=== PATIENT | female | born 1940 | race Caucasian/White ===

== ENCOUNTER 2020-08-09 11:03 | Outpatient (CLI) | payer MEDICARE, SELFPAY | END 2020-08-09 11:04 | disposition home or self-care (01) | LOC: ANHAUDIO 11:06 | DX: H90.3 Sensorineural hearing loss, bilateral (principal) | CPT/HCPCS: 92557; 92567 ==

== ENCOUNTER 2022-10-09 12:01 | Outpatient (CLI) | payer MEDICARE, SELFPAY ==
--- NOTE | 2022-10-09 12:18 | ECG_ITS ---
Measurements Intervals [place] Rate: 55 P: -29 [place]: 200 QRS: -21 QRSD: 86 T: 61 QT: 417 QTc: 399 Interpretive Statements SINUS BRADYCARDIA BORDERLINE LEFT AXIS DEVIATION [QRS AXIS < -20] BORDERLINE ECG NO PREVIOUS ECG AVAILABLE FOR COMPARISON Electronically Signed On 10-09-2022 17:16:44 CDT by James Salmon M.D.
[2022-10-09 12:44] LABS: Hematocrit 42.5 % (37.0-47.0); Hemoglobin 14.2 g/dL (12.0-15.0)
[2022-10-09 12:52] LABS: Albumin Level 4.6 g/dL (3.5-5.1); Estimated Glomerular Filt Rate 36
== END 2022-10-09 12:02 | disposition home or self-care (01) ==
PROVIDERS: PCP Internal Medicine; Visit Provider Orthopaedic Surgery
DX: Z01.818 Encounter for other preprocedural examination (principal); M17.11 Unilateral primary osteoarthritis, right knee; R00.1 Bradycardia, unspecified
CPT/HCPCS: 36415; 82040; 82565; 85014; 85018; 93005

== ENCOUNTER 2022-11-30 10:43 | Outpatient (CLI) | payer MEDICARE, SELFPAY ==
[2022-11-30 11:18] LABS: Hematocrit 39.4 % (37.0-47.0); Hemoglobin 13.1 g/dL (12.0-15.0); Mean Corpuscular HGB Conc 33.2 g/dl (32-36); Mean Corpuscular Hemoglobin 31.5 pg (26-34); Mean Corpuscular Volume 94.7 fl (80-100); Mean Platelet Volume 9.3 fl (7.4-10.4); Platelet Count Result 199 k/mm3 (150-375); Red Blood Count 4.16 M/mm3 (4.2-5.4); Red Cell Distribution Width 12.5 % (11.5-14.5); White Blood Count 7.3 K/mm3 (4.5-10.0)
[2022-11-30 11:26] LABS: Carbon Dioxide 29 mmol/L (22-30); Chloride 98 mmol/L (98-107); Potassium 3.6 mmol/L (3.4-5.0); Sodium 132 mmol/L (137-145)
[2022-11-30 11:27] LABS: Albumin Level 4.2 g/dL (3.5-5.1); Anion Gap 5 mmol/L (8-16); Blood Urea Nitrogen 21 mg/dL (7-17); Calcium 9.2 mg/dL (8.4-10.2); Estimated Glomerular Filt Rate 53; Glucose 106 mg/dL (65-110); Phosphorus 4.2 mg/dL (2.5-4.5)
[2022-11-30 11:49] LABS: Appearance Urine Clear (Clear); Bacteria Urine None Seen /hpf; Bilirubin Urine Negative (Negative); Blood Urine Negative (Negative); Color Urine Yellow (Yellow); Glucose Urine UA Negative (Negative); Hyaline Casts Urine Present /lpf; Ketones Urine Trace mg/dL (Negative); Leukocyte Esterase Ur 1+ LEU/UL (NEGATIVE); Nitrate Urine Negative (Negative); Protein Urine Negative (Negative); RBC Urine 0-2 /hpf (0-2); Specific Grav Ur 1.023 (1.001-1.035); Squamous Epithelial Cell Urine None seen /hpf (Few); WBC Urine 0-5 /hpf (0-3)
[2022-11-30 11:53] LABS: Add Urine Microscopic? YES
== END 2022-11-30 10:44 | disposition home or self-care (01) ==
DX: R79.89 Other specified abnormal findings of blood chemistry (principal)
CPT/HCPCS: 36415; 80069; 81001; 85027

== ENCOUNTER 2022-12-11 13:50 | Outpatient (CLI) | payer MEDICARE, SELFPAY ==
--- NOTE | ~2022-12-11 | CT_ITS ---
EXAMINATION: CT LE RT wo con DATE: 12/11/2022 14:25 INDICATION: Right knee osteoarthritis. Preop planning. TECHNIQUE: Computed tomography (CT) of the right lower limb was performed without intravenous contras t. Automated exposure control and iterative reconstruction technique were employed. The dose-length p roduct was 1750.13 mGy-cm. COMPARISON: Right knee radiographs 08/19/2022 FINDINGS: The right hip demonstrates normal bone alignment. No fracture. There is moderate right hip osteoarthritis. The right knee demonstrates severe osteoarthritis of the medial compartment and mild osteoarthritis of lateral and patellofemoral compartments. There is a small knee joint effusion. Ther e is a large Fam's cyst. IMPRESSION: 1. Severe right knee osteoarthritis. 2. Large Fam's cyst. 3. Small knee joint effusion. 4. Moderate right hip osteoarthritis. Reviewed, dictated and finalized at location E.
== END 2022-12-11 13:51 | disposition home or self-care (01) ==
LOC: ANHIMG 13:54
PROVIDERS: Visit Provider Orthopaedic Surgery
DX: Z01.818 Encounter for other preprocedural examination (principal); M17.11 Unilateral primary osteoarthritis, right knee; M71.21 Synovial cyst of popliteal space [Baker], right knee; M25.461 Effusion, right knee; M16.11 Unilateral primary osteoarthritis, right hip
CPT/HCPCS: 73700

== ENCOUNTER 2022-12-30 07:54 | Outpatient (CLI) | payer MEDICARE, SELFPAY ==
[2022-12-30 10:51] LABS: Urine Cotinine NEGATIVE
[2022-12-30 21:30] LABS: Hemoglobin A1C 5.2 % (<5.7)
== END 2022-12-30 07:55 | disposition home or self-care (01) ==
PROVIDERS: Visit Provider Orthopaedic Surgery
DX: Z01.818 Encounter for other preprocedural examination (principal); M17.11 Unilateral primary osteoarthritis, right knee
CPT/HCPCS: 80307; 83036; 87081

== ENCOUNTER 2023-01-28 01:26 | Day surgery (SDC) | payer MEDICARE, SELFPAY ==
[2022-12-30 08:23] VITALS: BMI 20.3
--- NOTE | 2022-12-30 08:36 | PC.NURSE ---
Report to the Outpatient Waiting Room, entrance under the green pavilion located off [facility], at time _0630 on date __01/28/23 . Planned Procedure Time: _829 . Time changes happen often and if your time is changed the preop area will call you the afternoon before. - You and your visitor will be asked to self-screen and do not enter if you have any COVID symptoms. - A mask is optional within the hospital at this time. Patients may have clear liquids (water, carbonated beverages, clear teas, apple juice) until 3 hours prior to surgery with a maximum of 20 ounces. - No food from midnight until time of surgery - Infants may have breast milk until 4 hours before surgery, formula 6 hours prior to surgery. - Children will be allowed to drink immediately following surgery. If applicable, please bring a bottle or sippy cup to assist with drinking. Juice, water, soda, and popsicles are readily available. For infants on formula, please bring formula the day of surgery. Pacifiers are allowed. Take the following medications with a SIP of water the morning of surgery: ____NONE DO NOT STOP ANY OF YOUR OTHER PRESCRIPTION MEDICATIONS PRIOR TO SURGERY ?EXCEPT THE FOLLOWING Medications to discontinue per physician NONE Date to take last dose TOTAL JOINT CLASS 12/30/22 AT 10 AM Please no make-up, nail hebrew, hairspray, perfume, deodorant, or body powder the day of surgery. No jewelry (including any body piercings) or valuables the day of surgery, leave them at home. Please take a shower or bath the night before, or the morning of, surgery with an antibacterial soap. Wear comfortable, loose fitting clothing. Children are encouraged to wear pajamas. - Jewelry must be removed prior to entering the operating room. Rings and piercings that are not removed may be cut off. - The hospital will not accept responsibility for valuables. - Please leave all valuables, including medications, at home the day of surgery. If you are going home after surgery, a licensed distribution driver must drive you home. - NO public transportation without another adult if you receive anesthesia. - We recommend that an adult stay with you for 24 hours following discharge. - We also recommend that you do not drive, make important decision, drink alcoholic beverages, or take any drugs that were not prescribed by your health care provider for at least 24 hours after your discharge time. For Pediatric surgeries, we recommend two adults accompany the child home. Follow any additional instructions given to you from your surgeon. If you or anyone in your household have experienced Covid symptoms in the past week, please notify your surgeon or the nurse liaison at the phone number below for possible testing. VERBAL AND WRITTEN instructions given to _PATIENT and asked if any additional questions and then verbalized understanding. Patient advised to call surgeon office or pre surgery nurse liaison [phone] if any additional questions.
[2022-12-30 08:51] VITALS: BP 144/77; PULSE 64; RESP 18; TEMP 36.8; O2SAT 100
[2023-01-28] VITALS (12 sets, daily range): BP systolic 123–155; BP diastolic 73–86; PULSE 61–89; RESP 10–20; TEMP 36.4–36.9; O2SAT 96–100
--- NOTE | ~2023-01-28 | XR_ITS ---
Right Knee Technique: Portable AP and crosstable lateral views Clinical History: Status post TKR Findings: Patient is status post total knee replacement. Orthopedic hardware alignment appears anatom ic. No hardware complication is evident. Subcutaneous emphysema and swelling is likely postoperative in nature. No acute osseous fracture is seen. Impression: Status post total knee replacement, without evidence of hardware complication. Reviewed, dictated and finalized at location . Impression: Status post total knee replacement, without evidence of hardware complication.
[2023-01-28] MEDS: ACETAMINOPHEN 500 MG TABLET 1000 MG PO ×2 (07:14→13:41)
[2023-01-28] MEDS: LACTATED RINGERS 1,000 ML 30 ML IV CONT ×2 (07:20→10:53)
[2023-01-28] MEDS: TRANEXAMIC ACID 1,000MG/ISO100 1,000 MG/100 ML BAG 200 MG IVPB (07:36)
--- NOTE | 2023-01-28 07:42 | WPDANESEPPF ---
Anes - Initial Pre Proc Eval Procedure: Operation Date: 01/28/23 08:30 Proposed Procedures p Right Custom Total Knee Arthroplasty - Tyrell Alvarez MD Date/Time: 01/28/23 07:42 Surgeon: Tyrell Alvarez MD Pre Op Diagnosis: primary oa right knee Patient Data Age: 82 Gender: F Height: 1.55 m Weight: 47.7 kg Last Vital Signs Temp 36.7 C 01/28/23 07:32 Pulse 65 01/28/23 07:32 Resp 16 01/28/23 07:32 BP 133/81 01/28/23 07:32 Pulse Ox 100 01/28/23 07:32 O2 Del Method Room Air 01/28/23 07:32 Allergies Allergy/AdvReac Type Severity Reaction Status Date / Time No Known Allergies Allergy Verified 01/28/23 07:31 Home Medications Medication Instructions Recorded Confirmed Type acetaminophen 500 mg tablet 1,000 mg PO Q6H PRN Pain 11/08/19 01/28/23 History (Tylenol Extra Strength) amlodipine 10 mg tablet 10 mg PO HS 12/30/22 01/28/23 History tramadol 50 mg tablet 50 mg PO PRN PRN Pain 12/30/22 01/28/23 History Patient hx anesthesia problems: none Family hx anesthesia problems: none Results Review: All pre-operative results and documents have been reviewed as part of the pre-operative evaluation. 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, left Family History Family History Other Family history of arthritis Social History Social History Smoking status: Never smoker Additional smoking assessment comments: DENIES ANY FORM OF TOBACCO USE Alcohol intake: current Lack of Transportation: No Lack of Food: Never True Current Housing: I Have Housing Concerned About Future Housing: No Difficulty Paying Gas/Electric Bills: No Difficulty Paying for Meds: No Currently Unemployed: No Education: High School Diploma/GED Difficulty w/ Childcare or Family Care: No Living arrangements: alone Spiritual care concerns: No Anes - Eval Final PreProcedure Day of Procedure 01/28/23 07:42 Patient weight: thin Heart: regular rate and rhythm Lungs: clear to auscultation Airway: Mallampati scale class II Neurological: alert and oriented Last oral intake: >/= 8 hours ASA classification: II Emergent: no Anesthetic plan: proceed Anesthesia type and monitoring: general LMA and standard monitoring Results Review: All pre-operative results and documents have been reviewed as part of the pre-operative evaluation. Informed Consent: The patient's anesthetic plan and its attendant risks and benefits were discussed with the patient/family/POA. Questions were solicited and answers provided to the satisfaction of the patient/family/POA.
--- NOTE | 2023-01-28 08:26 | WPDHPUPDATE1 ---
History and Physical Update Update Date/Time: 01/28/23 08:26 History and Physical has been reviewed, including an updated exam of the patient. There are NO changes in the patient's condition. Risks, benefits, and alternatives have been discussed and questions answered. Patient agrees to proceed with procedure.
--- NOTE | 2023-01-28 08:42 | WPDANESPNB ---
Anes - Peripheral Nerve Block Date/Time: 01/28/23 08:42 I have discussed with the patient/family/POA the placement of a peripheral nerve block for post-operative pain management, including associated risks, benefits, complications, and side effects. Alternative methods of post-operative analgesia were detailed. Questions were solicited and answers provided to the satisfaction of the patient/family/POA. Time-Out: A pre-procedural Time-Out was completed immediately before starting the procedure and confirmed: Patient Identification, Site, Procedure, Patient Position and the Availability of Requisite Equipment. Clinical Indications: Acute post-operative pain management requested by the operative surgeon. Nerve Block Insertion Note Anes-nerve block: adductor canal right Patient position: supine Skin prep: chlorhexidine Needle: 22 gauge, stimulating, insulated echogenic needle. Needle length: 50 mm Technique: ultrasound Injectate: bupivacaine 0.5% with epi 5 mcg/ml (30cc no epi) and dexamethasone (mg) (8) Observations: tolerated well Complications: none Procedure start time:: 734 Procedure end time:: 739
[2023-01-28] MEDS: ceFAZolin 2 GM/D5W 50 ML 2 GM/50 ML BAG IVPB ×2 (08:44→16:28)
[2023-01-28] MEDS: GENTAMICIN BONE CEMENT REFOBACIN 1 EACH TOPICAL (09:22)
--- NOTE | 2023-01-28 11:44 | PC.NURSE ---
To room 327 per stretcher from OR.
--- NOTE | 2023-01-28 12:41 | W.PM.PROC2 ---
Procedure Note - Detailed Date of Procedure 01/28/23 Pre-op Diagnosis primary oa right knee Post-op Diagnosis Same Procedure Performed Total knee arthroplasty, right. Surgeon Tyrell Alvarez MD High Pressure Cleaner Louann Saba PA-C Anesthesia General and Regional (Subsartorial block.) Findings Satisfactory bone quality. Semi custom implant with excellent fit and balance. Description of Procedure Preoperative antibiotics were given. The limb was prepped and draped in the usual sterile fashion with a well-padded tourniquet high on the thigh. The limb was exsanguinated and the tourniquet inflated to 300 mmHg. A longitudinal incision was created just medial to the patella. A trivector approach to the knee was performed. Arthrotomy was taken down through the joint capsule. No significant releases were initially taken. The femur was exposed and the F1 jig was applied. The coring tool was used to remove the cartilage for the F2 jig to sit flush with the bone. The jig was pinned and the distal cut carefully taken. Caliper measurements confirmed appropriate bony resections according to the preoperative templated plan. The F4 cutting jig for the femur was applied, at the standard rotation. The AP and anterior chamfer cuts were taken. The F5 jig was applied and the posterior chamfer cuts were taken. The tibia was prepared using the T1 jig, after removing cartilage for the jig contact points. Proper alignment was checked with the alignment irineo. The tibia was cut using the T1u guide. Gap balancing was performed. Gap measurements were taken and the knee was trialed. Excellent alignment and soft tissue balancing was confirmed. The posterior cruciate ligament was recessed along the proximal tibia. The patella was cut for resurfacing. Three lug holes were drilled. Meniscal remnants were removed. The trial components were assembled. Excellent range of motion and proper soft tissue balancing were confirmed throughout the full range of motion. Patellar tracking was excellent. The knee was copiously irrigated periodically throughout the procedure. The real implants were cemented into position. Excess cement was carefully removed. The wound was closed in layers with interrupted #1 Vicryl suture, #2 strata fix suture, 2-0 strata fix suture, 3-0 strata fix suture. Steri-Strips placed on the skin with the knee flexed. Sterile bulky dressing applied. The patient was brought to the recovery room in stable condition. There were no complications. [Physician geological survey field assistant, Louann Saba PA-C, required for surgery; including patient positioning, draping, tissue retraction, maintaining instrument position, cement removal, wound closure, and dressing placement.] Implants Conformis Imprint total knee arthroplasty. Cemented. Cruciate retaining. 7 mm insert. 32 mm round patella. Estimated Blood Loss 50 Tourniquet Time 65 Drains No Complications No immediate complications Condition Stable Disposition PACU [facility] Billing Surgery - Charge Forward: Surgery Billing
[2023-01-28] MEDS: SENNA/DOCUSATE SODIUM TABLET 2 TAB PO (16:28)
[2023-01-28] MEDS: ASPIRIN 81 MG ENTERIC TABLET PO (16:29)
[2023-01-28] MEDS: traMADol HCL (*CRX) 50 MG TABLET PO (16:29)
[2023-01-28] MEDS: FAMOTIDINE 20 MG TABLET PO (20:33)
[2023-01-28] MEDS: amLODIPine BESYLATE 5 MG TABLET 10 MG PO (20:33)
[2023-01-29] VITALS: BP 143/76; PULSE 87; RESP 14; TEMP 36.6; O2SAT 96
[2023-01-29] MEDS: ACETAMINOPHEN 500 MG TABLET 1000 MG PO ×3 (00:17→11:34)
[2023-01-29] MEDS: ceFAZolin 2 GM/D5W 50 ML 2 GM/50 ML BAG IVPB (00:18)
[2023-01-29 04:00] VITALS: BP 120/71; PULSE 71; RESP 12; TEMP 36.2; O2SAT 97
[2023-01-29 06:36] LABS: Basophils Percent Auto 0.2 % (0.2-1.2); Eosinophils Percent Auto 0.4 % (0-4.4); Hematocrit 32.9 % (37.0-47.0); Hemoglobin 10.8 g/dL (12.0-15.0); Immature Granulocyte Absolute 0.06 K/mm3 (0.00-0.031); Immature Granulocyte Percent A 0.6 % (0-0.5); Lymphocytes Absolute Auto 0.86 K/mm3 (0.9-3.2); Lymphocytes Percent Auto 8.2 % (18.3-44.2); Mean Corpuscular HGB Conc 32.8 g/dl (32-36); Mean Corpuscular Hemoglobin 30.8 pg (26-34); Mean Corpuscular Volume 93.7 fl (80-100); Mean Platelet Volume 9.3 fl (7.4-10.4); Monocytes Absolute Auto 1.1 K/mm3 (0.1-0.6); Monocytes Percent Auto 10.3 % (2.6-8.5); Neutrophils Absolute Auto 8.5 K/mm3 (1.3-6.7); Neutrophils Percent Auto 80.3 % (45.5-73.1); Platelet Count Result 185 k/mm3 (150-375); Red Blood Count 3.51 M/mm3 (4.2-5.4); Red Cell Distribution Width 13.2 % (11.5-14.5); White Blood Count 10.5 K/mm3 (4.5-10.0)
[2023-01-29 07:06] LABS: Anion Gap 6 mmol/L (8-16); Blood Urea Nitrogen 21 mg/dL (7-17); Calcium 8.4 mg/dL (8.4-10.2); Carbon Dioxide 27 mmol/L (22-30); Chloride 101 mmol/L (98-107); Estimated CRCL calculation 33 ml/min; Estimated Glomerular Filt Rate 60; Glucose 97 mg/dL (65-110); Potassium 3.4 mmol/L (3.4-5.0); Sodium 134 mmol/L (137-145)
--- NOTE | 2023-01-29 08:13 | PM.DS ---
DS: Admitting Diagnosis Discharge Date 01/29/23 Admitting Diagnosis OA knee Right DS: Discharge Diagnosis Discharge Diagnosis (1) Status post total right knee replacement: Code(s): Z96.651 - Presence of right artificial knee joint Status: Acute Assessment and Plan: Postop day 1: Right total knee arthroplasty. Patient tolerated procedure well. No complications. Pain manageable with pain medication. No numbness or tingling. We had a lengthy discussion regarding postoperative wound care, limitations, expectations, and exercises. Patient shows good understanding. She has had initial physical therapy and is tolerating it well. DVT prophylaxis: 81 mg baby aspirin b.i.d. for 14 days. Pain medication: Percocet. Meloxicam. Prednisone. Patient has followup appointment with Dr. Alvarez in 3 weeks. DS: Summary Hospital Course Reason for hospitalization: Total knee arthroplasty Hospital Course: Patient tolerated procedure well. Has had initial PT/OT. Status at Discharge Functional status at discharge: uses cane/walker Overall status at discharge: patient is progressing back to baseline Time Spent with Patient Time attestation: Total time spent providing and/or coordinating discharge services: Exam Narrative: Thin 82-year-old female. Resting comfortably in chair. Alert and oriented x3. No acute distress. Wearing compression socks bilaterally. Dressing dry and intact without drainage. Moderate swelling. No ecchymosis. No erythema. No hematoma. Range of motion limited due to pain. Calf nontender. Neurologic status intact. No varicosities. Distal pulses palpable. DS: Data Data Completed and Pending Labs on day of discharge: Labs from last 24 hours 01/29/23 01/28/23 06:16 07:12 WBC 10.5 H RBC 3.51 L Hgb 10.8 L Hct 32.9 L MCV 93.7 MCH 30.8 MCHC 32.8 RDW 13.2 Plt Count 185 MPV 9.3 Immature Gran % (Auto) 0.6 H Neut % (Auto) 80.3 H Lymph % (Auto) 8.2 L [place] % (Auto) 10.3 H Eos % (Auto) 0.4 Baso % (Auto) 0.2 Lymph # (Auto) 0.86 L [place] # (Auto) 1.1 H Eos # (Auto) 0.0 Baso # (Auto) 0.0 Abs Immat Gran (auto) 0.06 H Absolute Neuts (auto) 8.5 H Absolute Nucleated RBC 0.0 Nucleated RBC % 0.0 Sodium 134 L Potassium 3.4 Chloride 101 Carbon Dioxide 27 Anion Gap 6 L BUN 21 H Creatinine 0.90 Estim Creat Clear Calc 33 Estimated GFR 60 Glucose 97 Calcium 8.4 Antibody Screen Negative Discharge Plan Discharge Patient Disposition: Home, Self-Care Discharge Instructions: See green instruction sheets Stand Alone Forms: General Discharge Instructions Follow-up/Referrals: Louann Saba PA [Physician Sales Route Driver Helper] - Discharge Medications: New aspirin 81 mg tablet,delayed release (DR/EC) 81 mg PO BID 14 Days Qty: 28 0RF prednisone 5 mg tablet 5 mg PO DAILY 21 Days Qty: 21 0RF oxycodone-acetaminophen 5-325 mg tablet 1 - 2 tablet PO Q4-6H MDD 6 PRN (Reason: pain) Qty: 30 0RF Continued acetaminophen [Tylenol Extra Strength] 500 mg tablet 1,000 mg PO Q6H PRN (Reason: Pain) amlodipine 10 mg tablet 10 mg PO QPM tramadol 50 mg tablet 50 mg PO PRN PRN (Reason: Pain)
[2023-01-29] MEDS: FAMOTIDINE 20 MG TABLET PO (08:44)
[2023-01-29] MEDS: polyethylene glycoL 3350 17 GM POWD.PACK PO (08:44)
[2023-01-29] MEDS: SENNA/DOCUSATE SODIUM TABLET 2 TAB PO (08:44)
[2023-01-29] MEDS: predniSONE 5 MG TABLET PO (08:45)
[2023-01-29] MEDS: oxyCODONE HCL (*CRX) 5 MG TAB IR PO (08:45)
[2023-01-29] MEDS: ASPIRIN 81 MG ENTERIC TABLET PO (08:45)
[2023-01-29 09:28] VITALS: BP 107/65; PULSE 70; RESP 16; TEMP 36.6; O2SAT 98
[2023-01-29] MEDS: CEPHALEXIN 500 MG CAPSULE PO (11:34)
== END 2023-01-29 12:30 | disposition home or self-care (01) ==
LOC: ANHSURGERY 08:25 → ANH3MEDSUR 11:45
PROVIDERS: Physician Assistant Surgical; Visit Provider Orthopaedic Surgery
PROC: (CPT 27447; principal; 2023-01-28 08:30)
DX: M17.11 Unilateral primary osteoarthritis, right knee (principal); G89.18 Other acute postprocedural pain; I10 Essential (primary) hypertension
CPT/HCPCS: 27447; 64447; 36415; 73560; 80048; 85025; 86850; 86900; 86901; 97110; 97116; 97161; 97165; 97530; 97535; A9270; C1713; C1776; J0171; J0690; J1100; J1170; J1885; J2250; J2270; J2405; J2704; J2795; J3010; J7120; J7512

== ENCOUNTER 2023-03-15 10:15 | Outpatient (CLI) | payer MEDICARE, SELFPAY ==
[2023-03-15 11:13] LABS: Hematocrit 37.5 % (37.0-47.0); Hemoglobin 12.1 g/dL (12.0-15.0); Mean Corpuscular HGB Conc 32.3 g/dl (32-36); Mean Corpuscular Hemoglobin 30.6 pg (26-34); Mean Corpuscular Volume 94.7 fl (80-100); Mean Platelet Volume 9.2 fl (7.4-10.4); Platelet Count Result 230 k/mm3 (150-375); Red Blood Count 3.96 M/mm3 (4.2-5.4); Red Cell Distribution Width 12.7 % (11.5-14.5); White Blood Count 6.2 K/mm3 (4.5-10.0)
[2023-03-15 11:29] LABS: Albumin Level 4.1 g/dL (3.5-5.1); Anion Gap 8 mmol/L (8-16); Blood Urea Nitrogen 15 mg/dL (7-17); Calcium 9.3 mg/dL (8.4-10.2); Carbon Dioxide 30 mmol/L (22-30); Chloride 96 mmol/L (98-107); Estimated Glomerular Filt Rate 53; Glucose 94 mg/dL (65-110); Phosphorus 3.5 mg/dL (2.5-4.5); Potassium 3.3 mmol/L (3.4-5.0); Sodium 134 mmol/L (137-145)
[2023-03-15 15:17] LABS: Appearance Urine Cloudy (Clear); Bacteria Urine None Seen /hpf; Bilirubin Urine Negative (Negative); Blood Urine Negative (Negative); Color Urine Dark Yellow (Yellow); Glucose Urine UA Negative (Negative); Hyaline Casts Urine Present /lpf; Ketones Urine Negative (Negative); Leukocyte Esterase Ur Trace LEU/UL (Negative); Nitrate Urine Negative (Negative); Protein Urine 1+ mg/dL (Negative); RBC Urine 0-2 /hpf (0-2); Specific Grav Ur 1.017 (1.001-1.035); Squamous Epithelial Cell Urine Occasional /hpf (Few); pH Urine 6.5 (5.0-9.0)
[2023-03-15 15:18] LABS: Add Urine Microscopic? YES
== END 2023-03-15 10:16 | disposition home or self-care (01) ==
DX: I12.9 Hypertensive chronic kidney disease with stage 1 through stage 4 chronic kidney disease, or unspecified chronic kidney disease (principal); N18.31 Chronic kidney disease, stage 3a; M19.90 Unspecified osteoarthritis, unspecified site
CPT/HCPCS: 36415; 80069; 81001; 85027; 87086

== ENCOUNTER 2023-04-10 09:31 | Outpatient (CLI) | payer MEDICARE, SELFPAY ==
--- NOTE | 2023-04-10 | ECHO_ITS ---
Patient Info Name: Jia Sequeira Age: 83 years : 1940 Gender: Female Ht: 61 in Wt: 105 lbs BSA: 1.43 m2 HR: 75 bpm BP: 172 / 102 mmHg Heart Rhythm: Sinus Rhythm Technical Quality: Good Exam Date: 04/10/2023 9:45 AM Exam Location: Echo Lab Patient Status: Outpatient Admit Date: 04/10/2023 Staff Ordering Physician: KYLE, Saw Setter: Zen Regalado RDCS Attending Provider: ChristianoFaye Exam Type: CA echo doppler color flow Study Info Indications - MURMUR Complete two-dimensional, color flow and Doppler transthoracic echocardiogram is performed. Summary 1. Complete two-dimensional, color flow and Doppler transthoracic echocardiogram is performed. 2. Left ventricular chamber dimension is normal. 3. Left ventricular systolic function is normal, estimated at 60-65%. 4. There is mildly increased left ventricular wall thickness. 5. The left ventricular diastolic function is grade I diastolic dysfunction. 6. Right ventricular systolic function is normal. 7. There is trace aortic valve regurgitation. 8. There is trace mitral valve regurgitation. 9. There is mild to moderate tricuspid valve regurgitation. 10. There is trace pulmonic regurgitation. Left Ventricle Left ventricular chamber dimension is normal. Left ventricular systolic function is normal, estimated at 60-65%. There is mildly increased left ventricular wall thickness. The left ventricular diastolic function is grade I diastolic dysfunction. Right Ventricle Right ventricular chamber dimension is normal. Right ventricular systolic function is normal. Left Atria Left atrial chamber dimension is normal. Right Atria Right atrial chamber dimension is normal. Atrial Septum Intact interatrial septum visualized by color flow imaging. Aortic Valve The aortic valve is trileaflet. There is no aortic valve stenosis. There is trace aortic valve regurgitation. There is mild aortic valve calcification. Pulmonic Valve The pulmonic valve is not well visualized. There is trace pulmonic regurgitation. Mitral Valve There is trace mitral valve regurgitation. Tricuspid Valve There is mild to moderate tricuspid valve regurgitation. Pericardium/Pleural There is no pericardial effusion. Inferior Vena Cava Normal inferior vena cava with >50% collapse upon inspiration consistent with normal right atrial pressure, 3 mmHg. Aorta The aortic root size at the sinus of Valsalva is normal. Left Ventricular Outflow Tract Name Value Normal LVOT 2D LVOT Diameter 2.0 cm LVOT Doppler LVOT Peak Gradient 4 mmHg LVOT Mean Gradient 2 mmHg LVOT VTI 23 cm LVOT VTI/AV VTI Ratio 0.9 LVOT Stroke Volume 71 ml LVOT CO 4.3 l/min LVOT CI 3.0 l/min/m2 Pulmonic Valve Name Value Normal RVOT Doppler
== END 2023-04-10 09:32 | disposition home or self-care (01) ==
LOC: ANHCARD 09:34
DX: R01.1 Cardiac murmur, unspecified (principal); R06.02 Shortness of breath; I36.1 Nonrheumatic tricuspid (valve) insufficiency
CPT/HCPCS: 93306

== ENCOUNTER 2023-04-19 17:43 | Inpatient (IN) | payer MEDICARE, SELFPAY ==
--- NOTE | ~2023-04-19 | XR_ITS ---
EXAMINATION: [id number] DATE: 04/19/2023 18:39 INDICATION: Right knee injury post fall TECHNIQUE: AP and crosstable lateral views of the right knee were obtained. COMPARISON: 01/28/2023 FINDINGS: Right total knee arthroplasty with patellar resurfacing which remains in near-anatomic alignment. No fracture. No periprosthetic lucency to suggest loosening or infection. Soft tissues are unremarkable with no knee joint effusion. IMPRESSION: 1. Right total knee arthroplasty with no acute osseous abnormality. Reviewed, dictated and finalized at location A. GRAPHIC ANALYST
--- NOTE | ~2023-04-19 | XR_ITS ---
EXAMINATION: XR thoracic spine 2V DATE: 04/25/2023 12:11 INDICATION: Thoracic back pain TECHNIQUE: AP, lateral and lateral swimmer's views of the thoracic spine were obtained. COMPARISON: None. FINDINGS: Bone alignment is normal. There is no fracture. There is severe loss of intervertebral disc space height throughout the thoracic spine. The vertebral body heights are maintained. IMPRESSION: 1. Severe thoracic spondylosis without acute findings. Reviewed, dictated and finalized at location F. AL LABORATORY HELPER
--- NOTE | ~2023-04-19 | XR_ITS ---
EXAMINATION: XR hip RT 2V w AP pelvis DATE: 04/19/2023 18:38 INDICATION: Right hip fracture TECHNIQUE: Anteroposterior view of the pelvis and anteroposterior and cross-table lateral views of th e right hip were obtained. COMPARISON: 12/04/2015 FINDINGS: Transcervical fracture of the proximal right femur with 1.5 cm proximal migration and varus angulatio n. The right femoral head remains normally centered in the right acetabulum but is rotated as with ab duction. No other fractures identified. Left total hip arthroplasty. L3-S1 instrumented posterior spi nal fusion with bilateral vertical irineo and pedicle screw fixation. There is also a bone graft cage fo r L5-S1 anterior spinal fusion. IMPRESSION: 1. Displaced transcervical fracture of the proximal right femur. Reviewed, dictated and finalized at location A. T DESK SPECIALIST
--- NOTE | ~2023-04-19 | XR_ITS ---
EXAMINATION: XR chest 1V DATE: 04/19/2023 18:39 INDICATION: Hip fracture post fall TECHNIQUE: frontal view of the chest was obtained. COMPARISON: None FINDINGS: The lungs are clear with no focal airspace opacities, pulmonary edema, pleural effusion or pneumothor ax. The cardiomediastinal silhouette is within normal limits for AP technique. Severe lower thoracic and upper lumbar spondylosis. Partially visualized vertical irineo and pedicle screw fixation for an lum bar posterior spinal fusion. IMPRESSION: 1. No acute cardiopulmonary disease. Reviewed, dictated and finalized at location A. IAL PROCEDURES TECH
--- NOTE | ~2023-04-19 | XR_ITS ---
EXAMINATION: XR hip RT min 2V DATE: 04/22/2023 15:35 INDICATION: Right total hip arthroplasty TECHNIQUE: Anteroposterior and cross-table lateral views of the right hip were obtained. COMPARISON: 04/19/2023 FINDINGS: Interval resection of the fractured right femoral head neck and placement of a noncemented right tota l hip arthroplasty which is in near-anatomic alignment. No new fractures identified. Expected small a mount of soft tissue gas at the operative bed. Contralateral left total hip arthroplasty. Again seen are changes of L4 and L5 laminectomies and partially visualized instrumented anterior and posterior l umbar spinal fusion. IMPRESSION: 1. Right total hip arthroplasty in near-anatomic alignment, negative for postoperative purposes. Reviewed, dictated and finalized at location A. ER IMPRESSION: 1. Right total hip arthroplasty in near-anatomic alignment, negative for postop erative purposes.
--- NOTE | 2023-04-19 17:44 | ECG_ITS ---
Measurements Intervals [place] Rate: 60 P: 67 [place]: 187 QRS: -11 QRSD: 78 T: 59 QT: 432 QTc: 432 Interpretive Statements SINUS RHYTHM POSSIBLE LEFT ATRIAL ENLARGEMENT RSR' IN V1 OR V2, PROBABLY NORMAL VARIANT BASELINE ARTIFACT- I, II, AVR, AVL, AVF, V1-V2 BORDERLINE ECG COMPARED TO ECG 10/09/2022 12:21:35 SINUS RHYTHM NOW PRESENT Electronically Signed On 04-19-2023 19:21:34 HOLLOW HANDLE KNIFE ASSEMBLER by Emmanuel Baptiste D.O.
[2023-04-19 17:50] VITALS: BP 165/74; PULSE 62; RESP 16; TEMP 36.7; O2SAT 100
--- NOTE | 2023-04-19 18:00 | ED.GENADULT ---
HPI - General Adult General Chief complaint: Fall <Riaz Leiva PA-C - Last Filed: 04/20/23 01:38> Stated complaint: fall/ hip <Riaz Leiva PA-C - Last Filed: 04/20/23 01:38> Time Seen by Provider: 04/19/23 17:52 <Riaz Leiva PA-C - Last Filed: 04/20/23 01:38> Source: patient <ANDI Olson Last Filed: 04/20/23 01:38> Mode of arrival: EMS <ANDI Olson Last Filed: 04/20/23 01:38> Limitations: no limitations <Riaz Leiva PA-C - Last Filed: 04/20/23 01:38> History of Present Illness HPI narrative: This is an 83 year old female who presents to the ED via EMS with chief complaint of a fall and right hip injury just prior to arrival. Patient reports she was on the step stool and accidentally fell backwards from a 2 ft height. She reports falling onto her right side and he feeling a pop in the right hip. Denies head injury or LOC. Denies blood thinners. She had a right knee replacement in January of 2023 but denies any knee pain now. Denies any numbness to the distal extremity. Denies any further sites of pain or injury. Per nursing, she received 50 mcg fentanyl EN route with EMS <Riaz Leiva PA-C - Last Filed: 04/20/23 01:38> Related Data Home medications: Home Medications Medication Instructions Recorded Confirmed acetaminophen 500 mg tablet 1,000 mg PO Q6H PRN Pain 11/08/19 04/19/23 (Tylenol Extra Strength) celecoxib 200 mg capsule 200 mg PO QTUTHSU 04/19/23 04/19/23 losartan 50 mg tablet 50 mg PO DAILY 04/19/23 04/19/23 tramadol 50 mg tablet 50 mg PO Q12H PRN Pain 04/19/23 04/19/23 zoledronic acid 5 mg/100 mL in 5 mg IV ONCE 04/19/23 04/19/23 mannitol 5 %-water intravenous piggybck (Reclast) oxycodone-acetaminophen 5 mg-325 1 - 2 tablet PO Q4H 04/20/23 04/20/23 mg tablet <Riaz Leiva PA-C - Last Filed: 04/20/23 01:38> Allergies/adverse reactions: Allergies Allergy/AdvReac Type Severity Reaction Status Date / Time No Known Allergies Allergy Verified 03/18/23 13:44 <Riaz Leiva PA-C - Last Filed: 04/20/23 01:38> Review of Systems Review of Systems: All systems as dictated in HPI <Riaz Leiva PA-C - Last Filed: 04/20/23 01:38> [facility] Past Medical History Medical History: Medical History Cervical radiculopathy at C6 HTN (hypertension) <Riaz Leiva PA-C - Last Filed: 04/20/23 01:38> Surgical History Surgical History: Surgical History History of total right knee replacement (~01/28/23) Presence of left artificial knee joint (04/21/18) Status post total hip replacement, left <Riaz Leiva PA-C - Last Filed: 04/20/23 01:38> Family History Family History: Family History Other Family history of arthritis <Riaz Leiva PA-C - Last Filed: 04/20/23 01:38> Social History Social History: Social History Smoking status: Never smoker Additional smoking assessment comments: DENIES ANY FORM OF TOBACCO USE Alcohol intake: current Substance use: never Do You Feel Safe in your Home?: Yes Lack of Transportation: No Lack of Food: Never True Current Housing: I Have Housing Concerned About Future Housing: No Difficulty Paying Gas/Electric Bills: No Difficulty Paying for Meds: No Currently Unemployed: No Education: Don't Know Difficulty w/ Childcare or Family Care: No Living arrangements: alone Spiritual care concerns: No <ANDI Olson Last Filed: 04/20/23 01:38> Exam Narrative: GENERAL: Well-appearing, well-nourished, and in no acute distress. HEAD: Normocephalic, atraumatic. EYES: PERRLA and EOMI. ENT: Nares clear, no rhinorrhea or epistaxis. Mucous membranes moist. Oropharynx without tonsillar
[2023-04-19 18:15] LABS: Basophils Absolute Auto 0.1 K/mm3 (0.0-0.1); Basophils Percent Auto 0.7 % (0.2-1.2); Eosinophils Absolute Auto 0.1 K/mm3 (0-0.3); Eosinophils Percent Auto 1.5 % (0-4.4); Hematocrit 41.1 % (37.0-47.0); Hemoglobin 12.8 g/dL (12.0-15.0); Immature Granulocyte Absolute 0.09 K/mm3 (0.00-0.031); Immature Granulocyte Percent A 1.3 % (0-0.5); Lymphocytes Percent Auto 7.4 % (18.3-44.2); Mean Corpuscular HGB Conc 31.1 g/dl (32-36); Mean Corpuscular Hemoglobin 30.2 pg (26-34); Mean Corpuscular Volume 96.9 fl (80-100); Mean Platelet Volume 9.4 fl (7.4-10.4); Monocytes Absolute Auto 0.4 K/mm3 (0.1-0.6); Monocytes Percent Auto 6.1 % (2.6-8.5); Neutrophils Absolute Auto 5.6 K/mm3 (1.3-6.7); Platelet Count Result 207 k/mm3 (150-375); Red Blood Count 4.24 M/mm3 (4.2-5.4); Red Cell Distribution Width 12.9 % (11.5-14.5); White Blood Count 6.7 K/mm3 (4.5-10.0)
[2023-04-19 18:26] LABS: Alanine Aminotransferase 20 U/L (6-35); Alkaline Phosphatase 73 U/L (38-126); Anion Gap 8 mmol/L (8-16); Aspartate Amino Transferase 32 U/L (14-36); Bilirubin,Total 0.5 mg/dL (0.2-1.3); Blood Urea Nitrogen 25 mg/dL (7-17); Carbon Dioxide 27 mmol/L (22-30); Chloride 101 mmol/L (98-107); Estimated CRCL calculation 38 ml/min; Estimated Glomerular Filt Rate > 60; Glucose 99 mg/dL (65-110); Potassium 3.8 mmol/L (3.4-5.0); Sodium 136 mmol/L (137-145)
[2023-04-19 18:29] LABS: Prothrombin Time 13.9 Seconds (11.1-14.7)
[2023-04-19 18:30] LABS: Partial Thromboplastin Time 24.6 SECONDS (22.3-36.8)
[2023-04-19] MEDS: HYDROmorphone HCL INJ (*CRX) 1 MG/ML SYR 0.5 MG IV PUSH ×2 (18:59→19:52)
[2023-04-19 19:36] VITALS: PULSE 68; RESP 20; O2SAT 100
[2023-04-19 19:51] VITALS: BP 169/94; PULSE 77; RESP 16; O2SAT 97
[2023-04-19] MEDS: SODIUM CHLORIDE 0.9% IV 1,000 ML 999 ML IV CONT (20:14)
[2023-04-19] MEDS: HYDROmorphone HCL INJ (*CRX) 1 MG/ML SYR IV PUSH ×2 (20:45→23:19)
--- NOTE | 2023-04-19 20:48 | PC.NURSE ---
Pt called out requesting pain meds. stating severe pain.
[2023-04-19 20:49] VITALS: BP 160/94; PULSE 86; RESP 16; O2SAT 98
[2023-04-19 22:39] VITALS: BMI 19.9
--- NOTE | 2023-04-19 22:51 | ADMGEN ---
This patient, Jia Sequeira, was admitted to [facility] S[facility] Room 324-01. Patient/family oriented to hospital policies and general routines including ID bracelet, bed and alarms, visiting hours, pain management, procedures, bathroom and other care routines, personal items, smoking policy, room service/diet, and visiting hours. Information on how to activate the Rapid Response Team has been discussed. Patient/Family are encouraged to report perceived risks to care and to ask questions if they do not understand what they are told or what they should do.
[2023-04-19 23:00] VITALS: BP 164/84; PULSE 77; RESP 16; TEMP 36.8; O2SAT 95
[2023-04-20] MEDS: ACETAMINOPHEN 325 MG TABLET 650 MG PO (02:48)
[2023-04-20] MEDS: HYDROmorphone HCL INJ (*CRX) 1 MG/ML SYR IV PUSH ×2 (02:53→07:01)
--- NOTE | 2023-04-20 04:26 | PM.IMHP ---
H&P: HPI History of Present Illness Date/Time: 04/20/23 04:26 Chief Complaint: Right hip pain after falling Narrative: 83-year-old loquacious female past medical history osteoporosis, essential hypertension and multiple joint replacements who presented to the ER after having fallen off of bench Palmer trying to hang a sheet over her window. She reported that immediately when she fell she knew that she broke her hip. She was unable to stand up and pulled herself across the floor by her finger tips to reach the phone. She was able to call 1 of her granddaughters for assistance and then was brought in by EMS. Patient reports the pain was 10/10 in severity with any movement or position changes. She has intact sensation of her lower extremities besides her chronic peripheral neuropathy from prior spine surgery. She has bruises noted to her elbows but denies any significant pain there. She called her granddaughter when she woke up a couple hours after admission when she developed chest discomfort. The patient thinks that the chest pain is due to her pulling herself across the floor when she fell. She had recent echocardiogram 04/10/2023 that was performed due to murmur echocardiogram demonstrated normal EF and grade 1 diastolic dysfunction trace aortic valve regurgitation and mitral valve regurgitation as well as [id number] tricuspid regurgitation was also noted. She denies having any dyspnea on exertion, cough, congestion or orthopnea. She denies any lower extremity swelling. She otherwise feels well. Patient's case was discussed with the patient's granddaughter, Daksha (ER nurse at our facility), with the patient's permission. They were updated as to the plan of care. Review of Systems Review of Systems: 12 systems were reviewed with pertinent positives and negatives per HPI. Except as documented in the HPI, all other systems were reviewed and are negative. She reports that she does have intermittent bladder leakage due to her age. She denies any dysuria or hematuria PMF Past Medical History Medical History (Updated 04/20/23 @ 04:55 by Tatiana Caballero DO) Cervical radiculopathy at C6 Eczema Essential hypertension Peripheral neuropathy Due to lumbar spine surgery Surgical History Surgical History (Updated 04/20/23 @ 04:49 by Tatiana Caballero DO) History of lumbar surgery History of total right knee replacement (~01/28/23) Presence of left artificial knee joint (04/21/18) Status post cataract extraction of both eyes with insertion of intraocular lens Status post total hip replacement, left Family History Family History Other Family history of arthritis Social History Social History (Updated 04/20/23 @ 04:47 by Tatiana Caballero DO) Social History: The patient is and lives in her own home. She is independent activities of daily living. She drinks alcohol on occasion but only in moderation. Code status: DNR/DNI (per patient request) Smoking status: Never smoker Additional smoking assessment comments: DENIES ANY FORM OF TOBACCO USE Alcohol intake: current Substance use: never Do You Feel Safe in your Home?: Yes Lack of Transportation: No Lack of Food: Never True Current Housing: I Have Housing Concerned About Future Housing: No Difficulty Paying Gas/Electric Bills: No Difficulty Paying for Meds: No Currently Unemployed: No Education: Don't Know Difficulty w/ Childcare or Family Care: No Living arrangements: alone Spiritual care concerns: No Meds Home Medications and Allergies Home Medications Medication Instructions Recorded Confirmed Type acetaminophen 500 mg tablet 1,000 mg PO Q6H PRN Pain 11/08/19 04/19/23 History (Tylenol Extra Strength) celecoxib 200 mg capsule 200 mg PO QTUTHSU 04/19/23 04/19/23 History losartan 50 mg tablet 50 mg PO DAILY 04/19/23 04/19/23 History tramadol 50 mg
[2023-04-20 06:00] VITALS: BP 166/88; PULSE 72; RESP 16; TEMP 36.3; O2SAT 95
[2023-04-20] MEDS: ACETAMINOPHEN 500 MG TABLET 1000 MG PO (07:00)
[2023-04-20 07:24] LABS: Troponin I < 0.012 ng/mL (0.000-0.034)
[2023-04-20] MEDS: EUCERIN CREAM 120 GM JAR 1 APPLIC TOPICAL (09:32)
[2023-04-20] MEDS: LOSARTAN POTASSIUM 50 MG TABLET PO (09:39)
[2023-04-20 09:49] LABS: Troponin I < 0.012 ng/mL (0.000-0.034)
[2023-04-20] MEDS: oxyCODONE/ACETAMINOPHEN (*CRX) 5-325 MG TABLET 1 TABLET PO ×4 (11:02→22:19)
[2023-04-20 14:00] VITALS: BP 182/88; PULSE 68; RESP 18; TEMP 35.8; O2SAT 96
--- NOTE | 2023-04-20 14:18 | PM.IMPN ---
Progress Note: A&P Assessment and Plan (1) Closed fracture of right hip: Qualifiers: Encounter type: initial encounter Qualified Code(s): S72.001A - Fracture of unspecified part of neck of right femur, initial encounter for closed fracture Code(s): S72.001A - Fracture of unspecified part of neck of right femur, initial encounter for closed fracture Status: Acute (2) Essential hypertension: Code(s): I10 - Essential (primary) hypertension Status: Acute (3) Musculoskeletal chest pain: Code(s): R07.89 - Other chest pain Status: Acute (4) Fall from bench: Code(s): W08.XXXA - Fall from other furniture, initial encounter Status: Acute (5) Eczema: Qualifiers: Eczema type: unspecified Qualified Code(s): L30.9 - Dermatitis, unspecified Code(s): L30.9 - Dermatitis, unspecified Status: Acute Plan Patient has a right displaced fracture of the proximal transcervical femur. Orthopedic surgery has been consulted. The patient is pain is managed with Dilaudid. However patient would prefer to transition to oral opiate therapy for better duration of affect. But given that the patient is NPO for anticipated surgical procedure will continue Dilaudid for now. Pt had some mention of chest pain on admission likely anxiety or musculoskeletal chest pain trop is nl in hospital Subjective Date/time seen: 04/20/23 14:18 Interval history: 3-year-old loquacious female past medical history osteoporosis, essential hypertension and multiple joint replacements who presented to the ER after having fallen off of bench [place] trying to hang a sheet over her window.? She reported that immediately when she fell she knew that she broke her hip.? She was unable to stand up and pulled herself across the floor by her finger tips to reach the phone.? She was able to call 1 of her granddaughters for assistance and then was brought in by EMS.? Patient reports the pain was 10/10 in severity with any movement or position changes.? She has intact sensation of her lower extremities besides her chronic peripheral neuropathy from prior spine surgery.? pt sustained a closed fracture of right hip awaiting to see orthopedics continue bedrest and pain control hopeful surgery soon Review of Systems Review of Systems: Headaches, some hip pain and high blood pressures today Exam Const: Other: Appears younger than stated age, thin body habitus, no acute distress HENMT: Other: Mucous membranes are tacky, no oral pharyngeal erythema, good dentition, head is normocephalic atraumatic Eyes: Other: Pupils are equal and reactive, no scleral icterus, no conjunctival pallor Neck: Other: No JVD, supple Chest: Other: No reproducible tenderness to palpation however patient does receive pain medication, no crepitus Resp: Other: Clear to auscultation bilaterally, no increased work of breathing Cardio: Other: Regular rate, regular rhythm, 2+ bilateral radial and pedal pulses, no JVD, faint heart murmur left axilla GI: Other: Soft, nontender, nondistended, positive bowel : Other: [place] catheter in place with almost 1 L urine output urine is pale yellow and clear Skin: Other: Patient has dried skin across her abdomen with white flaking Neuro: Other: Alert orient x4, speech is clear, no facial asymmetry, no localizing neurologic deficits noted during the course of conversation Extrem: Other: No clubbing, cyanosis or edema, old scars from prior bilateral knee replacements, prior left hip replacement, right lower extremity demonstrates no obvious bruising shortening or rotation, distal right lower extremity is neurovascularly intact Psych: Other: Loquacious, vivacious, pleasant and cooperative, judgment and insight intact Objective Data Vital Signs Vital Signs: Vital Signs - 24 hr 04/19/23 17:50
--- NOTE | 2023-04-20 16:23 | PM.CNOR ---
Assessment and Plan Assessment and plan (1) Closed fracture of right hip: Qualifiers: Encounter type: initial encounter Qualified Code(s): S72.001A - Fracture of unspecified part of neck of right femur, initial encounter for closed fracture Code(s): S72.001A - Fracture of unspecified part of neck of right femur, initial encounter for closed fracture Status: Acute Plan Displaced femoral neck fracture. Patient is well known to me, with recent total knee arthroplasty. She fell attempting to climb a ladder. She is very active to a fault. We discussed the proposed procedure. Risks, benefits, and alternatives discussed. Active community ambulator with a history of contralateral total hip and knee joints, is a very good candidate for total joint arthroplasty to treat the fracture. Proceed with right total hip arthroplasty. History of Present Illness HPI Consult date: 04/20/23 Chief complaint: R Hip Fracture Narrative: Patient complains of acute hip pain. Fell from standing height. Admitted through the emergency room for definitive management. No previous hip pain. Comfortable at rest. No numbness, tingling, or other associated symptoms. Review of Systems Review of Systems: Denies loss of consciousness. All systems reviewed & are unremarkable except as noted in HPI and below PMFSH Past Medical History Medical History (Updated 04/20/23 @ 04:55 by Tatiana Caballero DO) Cervical radiculopathy at C6 Eczema Essential hypertension Peripheral neuropathy Due to lumbar spine surgery Surgical History Surgical History (Updated 04/20/23 @ 04:49 by Tatiana Caballero DO) History of lumbar surgery History of total right knee replacement (~01/28/23) Presence of left artificial knee joint (04/21/18) Status post cataract extraction of both eyes with insertion of intraocular lens Status post total hip replacement, left Family History Family History Other Family history of arthritis Social History Social History (Updated 04/20/23 @ 04:47 by Tatiana Caballero DO) Social History: The patient is and lives in her own home. She is independent activities of daily living. She drinks alcohol on occasion but only in moderation. Code status: DNR/DNI (per patient request) Smoking status: Never smoker Additional smoking assessment comments: DENIES ANY FORM OF TOBACCO USE Alcohol intake: current Substance use: never Do You Feel Safe in your Home?: Yes Lack of Transportation: No Lack of Food: Never True Current Housing: I Have Housing Concerned About Future Housing: No Difficulty Paying Gas/Electric Bills: No Difficulty Paying for Meds: No Currently Unemployed: No Education: Don't Know Difficulty w/ Childcare or Family Care: No Living arrangements: alone Spiritual care concerns: No Meds Home Medications and Allergies Home Medications Medication Instructions Recorded Confirmed Type acetaminophen 500 mg tablet 1,000 mg PO Q6H PRN Pain 11/08/19 04/19/23 History (Tylenol Extra Strength) celecoxib 200 mg capsule 200 mg PO QTUTHSU 04/19/23 04/19/23 History losartan 50 mg tablet 50 mg PO DAILY 04/19/23 04/19/23 History tramadol 50 mg tablet 50 mg PO Q12H PRN Pain 04/19/23 04/19/23 History zoledronic acid 5 mg/100 mL in 5 mg IV ONCE 04/19/23 04/19/23 History mannitol 5 %-water intravenous piggybck (Reclast) oxycodone-acetaminophen 5 mg-325 1 - 2 tablet PO Q4H 04/20/23 04/20/23 History mg tablet Allergies Allergy/AdvReac Type Severity Reaction Status Date / Time No Known Allergies Allergy Verified 03/18/23 13:44 Vital Signs Vital Signs - 24 hr 04/19/23 17:50 04/19/23 19:36 04/19/23 19:51 Temperature 36.7 C Pulse Rate 62 68 77 Respiratory Rate 16 20 16 Blood Pressure 165/74 H 169/94 H Pulse Oximetry 100 100 97 Oxygen Delivery 04/19/23 20:49 04/19/23 23:
[2023-04-20 21:21] VITALS: BP 128/71; PULSE 66; RESP 18; TEMP 35.9; O2SAT 96
[2023-04-21 04:45] VITALS: BP 185/105; PULSE 71; RESP 16; TEMP 35.8; O2SAT 97
[2023-04-21] MEDS: oxyCODONE/ACETAMINOPHEN (*CRX) 5-325 MG TABLET 1 TABLET PO ×2 (05:05→08:47)
[2023-04-21 06:07] VITALS: BP 153/94; PULSE 82; O2SAT 97
[2023-04-21] MEDS: LOSARTAN POTASSIUM 50 MG TABLET PO (08:38)
[2023-04-21] MEDS: EUCERIN CREAM 120 GM JAR 1 APPLIC TOPICAL (08:39)
[2023-04-21] MEDS: HYDROmorphone HCL INJ (*CRX) 1 MG/ML SYR IV PUSH (12:09)
[2023-04-21] MEDS: oxyCODONE/ACETAMINOPHEN (*CRX) 10-325 MG TABLET 1 TAB PO ×2 (12:59→17:01)
--- NOTE | 2023-04-21 12:59 | PM.IMPN ---
Progress Note: A&P Assessment and Plan (1) Closed fracture of right hip: Qualifiers: Encounter type: initial encounter Qualified Code(s): S72.001A - Fracture of unspecified part of neck of right femur, initial encounter for closed fracture Code(s): S72.001A - Fracture of unspecified part of neck of right femur, initial encounter for closed fracture Status: Acute (2) Essential hypertension: Code(s): I10 - Essential (primary) hypertension Status: Acute (3) Musculoskeletal chest pain: Code(s): R07.89 - Other chest pain Status: Acute (4) Fall from bench: Code(s): W08.XXXA - Fall from other furniture, initial encounter Status: Acute (5) Eczema: Qualifiers: Eczema type: unspecified Qualified Code(s): L30.9 - Dermatitis, unspecified Code(s): L30.9 - Dermatitis, unspecified Status: Acute Plan Patient has a right displaced fracture of the proximal transcervical femur. Orthopedic surgery has been consulted. Continue pain control. Pt is due to have surgery tomorrow. keep npo from [place] roberto Pt had some mention of chest pain on admission likely anxiety or musculoskeletal chest pain trop is nl in hospital Subjective Date/time seen: 04/21/23 12:59 Interval history: 3-year-old loquacious female past medical history osteoporosis, essential hypertension and multiple joint replacements who presented to the ER after having fallen off of bench [place] trying to hang a sheet over her window.? She reported that immediately when she fell she knew that she broke her hip.? She was unable to stand up and pulled herself across the floor by her finger tips to reach the phone.? She was able to call 1 of her granddaughters for assistance and then was brought in by EMS.? Patient reports the pain was 10/10 in severity with any movement or position changes.? She has intact sensation of her lower extremities besides her chronic peripheral neuropathy from prior spine surgery.? pt sustained a closed fracture of right hip awaiting to see orthopedics continue bedrest and pain control hopeful surgery soon Surgery planned tomorrow- Review of Systems Review of Systems: Mild hip pains Exam Const: Other: Appears younger than stated age, thin body habitus, no acute distress HENMT: Other: Mucous membranes are tacky, no oral pharyngeal erythema, good dentition, head is normocephalic atraumatic Eyes: Other: Pupils are equal and reactive, no scleral icterus, no conjunctival pallor Neck: Other: No JVD, supple Chest: Other: No reproducible tenderness to palpation however patient does receive pain medication, no crepitus Resp: Other: Clear to auscultation bilaterally, no increased work of breathing Cardio: Other: Regular rate, regular rhythm, 2+ bilateral radial and pedal pulses, no JVD, faint heart murmur left axilla GI: Other: Soft, nontender, nondistended, positive bowel : Other: [place] catheter in place with almost 1 L urine output urine is pale yellow and clear Skin: Other: Patient has dried skin across her abdomen with white flaking Neuro: Other: Alert orient x4, speech is clear, no facial asymmetry, no localizing neurologic deficits noted during the course of conversation Extrem: Other: No clubbing, cyanosis or edema, old scars from prior bilateral knee replacements, prior left hip replacement, right lower extremity demonstrates no obvious bruising shortening or rotation, distal right lower extremity is neurovascularly intact Psych: Other: Loquacious, vivacious, pleasant and cooperative, judgment and insight intact Objective Data Vital Signs Vital Signs: Vital Signs - 24 hr 04/20/23 14:00 04/20/23 21:21 04/21/23 04:45 Temperature 35.8 C L 35.9 C L 35.8 C L Pulse Rate 68 66 71 Respiratory Rate 18 18 16 Blood Pressure 182/88 H 128/71 185/105 H Pul
[2023-04-21 14:00] VITALS: BP 140/84; PULSE 81; RESP 18; TEMP 36.3; O2SAT 96
--- NOTE | 2023-04-21 14:57 | PM.IMPN ---
Subjective Date/time seen: 04/21/23 14:57 Objective Data Vital Signs Vital Signs: Vital Signs - 24 hr 04/20/23 21:21 04/21/23 04:45 04/21/23 06:07 Temperature 35.9 C L 35.8 C L Pulse Rate 66 71 82 Respiratory Rate 18 16 Blood Pressure 128/71 185/105 H 153/94 H Pulse Oximetry 96 97 97 Oxygen Delivery 04/21/23 08:40 04/21/23 14:00 Temperature 36.3 C L Pulse Rate 81 Respiratory Rate 18 Blood Pressure 140/84 Pulse Oximetry 96 Oxygen Delivery Room Air Intake/Output Intake/Output: Intake & Output 04/18/23 04/19/23 04/20/23 04/21/23 23:59 23:59 23:59 23:59 Intake Total 1000 240 700 Output Total 1750 500 Balance 1000 -1510 200 Meds/Results Medications: Active Medications Generic Name Dose Route Start Last Admin Trade Name Freq PRN Reason Stop Dose Admin Acetaminophen 1,000 mg 04/20/23 04:24 04/20/23 07:00 Acetaminophen 500 Mg Tablet PO 1,000 mg Q6H PRN Administration Pain1-3 or fever Sodium Chloride 37.7 ml/ 0 ml 04/22/23 06:00 Morphine Sulfate 2 mg/ INFILTRATE 04/22/23 06:01 Ropivacaine 200 mg/ Ketorolac ONCE ONE Tromethamine 15 mg/ Epinephrine HCl 0.3 mg Hydralazine HCl 10 mg 04/20/23 04:22 Hydralazine Hcl 20 Mg/Ml Vial IV PUSH Q4H PRN SBP greater than 160 Hydromorphone HCl 1 mg 04/19/23 20:31 04/21/23 12:09 Hydromorphone Hcl Inj (*Crx) 1 Mg/Ml Syr IV PUSH 1 mg Q3H PRN Administration Pain Rated 7-10 Losartan Potassium 50 mg 04/22/23 18:00 Losartan Potassium 50 Mg Tablet PO QPM ANGELO Multi-Ingred Cream/Lotion/Oil/Oint 1 applic 04/20/23 09:00 04/21/23 08:39 Eucerin Cream 120 Gm Jar TOPICAL 1 applic DAILY ANGELO Administration Ondansetron HCl 4 mg 04/19/23 20:36 Ondansetron Inj 4 Mg/2 Ml Vial IV PUSH Q4H PRN Nausea Oxycodone/Acetaminophen 1 tablet 04/20/23 04:24 04/21/23 08:47 Oxycodone/Acetaminophen (*Crx) 5-325 Mg Tablet PO 1 tablet Q4H PRN Administration Pain 4-6 Oxycodone/Acetaminophen 1 tab 04/21/23 12:32 04/21/23 12:59 Oxycodone/Acetaminophen (*Crx) 10-325 Mg Tablet PO 1 tab Q4H PRN Administration Pain Rated 7-10 Radiology Results: ITS Impressions Chest X-Ray 04/19/23 18:44 IMPRESSION: 1. No acute cardiopulmonary disease. Hip/Pelvis X-Ray 04/19/23 18:45 IMPRESSION: 1. Displaced transcervical fracture of the proximal right femur. Knee X-Ray 04/19/23 18:50 IMPRESSION: 1. Right total knee arthroplasty with no acute osseous abnormality.
[2023-04-21] MEDS: diphenhydrAMINE HCl CAP 25 MG CAPSULE PO (16:54)
[2023-04-21 22:05] VITALS: BP 162/92; PULSE 81; RESP 18; TEMP 37; O2SAT 95
[2023-04-22] VITALS (12 sets, daily range): BP systolic 131–173; BP diastolic 69–85; PULSE 76–87; RESP 14–20; TEMP 36.6–37.3; O2SAT 93–100
[2023-04-22] MEDS: oxyCODONE/ACETAMINOPHEN (*CRX) 10-325 MG TABLET 1 TAB PO ×2 (01:11→05:20)
[2023-04-22] MEDS: diphenhydrAMINE HCl CAP 25 MG CAPSULE PO ×3 (03:24→17:32)
[2023-04-22] MEDS: HYDROmorphone HCL INJ (*CRX) 1 MG/ML SYR IV PUSH ×2 (04:38→10:17)
--- NOTE | 2023-04-22 07:20 | WPDHPUPDATE1 ---
History and Physical Update Update Date/Time: 04/22/23 07:20 History and Physical has been reviewed, including an updated exam of the patient. There are NO changes in the patient's condition. Risks, benefits, and alternatives have been discussed and questions answered. Patient agrees to proceed with procedure.
[2023-04-22] MEDS: EUCERIN CREAM 120 GM JAR 1 APPLIC TOPICAL (09:11)
--- NOTE | 2023-04-22 12:25 | PM.IMPN ---
Progress Note: A&P Assessment and Plan (1) Closed fracture of right hip: Qualifiers: Encounter type: initial encounter Qualified Code(s): S72.001A - Fracture of unspecified part of neck of right femur, initial encounter for closed fracture Code(s): S72.001A - Fracture of unspecified part of neck of right femur, initial encounter for closed fracture Status: Acute Assessment and Plan: Patient has a right displaced fracture of the proximal transcervical femur. Orthopedic surgery has been consulted. Continue pain control. Pt is due to have surgery today at 2 pm Pt had some mention of chest pain on admission likely anxiety or musculoskeletal chest pain trop is nl in hospital, no further chest pain noted since admission (2) Essential hypertension: Code(s): I10 - Essential (primary) hypertension Status: Acute (3) Musculoskeletal chest pain: Code(s): R07.89 - Other chest pain Status: Acute (4) Fall from bench: Code(s): W08.XXXA - Fall from other furniture, initial encounter Status: Acute (5) Eczema: Qualifiers: Eczema type: unspecified Qualified Code(s): L30.9 - Dermatitis, unspecified Code(s): L30.9 - Dermatitis, unspecified Status: Acute Plan Subjective Date/time seen: 04/22/23 12:25 Interval history: 83-year-old female past medical history osteoporosis, essential hypertension and multiple joint replacements who presented to the ER after having fallen off of bench [place] trying to hang a sheet over her window.? She reported that immediately when she fell she knew that she broke her hip.? She was unable to stand up and pulled herself across the floor by her finger tips to reach the phone.? She was able to call 1 of her granddaughters for assistance and then was brought in by EMS.? Patient reports the pain was 10/10 in severity with any movement or position changes.? She has intact sensation of her lower extremities besides her chronic peripheral neuropathy from prior spine surgery.? pt sustained a closed fracture of right hip awaiting to see orthopedics continue bedrest and pain control hopeful surgery soon Surgery planned tomorrow- at [address] Alvarez Pt seen and examined stable or surgery Review of Systems Review of Systems: Mild hip pains Exam Const: Other: Appears younger than stated age, thin body habitus, no acute distress HENMT: Other: Mucous membranes are tacky, no oral pharyngeal erythema, good dentition, head is normocephalic atraumatic Eyes: Other: Pupils are equal and reactive, no scleral icterus, no conjunctival pallor Neck: Other: No JVD, supple Chest: Other: No reproducible tenderness to palpation however patient does receive pain medication, no crepitus Resp: Other: Clear to auscultation bilaterally, no increased work of breathing Cardio: Other: Regular rate, regular rhythm, 2+ bilateral radial and pedal pulses, no JVD, faint heart murmur left axilla GI: Other: Soft, nontender, nondistended, positive bowel : Other: [place] catheter in place with almost 1 L urine output urine is pale yellow and clear Neuro: Other: Alert orient x4, speech is clear, no facial asymmetry, no localizing neurologic deficits noted during the course of conversation Extrem: Other: No clubbing, cyanosis or edema, old scars from prior bilateral knee replacements, prior left hip replacement, right lower extremity demonstrates no obvious bruising shortening or rotation, distal right lower extremity is neurovascularly intact Psych: Other: Loquacious, vivacious, pleasant and cooperative, judgment and insight intact Objective Data Vital Signs Vital Signs: Vital Signs - 24 hr 04/21/23 14:00 04/21/23 22:05 04/22/23 05:15 Temperature 36.3 C L 37.0 C 37.1 C Pulse Rate 81 81 76 Respiratory Rate 18 18 20 Blood Pressure 140
--- NOTE | 2023-04-22 12:50 | PC.NURSE ---
To OR via bed.
[2023-04-22] MEDS: KETOROLAC 15 MG/ML VIAL (*BKC) IV PUSH (13:20)
[2023-04-22] MEDS: TRANEXAMIC ACID 1,000MG/ISO100 1,000 MG/100 ML BAG 200 MG IVPB (13:20)
[2023-04-22] MEDS: ceFAZolin 2 GM/D5W 50 ML 2 GM/50 ML BAG IVPB (13:36)
--- NOTE | 2023-04-22 13:39 | WPDANESEPPF ---
Anes - Initial Pre Proc Eval Procedure: Operation Date: 04/22/23 14:00 Proposed Procedures p Right Total Hip Arthroplasty(Right) - Tyrell Alvarez MD Date/Time: 04/22/23 13:39 Surgeon: Tatiana Caballero DO Pre Op Diagnosis: R Hip Fracture Patient Data Age: 83 Gender: F Height: 1.57 m Weight: 50.9 kg Last Vital Signs Temp 37.1 C 04/22/23 13:11 Pulse 82 04/22/23 13:11 Resp 16 04/22/23 13:11 BP 169/83 H 04/22/23 13:11 Pulse Ox 100 04/22/23 13:11 O2 Del Method Room Air 04/22/23 13:11 Allergies Allergy/AdvReac Type Severity Reaction Status Date / Time No Known Allergies Allergy Verified 03/18/23 13:44 Home Medications Medication Instructions Recorded Confirmed Type acetaminophen 500 mg tablet 1,000 mg PO Q6H PRN Pain 11/08/19 04/19/23 History (Tylenol Extra Strength) celecoxib 200 mg capsule 200 mg PO QTUTHSU 04/19/23 04/19/23 History losartan 50 mg tablet 50 mg PO DAILY 04/19/23 04/19/23 History tramadol 50 mg tablet 50 mg PO Q12H PRN Pain 04/19/23 04/19/23 History zoledronic acid 5 mg/100 mL in 5 mg IV ONCE 04/19/23 04/19/23 History mannitol 5 %-water intravenous piggybck (Reclast) oxycodone-acetaminophen 5 mg-325 1 - 2 tablet PO Q4H 04/20/23 04/20/23 History mg tablet Patient hx anesthesia problems: none Family hx anesthesia problems: none Results Review: All pre-operative results and documents have been reviewed as part of the pre-operative evaluation. [facility] Past Medical History Medical History Cervical radiculopathy at C6 Eczema Essential hypertension Peripheral neuropathy Due to lumbar spine surgery Surgical History Surgical History History of lumbar surgery History of total right knee replacement (~01/28/23) Presence of left artificial knee joint (04/21/18) Status post cataract extraction of both eyes with insertion of intraocular lens Status post total hip replacement, left Family History Family History Other Family history of arthritis Social History Social History Social History: The patient is and lives in her own home. She is independent activities of daily living. She drinks alcohol on occasion but only in moderation. Code status: DNR/DNI (per patient request) Smoking status: Never smoker Additional smoking assessment comments: DENIES ANY FORM OF TOBACCO USE Alcohol intake: current Substance use: never Do You Feel Safe in your Home?: Yes Lack of Transportation: No Lack of Food: Never True Current Housing: I Have Housing Concerned About Future Housing: No Difficulty Paying Gas/Electric Bills: No Difficulty Paying for Meds: No Currently Unemployed: No Education: Don't Know Difficulty w/ Childcare or Family Care: No Living arrangements: alone Spiritual care concerns: No Anes - Eval Final PreProcedure Day of Procedure 04/22/23 13:39 Patient weight: normal Heart: regular rate and rhythm Lungs: clear to auscultation Airway: Mallampati scale class II Neurological: alert and oriented Last oral intake: >/= 8 hours ASA classification: III Emergent: no Anesthetic plan: proceed Anesthesia type and monitoring: general ETT and standard monitoring Results Review: All pre-operative results and documents have been reviewed as part of the pre-operative evaluation. DNR status discussed in depth with pt and daughter. Pt adamantly refuses heroic measures to resuscitate her in the event she shall need. No central line, no reintubation, no cpr. She desires anesthetic procedures to provide a safe anesthetic for the surgery but does not want resuscitation if course goes poorly post op. I will discuss with Dr. Alvarez. Informed Consent: The patient's anesthetic
[2023-04-22] MEDS: LACTATED RINGERS 1,000 ML 30 ML IV CONT ×2 (15:20)
--- NOTE | 2023-04-22 15:28 | W.PM.PROC2 ---
Procedure Note - Detailed Date of Procedure 04/22/23 Pre-op Diagnosis Right Hip displaced femoral neck fracture Post-op Diagnosis Same Procedure Performed Right Total Hip Arthroplasty Surgeon Tyrell Alvarez MD Clinical Data Analyst Louann Saba PA-C Anesthesia General Description of Procedure The patient was given preoperative antibiotics. A general anesthetic was administered. The patient was carefully placed in the lateral decubitus position on the PEG board. The shoulders and hips were carefully positioned for component and leg length positioning reference. The hip was prepped and draped in the usual sterile fashion. A longitudinal incision was created over the posterior aspect of the greater trochanter. Careful dissection was brought down through the deep fascia with electrocautery. A minimally invasive optimized posterior approach to the hip was performed. The short external rotators and capsule were taken down in an L-shaped capsulotomy. The tissue was tagged for later repair using number 2 high strength suture. The femoral neck was measured and taken in situ. The femoral head was removed. The acetabulum was carefully exposed. The inferior capsule was released. The labrum was resected. The acetabulum was sequentially reamed to the intended cup size. The cup was impacted into position with excellent press-fit. Typical anatomic landmarks, including the bony contact points as well as the inferior transverse acetabular ligament were used to confirm cup positioning with preoperative templating. Attention was turned to the femur, which was carefully exposed. The hip was reamed and then broached sequentially. Excellent press-fit was obtained with the broach. The hip was trialed. Measurements were utilized, including the lesser trochanter as well as the center of the femoral head and the tip of the trochanter, and excellent assessment of the offset and leg lengths were confirmed. The real component was impacted into position. Trialing confirmed appropriate leg length and offset with soft tissue balancing as well apparent feel of the leg, both at the knee and the heel. Soft tissues were assessed using the the iliotibial band. Reduction of the posterior capsule and external rotators were also used as a secondary assessment. The hip was copiously irrigated with pulsatile lavage antibiotic solution periodically throughout the procedure. The real components were then assembled and reduced. The hip was stable throughout typical maneuvers, including extension, external rotation to 70 degrees, the position of sleep as well as flexion to 90 degrees with internal rotation past 45 degrees. The shake test confirmed stability without impingement. Osteophytes were removed as necessary. The short external rotators and capsule were repaired back to the posterior trochanter through drill holes. The deep fascia was repaired with running number 2 Quill suture, followed by 0 Stratafix suture and 2-0 Stratafix suture in the dermis. Steri-Strips were placed on the skin, followed by a sterile silver occlusive dressing. There were no complications. Meticulous hemostasis was maintained with the AquaMantys device. The patient was brought to the recovery room in stable condition. There were no complications. Implants The Accolade II hip stem, 132 degree size 5 , was utilized with excellent press-fit. The 48 mm Trident II acetabular component was impacted with excellent press-fit stability. The -2.5, 36 mm Biolox ceramic femoral head was utilized. Estimated Blood Loss 200 Drains No Packing No Pathology None sent Complications No immediate complications Condition Stable Disposition PACU [facility] Billing Surgery - Charge Forward: Surgery Billing
--- NOTE | 2023-04-22 16:40 | PC.NURSE ---
Back from OR via bed.
[2023-04-22 16:59] LABS: Hematocrit 38.1 % (37.0-47.0); Hemoglobin 12.4 g/dL (12.0-15.0)
[2023-04-22] MEDS: SENNA/DOCUSATE SODIUM TABLET 2 TAB PO (17:30)
[2023-04-22] MEDS: ASPIRIN 81 MG ENTERIC TABLET PO (17:30)
[2023-04-22] MEDS: SODIUM CHLORIDE 0.9% IV 1,000 ML 125 ML IV CONT (17:32)
[2023-04-22] MEDS: ceFAZolin 1 GM/NS 50 ML 1 GM/50 ML BAG IVPB (21:20)
[2023-04-22] MEDS: LOSARTAN POTASSIUM 50 MG TABLET PO (21:20)
[2023-04-23] VITALS (8 sets, daily range): BP systolic 98–180; BP diastolic 72–95; PULSE 73–109; RESP 16–20; TEMP 36.1–37.8; O2SAT 94–100
[2023-04-23] MEDS: oxyCODONE HCL (*CRX) 5 MG TAB IR 10 MG PO ×2 (01:31→08:37)
[2023-04-23] MEDS: hydrALAZINE HCL 20 MG/ML VIAL 10 MG IV PUSH (04:39)
[2023-04-23] MEDS: SODIUM CHLORIDE 0.9% IV 1,000 ML 125 ML IV CONT (05:24)
[2023-04-23] MEDS: ceFAZolin 1 GM/NS 50 ML 1 GM/50 ML BAG IVPB ×2 (05:25→13:44)
[2023-04-23 06:05] LABS: Basophils Percent Auto 0.2 % (0.2-1.2); Eosinophils Percent Auto 0.3 % (0-4.4); Hematocrit 34.6 % (37.0-47.0); Hemoglobin 11.3 g/dL (12.0-15.0); Immature Granulocyte Absolute 0.04 K/mm3 (0.00-0.031); Immature Granulocyte Percent A 0.4 % (0-0.5); Lymphocytes Absolute Auto 0.24 K/mm3 (0.9-3.2); Lymphocytes Percent Auto 2.4 % (18.3-44.2); Mean Corpuscular HGB Conc 32.7 g/dl (32-36); Mean Corpuscular Hemoglobin 30.7 pg (26-34); Mean Platelet Volume 9.4 fl (7.4-10.4); Monocytes Absolute Auto 0.8 K/mm3 (0.1-0.6); Monocytes Percent Auto 8.1 % (2.6-8.5); Neutrophils Absolute Auto 8.8 K/mm3 (1.3-6.7); Neutrophils Percent Auto 88.6 % (45.5-73.1); Platelet Count Result 164 k/mm3 (150-375); Red Blood Count 3.68 M/mm3 (4.2-5.4); Red Cell Distribution Width 12.7 % (11.5-14.5)
[2023-04-23 06:16] LABS: Anion Gap 6 mmol/L (8-16); Blood Urea Nitrogen 16 mg/dL (7-17); Carbon Dioxide 24 mmol/L (22-30); Chloride 100 mmol/L (98-107); Estimated CRCL calculation 34 ml/min; Estimated Glomerular Filt Rate 60; Glucose 116 mg/dL (65-110); Potassium 3.8 mmol/L (3.4-5.0); Sodium 130 mmol/L (137-145)
--- NOTE | 2023-04-23 08:31 | PCPTNOTE ---
Attempted PT eval this morning, pt is covering her face and reports she is in too much pain to move, I informed pt I will be back after she gets her next dose of pain medication, will continue to attempt
[2023-04-23] MEDS: ACETAMINOPHEN 325 MG TABLET 650 MG PO ×2 (08:38→17:09)
[2023-04-23] MEDS: polyethylene glycoL 3350 17 GM POWD.PACK PO (08:39)
[2023-04-23] MEDS: SENNA/DOCUSATE SODIUM TABLET 2 TAB PO ×2 (08:40→17:09)
[2023-04-23] MEDS: ASPIRIN 81 MG ENTERIC TABLET PO ×2 (08:40→17:09)
[2023-04-23] MEDS: EUCERIN CREAM 120 GM JAR 1 APPLIC TOPICAL (08:40)
--- NOTE | 2023-04-23 08:58 | PM.IMPN ---
Progress Note: A&P Assessment and Plan (1) Closed fracture of right hip: Qualifiers: Encounter type: initial encounter Qualified Code(s): S72.001A - Fracture of unspecified part of neck of right femur, initial encounter for closed fracture Code(s): S72.001A - Fracture of unspecified part of neck of right femur, initial encounter for closed fracture Status: Acute (2) Essential hypertension: Code(s): I10 - Essential (primary) hypertension Status: Acute (3) Musculoskeletal chest pain: Code(s): R07.89 - Other chest pain Status: Acute (4) Fall from bench: Code(s): W08.XXXA - Fall from other furniture, initial encounter Status: Acute (5) Eczema: Qualifiers: Eczema type: unspecified Qualified Code(s): L30.9 - Dermatitis, unspecified Code(s): L30.9 - Dermatitis, unspecified Status: Acute Plan The patient is an 83-year-old female with a past medical history significant for hypertension, eczema, peripheral neuropathy, cervical radiculopathy at C6, and prior lumbar spine surgery. She presents following a fall from a two-foot height onto her right side, resulting in a displaced transcervical right hip fracture. She reports feeling a popping sensation in her right hip during the fall but denies any head injury or loss of consciousness. She has a history of a knee replacement in January 2023. The emergency department evaluation confirmed the hip fracture, and orthopedics was consulted. The patient underwent a right hip total arthroplasty on April 22, 2023. She is on aspirin 81 mg twice daily for deep vein thrombosis prophylaxis, as recommended by orthopedics. Currently, she is postoperative day 1, with stable vitals and a mild fever in the morning. Labs indicate mild hyponatremia. The patient is scheduled for postoperative physical therapy and rehabilitation. DC to rehabilitation when accepted care coordination on board Subjective Date/time seen: 04/23/23 08:58 Interval history: Feels well work with therapy no chest pain or shortness of breath pain controlled Review of Systems Review of Systems: All systems reviewed & are unremarkable except as noted in HPI and below Exam Narrative: GENERAL: The patient is well developed, not in acute distress HEENT: Nonicteric sclerae, PERRLA, EOMI. Oropharynx clear. Moist mucous membranes. Conjunctivae appear well perfused. CHEST: Chest wall is nontender. HEART: Regular rate and rhythm without murmur, rubs, or gallops LUNGS: Clear to auscultation bilaterally. no respiratory distress ABDOMEN: Soft, positive bowel sounds, non-tender, no organomegaly. SKIN: No rash, no excessive bruising, petechiae, or purpura. NEUROLOGIC: Cranial nerves II-XII intact, alert and oriented x 3, no gross motor deficits EXTREMITIES: no edema, cyanosis or clubbing Objective Data Vital Signs Vital Signs: Vital Signs - 24 hr 04/22/23 09:10 04/22/23 13:11 04/22/23 15:20 Temperature 98.7 F 98.6 F Pulse Rate 82 79 Respiratory Rate 16 14 Blood Pressure 169/83 H 173/70 H Pulse Oximetry 100 100 Oxygen Delivery Room Air Room Air Simple Face Mask Oxygen Flow Rate 6 04/22/23 15:35 04/22/23 15:45 04/22/23 15:50 Temperature Pulse Rate 87 83 Respiratory Rate 18 16 Blood Pressure 153/76 H 160/74 H Pulse Oximetry 100 93 Oxygen Delivery Simple Face Mask Room Air Room Air Oxygen Flow Rate 6 04/22/23 16:05 04/22/23 16:20 04/22/23 16:40 Temperature 98.4 F Pulse Rate 77 85 81 Respiratory Rate 18 18 16 Blood Pressure 138/80 135/69 134/71 Pulse Oximetry 96 95 93 Oxygen Delivery Nasal Cannula Nasal Cannula Oxygen Flow Rate 2 2 04/22/23 16:55 04/22/23 17:25 04/22/23 18:14 Temperature 99.2 F 98.4 F 97.9 F Pulse Rate 77 76 79 Respiratory Rate 16 16 18 Blood Pressure 145/70 H 138/76 131/80 Pulse Oximetry 98 100 94 Oxygen Delivery Oxygen Flow Rate 04/22/23 20:15 04/23/23 02:19 04/23/23 0
--- NOTE | 2023-04-23 16:30 | PM.PNORT ---
Progress Note: A&P Assessment and Plan (1) Orthopedic aftercare for joint replacement: Code(s): Z47.1 - Aftercare following joint replacement surgery Status: Acute (2) Status post total hip replacement, right: Code(s): Z96.641 - Presence of right artificial hip joint Status: Acute Plan Pain well controlled. Mobilizing well. Afebrile. dressing intact. Moderate swelling. Neurovascular status intact. No distal edema. Radiographs show satisfactory right total hip arthroplasty. Postoperative day 1 status post right total hip arthroplasty for fracture. Doing well. Appropriate progress. Appropriate discharge to rehab. Approximately 1 - 2 weeks anticipated. Good rehab potential. Ok to discharge tomorrow. Subjective Subjective Date/Time Seen: 04/23/23 16:30 Objective Data Vital Signs Vital Signs: Vital Signs - 24 hr 04/22/23 16:40 04/22/23 16:55 04/22/23 17:25 Temperature 36.9 C 37.3 C 36.9 C Pulse Rate 81 77 76 Respiratory Rate 16 16 16 Blood Pressure 134/71 145/70 H 138/76 Pulse Oximetry 93 98 100 Oxygen Delivery 04/22/23 18:14 04/22/23 20:15 04/23/23 02:19 Temperature 36.6 C 37.3 C Pulse Rate 79 78 Respiratory Rate 18 18 Blood Pressure 131/80 154/85 H 158/82 H Pulse Oximetry 94 96 Oxygen Delivery 04/23/23 00:55 04/23/23 04:20 04/23/23 05:33 Temperature 36.6 C 36.1 C L Pulse Rate 86 109 H Respiratory Rate 20 16 Blood Pressure 180/80 H 170/95 H 150/78 H Pulse Oximetry 95 95 Oxygen Delivery 04/23/23 08:00 04/23/23 09:39 04/23/23 08:40 Temperature 37.8 C H Pulse Rate 107 H Respiratory Rate 18 Blood Pressure 147/77 H Pulse Oximetry 94 Oxygen Delivery Room Air Room Air 04/23/23 12:00 04/23/23 16:00 Temperature 36.8 C 36.2 C L Pulse Rate 73 83 Respiratory Rate 18 18 Blood Pressure 98/80 L 134/72 Pulse Oximetry 98 100 Oxygen Delivery Intake/Output Intake/Output: Intake & Output 04/20/23 04/21/23 04/22/23 04/23/23 23:59 23:59 23:59 23:59 Intake Total 240 3567 022 1224 Output Total 1750 1400 350 825 [facility]370 [phone] Meds/Results Medications: Active Medications Generic Name Dose Route Start Last Admin Trade Name Freq PRN Reason Stop Dose Admin Acetaminophen 650 mg 04/22/23 16:29 04/23/23 08:38 Acetaminophen 325 Mg Tablet PO 650 mg Q6H PRN Administration Mild Pain (1-3) or Fever Aspirin 81 mg 04/22/23 17:00 04/23/23 08:40 Aspirin 81 Mg Enteric Tablet PO 81 mg BID ANGELO Administration Diphenhydramine HCl 25 mg 04/21/23 16:35 04/22/23 17:32 Diphenhydramine Hcl Cap 25 Mg Capsule PO 25 mg TID PRN Administration Itching Hydralazine HCl 10 mg 04/20/23 04:22 04/23/23 04:39 Hydralazine Hcl 20 Mg/Ml Vial IV PUSH 10 mg Q4H PRN Administration SBP greater than 160 Hydromorphone HCl 1 mg 04/19/23 20:31 04/22/23 10:17 Hydromorphone Hcl Inj (*Crx) 1 Mg/Ml Syr IV PUSH 1 mg Q3H PRN Administration Pain Rated 7-10 Losartan Potassium 50 mg 04/22/23 18:00 04/22/23 21:20 Losartan Potassium 50 Mg Tablet PO 50 mg QPM ANGELO Administration Multi-Ingred Cream/Lotion/Oil/Oint 1 applic 04/20/23 09:00 04/23/23 08:40 Eucerin Cream 120 Gm Jar TOPICAL 1 applic DAILY ANGELO Administration Naloxone HCl 0.1 mg 04/22/23 16:29 Naloxone Hcl 0.4 Mg/Ml Vial IV PUSH Q2M PRN Opiate Reversal Ondansetron HCl 4 mg 04/19/23 20:36 Ondansetron Inj 4 Mg/2 Ml Vial IV PUSH Q4H PRN Nausea Oxycodone HCl 10 mg 04/22/23 16:29 04/23/23 08:37 Oxycodone Hcl (*Crx) 5 Mg Tab Ir PO 10 mg Q4H PRN Administration Pain Rated 7-10 Oxycodone HCl 5 mg 04/22/23 16:29 Oxycodone Hcl (*Crx) 5 Mg Tab Ir PO Q4H PRN Pain Rated 4-6 Polyethylene Glycol 17 gm 04/23/23 09:00 04/23/23 08:39 Polyethylene Glycol 3350 17 Gm Powd.Pack PO 17 gm QAM ANGELO Administration Senna/Docusate Sodium 2 tab 04/22/23 1
[2023-04-23] MEDS: LOSARTAN POTASSIUM 50 MG TABLET PO (20:53)
[2023-04-24 06:00] VITALS: BP 182/85; PULSE 89; RESP 14; TEMP 36.6; O2SAT 99
[2023-04-24] MEDS: hydrALAZINE HCL 20 MG/ML VIAL 10 MG IV PUSH (06:03)
[2023-04-24 06:15] LABS: Basophils Percent Auto 0.3 % (0.2-1.2); Eosinophils Absolute Auto 0.1 K/mm3 (0-0.3); Eosinophils Percent Auto 1.4 % (0-4.4); Hematocrit 37.2 % (37.0-47.0); Hemoglobin 11.9 g/dL (12.0-15.0); Immature Granulocyte Absolute 0.05 K/mm3 (0.00-0.031); Immature Granulocyte Percent A 0.6 % (0-0.5); Lymphocytes Absolute Auto 0.31 K/mm3 (0.9-3.2); Lymphocytes Percent Auto 3.5 % (18.3-44.2); Mean Corpuscular Hemoglobin 30.4 pg (26-34); Mean Corpuscular Volume 95.1 fl (80-100); Mean Platelet Volume 9.5 fl (7.4-10.4); Monocytes Absolute Auto 0.6 K/mm3 (0.1-0.6); Monocytes Percent Auto 7.2 % (2.6-8.5); Neutrophils Absolute Auto 7.7 K/mm3 (1.3-6.7); Platelet Count Result 208 k/mm3 (150-375); Red Blood Count 3.91 M/mm3 (4.2-5.4); Red Cell Distribution Width 12.7 % (11.5-14.5); White Blood Count 8.8 K/mm3 (4.5-10.0)
[2023-04-24 06:32] LABS: Alanine Aminotransferase 18 U/L (6-35); Albumin Level 3.5 g/dL (3.5-5.1); Alkaline Phosphatase 101 U/L (38-126); Anion Gap 9 mmol/L (8-16); Aspartate Amino Transferase 40 U/L (14-36); Bilirubin,Total 0.9 mg/dL (0.2-1.3); Blood Urea Nitrogen 15 mg/dL (7-17); Calcium 8.5 mg/dL (8.4-10.2); Carbon Dioxide 25 mmol/L (22-30); Chloride 99 mmol/L (98-107); Estimated CRCL calculation 43 ml/min; Estimated Glomerular Filt Rate > 60; Glucose 114 mg/dL (65-110); Potassium 3.4 mmol/L (3.4-5.0); Sodium 133 mmol/L (137-145)
[2023-04-24 06:42] VITALS: BP 144/71
[2023-04-24] MEDS: ACETAMINOPHEN 325 MG TABLET 650 MG PO ×2 (06:45→23:14)
[2023-04-24] MEDS: SENNA/DOCUSATE SODIUM TABLET 2 TAB PO ×2 (08:54→16:53)
[2023-04-24] MEDS: polyethylene glycoL 3350 17 GM POWD.PACK PO (08:54)
[2023-04-24] MEDS: ASPIRIN 81 MG ENTERIC TABLET PO ×2 (08:54→16:53)
[2023-04-24] MEDS: EUCERIN CREAM 120 GM JAR 1 APPLIC TOPICAL (08:55)
[2023-04-24] MEDS: oxyCODONE HCL (*CRX) 5 MG TAB IR PO ×2 (09:03→16:54)
--- NOTE | 2023-04-24 11:58 | PM.IMPN ---
Progress Note: A&P Assessment and Plan (1) Closed fracture of right hip: Qualifiers: Encounter type: initial encounter Qualified Code(s): S72.001A - Fracture of unspecified part of neck of right femur, initial encounter for closed fracture Code(s): S72.001A - Fracture of unspecified part of neck of right femur, initial encounter for closed fracture Status: Acute (2) Essential hypertension: Code(s): I10 - Essential (primary) hypertension Status: Acute (3) Musculoskeletal chest pain: Code(s): R07.89 - Other chest pain Status: Acute (4) Fall from bench: Code(s): W08.XXXA - Fall from other furniture, initial encounter Status: Acute (5) Eczema: Qualifiers: Eczema type: unspecified Qualified Code(s): L30.9 - Dermatitis, unspecified Code(s): L30.9 - Dermatitis, unspecified Status: Acute Plan The patient is an 83-year-old female with a past medical history significant for hypertension, eczema, peripheral neuropathy, cervical radiculopathy at C6, and prior lumbar spine surgery. She presents following a fall from a two-foot height onto her right side, resulting in a displaced transcervical right hip fracture. She reports feeling a popping sensation in her right hip during the fall but denies any head injury or loss of consciousness. She has a history of a knee replacement in January 2023. The emergency department evaluation confirmed the hip fracture, and orthopedics was consulted. The patient underwent a right hip total arthroplasty on April 22, 2023. She is on aspirin 81 mg twice daily for deep vein thrombosis prophylaxis, as recommended by orthopedics. Currently, she is postoperative, with stable vitals and a mild fever postoperative due to has resolved. Labs indicate mild hyponatremia. The patient is scheduled for postoperative physical therapy and rehabilitation. DC to rehabilitation when accepted care coordination on board Hypertension back on losartan IV hydralazine p.r.n. intermittent hypertension could be related to pain and distress. Will continue to monitor. IV hydralazine p.r.n.. Subjective Date/time seen: 04/24/23 11:58 Interval history: Overnight she had increased pain reports being constipated. Blood pressure was elevated earlier and received IV hydralazine. Plan to go [facility] when off IV meds for at least 24 hours Review of Systems Review of Systems: All systems reviewed & are unremarkable except as noted in HPI and below Exam Narrative: GENERAL: The patient is well developed, not in acute distress HEENT: Nonicteric sclerae, PERRLA, EOMI. Oropharynx clear. Moist mucous membranes. Conjunctivae appear well perfused. CHEST: Chest wall is nontender. HEART: Regular rate and rhythm without murmur, rubs, or gallops LUNGS: Clear to auscultation bilaterally. no respiratory distress ABDOMEN: Soft, positive bowel sounds, non-tender, no organomegaly. SKIN: No rash, no excessive bruising, petechiae, or purpura. NEUROLOGIC: Cranial nerves II-XII intact, alert and oriented x 3, no gross motor deficits EXTREMITIES: no edema, cyanosis or clubbing Objective Data Vital Signs Vital Signs: Vital Signs - 24 hr 04/23/23 12:00 04/23/23 16:00 04/23/23 22:00 Temperature 98.3 F 97.2 F L 97.9 F Pulse Rate 73 83 82 Respiratory Rate 18 18 16 Blood Pressure 98/80 L 134/72 166/88 H Pulse Oximetry 98 100 99 Oxygen Delivery 04/24/23 06:00 04/24/23 06:42 04/24/23 08:00 Temperature 97.9 F Pulse Rate 89 Respiratory Rate 14 Blood Pressure 182/85 H 144/71 H Pulse Oximetry 99 Oxygen Delivery Room Air Intake/Output Intake/Output: Intake & Output 04/21/23 04/22/23 04/23/23 04/24/23 23:59 23:59 23:59 23:59 Intake Total 2175 760 0597 270 Output Total 1400 350 825 Balance -284 559 8961 270 Meds/Results Medications: Active Medications Generic Name Dose Route Start Last Admin Trade Name Freq PRN Reason Stop Dose Adm
[2023-04-24 14:00] VITALS: BP 144/88; PULSE 96; RESP 18; TEMP 36.3; O2SAT 100
[2023-04-24] MEDS: LOSARTAN POTASSIUM 50 MG TABLET PO (16:54)
[2023-04-24 20:00] VITALS: PULSE 90; RESP 16; O2SAT 100
[2023-04-24 22:00] VITALS: BP 125/52; PULSE 91; RESP 16; TEMP 36.8; O2SAT 100
[2023-04-25] MEDS: ACETAMINOPHEN 325 MG TABLET 650 MG PO (05:15)
[2023-04-25 05:20] VITALS: BP 129/87; PULSE 70; RESP 16; TEMP 36.4; O2SAT 98
[2023-04-25 06:22] LABS: Basophils Percent Auto 0.5 % (0.2-1.2); Eosinophils Absolute Auto 0.3 K/mm3 (0-0.3); Eosinophils Percent Auto 5.4 % (0-4.4); Hematocrit 29.8 % (37.0-47.0); Hemoglobin 9.5 g/dL (12.0-15.0); Immature Granulocyte Absolute 0.02 K/mm3 (0.00-0.031); Immature Granulocyte Percent A 0.4 % (0-0.5); Lymphocytes Absolute Auto 0.37 K/mm3 (0.9-3.2); Lymphocytes Percent Auto 6.7 % (18.3-44.2); Mean Corpuscular HGB Conc 31.9 g/dl (32-36); Mean Corpuscular Hemoglobin 30.6 pg (26-34); Mean Corpuscular Volume 96.1 fl (80-100); Mean Platelet Volume 9.8 fl (7.4-10.4); Monocytes Absolute Auto 0.6 K/mm3 (0.1-0.6); Monocytes Percent Auto 11.2 % (2.6-8.5); Neutrophils Absolute Auto 4.2 K/mm3 (1.3-6.7); Neutrophils Percent Auto 75.8 % (45.5-73.1); Platelet Count Result 177 k/mm3 (150-375); Red Cell Distribution Width 12.6 % (11.5-14.5); White Blood Count 5.5 K/mm3 (4.5-10.0)
[2023-04-25 06:43] LABS: Alanine Aminotransferase 15 U/L (6-35); Albumin Level 2.6 g/dL (3.5-5.1); Alkaline Phosphatase 94 U/L (38-126); Anion Gap 5 mmol/L (8-16); Aspartate Amino Transferase 33 U/L (14-36); Bilirubin,Total 0.7 mg/dL (0.2-1.3); Blood Urea Nitrogen 16 mg/dL (7-17); Calcium 8.1 mg/dL (8.4-10.2); Carbon Dioxide 26 mmol/L (22-30); Chloride 102 mmol/L (98-107); Estimated CRCL calculation 43 ml/min; Estimated Glomerular Filt Rate > 60; Glucose 99 mg/dL (65-110); Magnesium 1.9 mg/dL (1.6-2.3); Potassium 3.4 mmol/L (3.4-5.0); Sodium 133 mmol/L (137-145)
[2023-04-25] MEDS: polyethylene glycoL 3350 17 GM POWD.PACK PO (08:02)
[2023-04-25] MEDS: ASPIRIN 81 MG ENTERIC TABLET PO (08:03)
[2023-04-25] MEDS: diphenhydrAMINE HCl CAP 25 MG CAPSULE PO (08:03)
[2023-04-25] MEDS: SENNA/DOCUSATE SODIUM TABLET 2 TAB PO (08:03)
[2023-04-25] MEDS: EUCERIN CREAM 120 GM JAR 1 APPLIC TOPICAL (08:03)
[2023-04-25] MEDS: oxyCODONE HCL (*CRX) 5 MG TAB IR PO (10:29)
[2023-04-25] MEDS: LIDOCAINE 5% PATCH 1 PATCH TRANSDERM (12:22)
--- NOTE | 2023-04-25 12:42 | PM.DS ---
DS: Admitting Diagnosis Discharge Date 04/25/2023 Admitting Diagnosis Fall DS: Discharge Diagnosis Discharge Diagnosis (1) Closed fracture of right hip: Qualifiers: Encounter type: initial encounter Qualified Code(s): S72.001A - Fracture of unspecified part of neck of right femur, initial encounter for closed fracture Code(s): S72.001A - Fracture of unspecified part of neck of right femur, initial encounter for closed fracture Status: Acute (2) Essential hypertension: Code(s): I10 - Essential (primary) hypertension Status: Acute (3) Musculoskeletal chest pain: Code(s): R07.89 - Other chest pain Status: Acute (4) Fall from bench: Code(s): W08.XXXA - Fall from other furniture, initial encounter Status: Acute (5) Eczema: Qualifiers: Eczema type: unspecified Qualified Code(s): L30.9 - Dermatitis, unspecified Code(s): L30.9 - Dermatitis, unspecified Status: Acute DS: Summary Hospital Course Hospital Course: The patient is an 83-year-old female with a past medical history significant for hypertension, eczema, peripheral neuropathy, cervical radiculopathy at C6, and prior lumbar spine surgery. She presents following a fall from a two-foot height onto her right side, resulting in a displaced transcervical right hip fracture. She reports feeling a popping sensation in her right hip during the fall but denies any head injury or loss of consciousness. She has a history of a knee replacement in January 2023. The emergency department evaluation confirmed the hip fracture, and orthopedics was consulted. The patient underwent a right hip total arthroplasty on April 22, 2023. She is on aspirin 81 mg twice daily for deep vein thrombosis prophylaxis, as recommended by orthopedics. Currently, she is postoperative, with stable vitals and a mild fever postoperative due to has resolved. Labs indicate mild hyponatremia. The patient is scheduled for postoperative physical therapy and rehabilitation.? DC to rehabilitation when accepted care coordination on board. For her hypertension she is back on losartan IV hydralazine p.r.n. intermittent hypertension could be related to pain and distress.? Will continue to monitor.? IV hydralazine p.r.n.. Back pain musculoskeletal suspected x-ray thoracic spine negative lidocaine patch. Continue PT OT Time Spent with Patient Time attestation: Total time spent providing and/or coordinating discharge services: 35 minutes Exam Narrative: GENERAL: The patient is well developed, not in acute distress HEENT: Nonicteric sclerae, PERRLA, EOMI. Oropharynx clear. Moist mucous membranes. Conjunctivae appear well perfused. CHEST: Chest wall is nontender. HEART: Regular rate and rhythm without murmur, rubs, or gallops LUNGS: Clear to auscultation bilaterally. no respiratory distress ABDOMEN: Soft, positive bowel sounds, non-tender, no organomegaly. SKIN: No rash, no excessive bruising, petechiae, or purpura. NEUROLOGIC: Cranial nerves II-XII intact, alert and oriented x 3, no gross motor deficits EXTREMITIES: no edema, cyanosis or clubbing DS: Data Data Completed and Pending Labs on day of discharge: Labs from last 24 hours 04/25/23 05:54 WBC 5.5 RBC 3.10 L Hgb 9.5 L Hct 29.8 L MCV 96.1 MCH 30.6 MCHC 31.9 L RDW 12.6 Plt Count 177 MPV 9.8 Immature Gran % (Auto) 0.4 Neut % (Auto) 75.8 H Lymph % (Auto) 6.7 L Ware % (Auto) 11.2 H Eos % (Auto) 5.4 H Baso % (Auto) 0.5 Lymph # (Auto) 0.37 L Ware # (Auto) 0.6 Eos # (Auto) 0.3 Baso # (Auto) 0.0 Abs Immat Gran (auto) 0.02 Absolute Neuts (auto) 4.2 Absolute Nucleated RBC 0.0 Nucleated RBC % 0.0 Sodium 133 L Potassium 3.4 Chloride 102 Carbon Dioxide 26 Anion Gap 5 L BUN 16 Creatinine 0.70 Estim Creat Clear Calc 43 Estimated GFR > 60 Glucose 99 Calcium 8.1 L Magnesium 1.9 Total Bilirubin 0.7 AST 33 ALT 15 Alkaline Phosphatase 9
== END 2023-04-25 15:04 | DRG 522 ==
LOC: ANHED 18:45 → ANH3MEDSUR 21:02
PROVIDERS: Emergency Medicine; Orthopaedic Surgery; Admitting Provider Internal Medicine; Emergency Provider Physician Assistant; Visit Provider Internal Medicine
PROC: 0SR904A Replacement of Right Hip Joint with Ceramic on Polyethylene Synthetic Substitute, Uncemented, Open Approach (ICD-10-PCS; CPT 27130; principal; 2023-04-22 14:00)
DX: S72.031A Displaced midcervical fracture of right femur, initial encounter for closed fracture (principal); E87.1 Hypo-osmolality and hyponatremia; I10 Essential (primary) hypertension; R07.89 Other chest pain; W08.XXXA Fall from other furniture, initial encounter; L30.9 Dermatitis, unspecified; G62.9 Polyneuropathy, unspecified; M54.12 Radiculopathy, cervical region; Z66 Do not resuscitate; Z96.653 Presence of artificial knee joint, bilateral; Z96.642 Presence of left artificial hip joint; Z96.1 Presence of intraocular lens; Z98.42 Cataract extraction status, left eye; Z98.41 Cataract extraction status, right eye
CPT/HCPCS: 36415; 71045; 72070; 73502; 73560; 80048; 80053; 83735; 84484; 85014; 85018; 85025; 85610; 85730; 86850; 86900; 86901; 93005; 96374; 96376; 97110; 97116; 97161; 97165; 97530; 97535; 99285; A9270; C1776; J0171; J0360; J0690; J1170; J1885; J2270; J2371; J2405; J2704; J2795; J3010; J7030; J7120

== ENCOUNTER 2023-05-13 12:22 | Outpatient (CLI) | payer MEDICARE, SELFPAY ==
[2023-05-13 13:16] LABS: Hematocrit 33.8 % (37.0-47.0); Hemoglobin 10.5 g/dL (12.0-15.0); Mean Corpuscular HGB Conc 31.1 g/dl (32-36); Mean Corpuscular Hemoglobin 29.4 pg (26-34); Mean Corpuscular Volume 94.7 fl (80-100); Mean Platelet Volume 9.2 fl (7.4-10.4); Platelet Count Result 294 k/mm3 (150-375); Red Blood Count 3.57 M/mm3 (4.2-5.4); Red Cell Distribution Width 13.2 % (11.5-14.5); White Blood Count 6.8 K/mm3 (4.5-10.0)
[2023-05-13 13:29] LABS: Albumin Level 3.6 g/dL (3.5-5.1); Anion Gap 6 mmol/L (8-16); Blood Urea Nitrogen 28 mg/dL (7-17); Carbon Dioxide 26 mmol/L (22-30); Chloride 101 mmol/L (98-107); Estimated Glomerular Filt Rate > 60; Glucose 93 mg/dL (65-110); Phosphorus 3.8 mg/dL (2.5-4.5); Sodium 133 mmol/L (137-145)
[2023-05-13 13:47] LABS: Appearance Urine Clear (Clear); Bacteria Urine None Seen /hpf; Bilirubin Urine Negative (Negative); Blood Urine Negative (Negative); Color Urine Yellow (Yellow); Glucose Urine UA Negative (Negative); Ketones Urine Negative (Negative); Leukocyte Esterase Ur 1+ LEU/UL (NEGATIVE); Need Manual Microscopic Reviewed; Nitrate Urine Negative (Negative); Protein Urine Trace mg/dL (Negative); RBC Urine 0-2 /hpf (0-2); Specific Grav Ur 1.024 (1.001-1.035); Squamous Epithelial Cell Urine None seen /hpf (Few); Urobilinogen Urine 0.2 mg/dL (<2.0); WBC Urine 0-5 /hpf (0-3); pH Urine 5.5 (5.0-9.0)
[2023-05-13 13:49] LABS: Add Urine Microscopic? YES
== END 2023-05-13 12:23 | disposition home or self-care (01) ==
LOC: ANHLAB 12:29
PROVIDERS: PCP Orthopaedic Surgery
DX: R60.9 Edema, unspecified (principal); E55.9 Vitamin D deficiency, unspecified; I12.9 Hypertensive chronic kidney disease with stage 1 through stage 4 chronic kidney disease, or unspecified chronic kidney disease; N18.30 Chronic kidney disease, stage 3 unspecified
CPT/HCPCS: 36415; 80069; 81001; 82306; 83970; 85027

== ENCOUNTER 2023-06-26 11:00 | Emergency (ER) | payer MEDICARE, SELFPAY ==
[2023-06-26 11:05] VITALS: BP 126/78; PULSE 69; RESP 16; TEMP 36.6; O2SAT 100
--- NOTE | 2023-06-26 11:47 | ED.NAVMDI ---
HPI - Nausea/Vomiting/Diarrhea General Chief complaint: Nausea/Vomiting/Diarrhea Stated complaint: Diarrhea Time Seen by Provider: 06/26/23 11:35 History of Present Illness HPI Narrative: 83-year-old female presents to emergency department for diarrhea x4 days. Patient states she has approximately 2 episodes of watery diarrhea every night since the onset of symptoms. No diarrhea during the day. She denies abdominal pain, nausea vomiting, fever, dysuria or hematuria, prior abdominal surgeries, melena or hematochezia. States she was recently in contact with her grandson who had a diarrheal illness and is concerned she contracted it. Denies recent antibiotic use or travel. Of note, patient was hospitalized on 04/19/23 to 05/01/2023 for a hip fracture. Related Data Home Medications Medication Instructions Recorded Confirmed acetaminophen 500 mg tablet 1,000 mg PO Q6H PRN Pain 11/08/19 06/09/23 (Tylenol Extra Strength) losartan 50 mg tablet 50 mg PO DAILY 04/19/23 06/09/23 zoledronic acid 5 mg/100 mL in 5 mg IV ONCE 04/19/23 06/09/23 mannitol 5 %-water intravenous piggybck (Reclast) tramadol 50 mg tablet 50 mg PO Q6H PRN 05/12/23 06/09/23 hydralazine 10 mg tablet 10 mg PO BID 06/09/23 06/09/23 Allergies Allergy/AdvReac Type Severity Reaction Status Date / Time No Known Allergies Allergy Verified 06/09/23 09:35 Review of Systems Review of Systems: CONSTITUTIONAL: Denies fever, chills, or sweats. EYES: Denies visual changes, redness, or discharge. ENT: Denies rhinorrhea, congestion, sore throat, or otalgia. CARDIOVASCULAR: Denies chest pain, palpitations, or edema. RESPIRATORY: Denies cough or dyspnea. GASTROINTESTINAL: See HPI GENITOURINARY: Denies dysuria or hematuria. SKIN: Denies rash or itching. MUSCULOSKELETAL: Denies back pain, joint pain, or myalgia. NEUROLOGIC: Denies headache, numbness, or weakness. PSYCHIATRIC: Denies anxiety or depression. [facility], [facility] Past Medical History Medical History Cervical radiculopathy at C6 Eczema Essential hypertension Peripheral neuropathy Due to lumbar spine surgery Surgical History Surgical History History of lumbar surgery History of total right knee replacement (~01/28/23) Presence of left artificial knee joint (04/21/18) Status post cataract extraction of both eyes with insertion of intraocular lens Status post total hip replacement, left Status post total hip replacement, right Family History Family History Other Family history of arthritis Social History Social History Social History: The patient is and lives in her own home. She is independent activities of daily living. She drinks alcohol on occasion but only in moderation. Code status: DNR/DNI (per patient request) Smoking status: Never smoker Second hand tobacco smoke exposure: Yes (not recently) Additional smoking assessment comments: DENIES ANY FORM OF TOBACCO USE Alcohol intake: current Drinks per week: 1 Substance use: never Substance use type: prescription drug Other substance usage details: using Oxycodone po prn post op, takes Tramadol daily for arthritic pain Do You Feel Safe in your Home?: Yes Lack of Transportation: No Lack of Food: Never True Current Housing: I Have Housing Concerned About Future Housing: No Difficulty Paying Gas/Electric Bills: No Difficulty Paying for Meds: No Currently Unemployed: No Education: High School Diploma/GED Difficulty w/ Childcare or Family Care: No Living arrangements: alone Spiritual care concerns: Yes (requests residential housekeeper be able to visit) Exam Narrative: GENERAL: Well-appearing, well-nourished, and in no acute distress. Nontoxic appearing. Pleasant and conversational
[2023-06-26] MEDS: SODIUM CHLORIDE 0.9% IV 1,000 ML 999 ML IV CONT (12:07)
[2023-06-26 12:12] LABS: Basophils Percent Auto 0.6 % (0.2-1.2); Eosinophils Absolute Auto 0.2 K/mm3 (0-0.3); Eosinophils Percent Auto 5.4 % (0-4.4); Hematocrit 39.1 % (37.0-47.0); Hemoglobin 12.8 g/dL (12.0-15.0); Immature Granulocyte Absolute 0.02 K/mm3 (0.00-0.031); Immature Granulocyte Percent A 0.6 % (0-0.5); Lymphocytes Absolute Auto 0.47 K/mm3 (0.9-3.2); Lymphocytes Percent Auto 13.4 % (18.3-44.2); Mean Corpuscular HGB Conc 32.7 g/dl (32-36); Mean Corpuscular Hemoglobin 29.6 pg (26-34); Mean Corpuscular Volume 90.3 fl (80-100); Mean Platelet Volume 9.4 fl (7.4-10.4); Monocytes Absolute Auto 0.4 K/mm3 (0.1-0.6); Monocytes Percent Auto 12.5 % (2.6-8.5); Neutrophils Absolute Auto 2.4 K/mm3 (1.3-6.7); Neutrophils Percent Auto 67.5 % (45.5-73.1); Platelet Count Result 191 k/mm3 (150-375); Red Blood Count 4.33 M/mm3 (4.2-5.4); White Blood Count 3.5 K/mm3 (4.5-10.0)
[2023-06-26 12:13] LABS: Appearance Urine Clear (Clear); Bilirubin Urine Negative (Negative); Blood Urine Negative (Negative); Color Urine Yellow (Yellow); Glucose Urine UA Negative (Negative); Ketones Urine Negative (Negative); Leukocyte Esterase Ur Negative LEU/UL (Negative); Nitrate Urine Negative (Negative); Protein Urine Negative (Negative); Specific Grav Ur 1.014 (1.001-1.035); Urobilinogen Urine 0.2 mg/dL (<2.0); pH Urine 5.5 (5.0-9.0)
[2023-06-26 12:29] LABS: Lactic Acid Reflex 0.7 mmol/L (0.7-2.0)
[2023-06-26 12:31] LABS: Add Urine Microscopic? NO
[2023-06-26 13:38] LABS: Alanine Aminotransferase 16 U/L (6-35); Albumin Level 3.3 g/dL (3.5-5.1); Alkaline Phosphatase 60 U/L (38-126); Anion Gap 5 mmol/L (8-16); Aspartate Amino Transferase 30 U/L (14-36); Bilirubin,Total 0.4 mg/dL (0.2-1.3); Blood Urea Nitrogen 21 mg/dL (7-17); Calcium 8.2 mg/dL (8.4-10.2); Carbon Dioxide 21 mmol/L (22-30); Chloride 110 mmol/L (98-107); Estimated CRCL calculation 39 ml/min; Estimated Glomerular Filt Rate > 60; Glucose 86 mg/dL (65-110); Lipase 122 U/L (23-300); Potassium 4.1 mmol/L (3.4-5.0); Sodium 136 mmol/L (137-145)
[2023-06-26 14:08] VITALS: BP 148/91; PULSE 63; RESP 17; O2SAT 98
[2023-06-26 15:18] LABS: Magnesium 1.5 mg/dL (1.6-2.3)
[2023-06-26] MEDS: MAGNESIUM SULF 1 GM/D5W 100 ML 1 GM/100 ML BAG IVPB (15:35)
[2023-06-26 15:44] VITALS: BP 165/71; PULSE 69; RESP 16; O2SAT 100
[2023-06-26 16:00] LABS: Toxigenic C. Diff NEGATIVE (NEGATIVE)
[2023-06-26 16:51] VITALS: BP 148/81; PULSE 68; RESP 16; O2SAT 96
== END 2023-06-26 16:51 | disposition home or self-care (01) ==
PROVIDERS: Emergency Provider Physician Assistant
DX: R19.7 Diarrhea, unspecified (principal); I10 Essential (primary) hypertension; G62.9 Polyneuropathy, unspecified; Z66 Do not resuscitate; Z96.653 Presence of artificial knee joint, bilateral; Z96.643 Presence of artificial hip joint, bilateral; Z96.1 Presence of intraocular lens; Z98.42 Cataract extraction status, left eye; Z98.41 Cataract extraction status, right eye
CPT/HCPCS: 36415; 80053; 83605; 83690; 83735; 85025; 87493; 96361; 96365; 99284; J3475; J7030

== ENCOUNTER 2023-08-09 09:09 | Outpatient (CLI) | payer MEDICARE, SELFPAY ==
[2023-08-09 09:46] LABS: Appearance Urine Clear (Clear); Bilirubin Urine Negative (Negative); Blood Urine Negative (Negative); Color Urine Yellow (Yellow); Glucose Urine UA Negative (Negative); Ketones Urine Negative (Negative); Leukocyte Esterase Ur Negative LEU/UL (Negative); Nitrate Urine Negative (Negative); Protein Urine Negative (Negative); Specific Grav Ur 1.015 (1.001-1.035); Urobilinogen Urine 0.2 mg/dL (<2.0)
[2023-08-09 09:52] LABS: Add Urine Microscopic? NO
[2023-08-09 09:52] LABS: Hematocrit 38.9 % (37.0-47.0); Hemoglobin 12.7 g/dL (12.0-15.0); Mean Corpuscular HGB Conc 32.6 g/dl (32-36); Mean Corpuscular Hemoglobin 30.4 pg (26-34); Mean Corpuscular Volume 93.1 fl (80-100); Mean Platelet Volume 9.2 fl (7.4-10.4); Platelet Count Result 177 k/mm3 (150-375); Red Blood Count 4.18 M/mm3 (4.2-5.4); Red Cell Distribution Width 13.6 % (11.5-14.5)
[2023-08-09 09:55] LABS: Total Protein Urine Random 10 mg/dL; Ur Ttl Prot Creatinine Ratio 0.13 mg/mg (0-0.20)
[2023-08-09 10:10] LABS: Albumin Level 4.2 g/dL (3.5-5.1); Anion Gap 3 mmol/L (4-12); Blood Urea Nitrogen 22 mg/dL (7-17); Calcium 9.2 mg/dL (8.4-10.2); Carbon Dioxide 28 mmol/L (22-30); Chloride 101 mmol/L (98-107); Estimated Glomerular Filt Rate 60; Glucose 97 mg/dL (65-110); Phosphorus 4.1 mg/dL (2.5-4.5); Potassium 4.5 mmol/L (3.4-5.0); Sodium 132 mmol/L (137-145)
== END 2023-08-09 09:10 | disposition home or self-care (01) ==
DX: I12.9 Hypertensive chronic kidney disease with stage 1 through stage 4 chronic kidney disease, or unspecified chronic kidney disease (principal); N18.31 Chronic kidney disease, stage 3a
CPT/HCPCS: 36415; 80069; 81003; 82570; 84156; 85027

== ENCOUNTER 2023-09-04 07:44 | Outpatient (CLI) | payer MEDICARE, SELFPAY ==
--- NOTE | ~2023-09-04 | XR_ITS ---
EXAMINATION: XR hip LT min 2V DATE: 09/04/2023 08:08 INDICATION: Presence of left artificial hip joint. TECHNIQUE: 2 views of left hip were obtained. COMPARISON: Left hip radiograph 11/08/2019 FINDINGS: There is a total left hip arthroplasty in near-anatomic alignment. No periprosthetic lucenc y to suggest loosening or infection. No fracture. There are changes of anterior and posterior fusion procedures in lumbar spine. Osteitis pubis is noted. IMPRESSION: 1. Total left hip arthroplasty in near-anatomic alignment. Reviewed, dictated and finalized at location A.
--- NOTE | ~2023-09-04 | XR_ITS ---
EXAMINATION: XR knee RT 3V DATE: 09/04/2023 08:09 INDICATION: Presence of right artificial knee joint. TECHNIQUE: 3 views of right knee were obtained. COMPARISON: Right knee radiographs 03/18/2023 FINDINGS: There is a total right knee arthroplasty with patellar resurfacing in near-anatomic alignme nt. No fracture. No periprosthetic lucency to suggest loosening or infection. There is a small knee j oint effusion. IMPRESSION: 1. Total right knee arthroplasty in near-anatomic alignment. 2. Small right knee joint effusion. Reviewed, dictated and finalized at location A.
--- NOTE | ~2023-09-04 | XR_ITS ---
EXAMINATION: XR hip RT min 2V DATE: 09/04/2023 08:09 INDICATION: Presence of right artificial hip joint. TECHNIQUE: 2 views of right hip were obtained. COMPARISON: Right hip radiographs 06/09/2023 FINDINGS: There is a total right hip arthroplasty in near-anatomic alignment. No fracture. No peripro sthetic lucency to suggest loosening or infection. There are changes of anterior and posterior fusion procedures in lumbar spine. Osteitis pubis is noted. IMPRESSION: 1. Total right hip arthroplasty in near-anatomic alignment. Reviewed, dictated and finalized at location A.
== END 2023-09-04 07:45 | disposition home or self-care (01) ==
PROVIDERS: Visit Provider Orthopaedic Surgery
DX: Z96.641 Presence of right artificial hip joint (principal); Z96.651 Presence of right artificial knee joint; Z96.642 Presence of left artificial hip joint; M25.461 Effusion, right knee
CPT/HCPCS: 73502; 73562

== ENCOUNTER 2024-01-10 13:12 | Outpatient (CLI) | payer MEDICARE, SELFPAY ==
[2024-01-10 13:55] LABS: Hematocrit 38.1 % (37.0-47.0); Hemoglobin 12.6 g/dL (12.0-15.0); Mean Corpuscular HGB Conc 33.1 g/dl (32-36); Mean Corpuscular Hemoglobin 31.2 pg (26-34); Mean Corpuscular Volume 94.3 fl (80-100); Mean Platelet Volume 9.6 fl (7.4-10.4); Platelet Count Result 194 k/mm3 (150-375); Red Blood Count 4.04 M/mm3 (4.2-5.4); Red Cell Distribution Width 12.9 % (11.5-14.5); White Blood Count 6.3 K/mm3 (4.5-10.0)
[2024-01-10 14:09] LABS: Albumin Level 4.1 g/dL (3.5-5.1); Anion Gap 6 mmol/L (4-12); Blood Urea Nitrogen 26 mg/dL (7-17); Calcium 8.9 mg/dL (8.4-10.2); Carbon Dioxide 26 mmol/L (22-30); Chloride 99 mmol/L (98-107); Estimated Glomerular Filt Rate 53; Glucose 87 mg/dL (65-110); Phosphorus 4.5 mg/dL (2.5-4.5); Potassium 4.3 mmol/L (3.4-5.0); Sodium 131 mmol/L (137-145)
[2024-01-10 14:10] LABS: Add Urine Microscopic? YES; Appearance Urine Cloudy (Clear); Bacteria Urine None Seen /hpf; Bilirubin Urine Negative (Negative); Blood Urine Negative (Negative); Color Urine Yellow (Yellow); Glucose Urine UA Negative (Negative); Ketones Urine Trace mg/dL (Negative); Leukocyte Esterase Ur 1+ LEU/UL (Negative); Nitrate Urine Negative (Negative); Protein Urine Trace mg/dL (Negative); RBC Urine 0-2 /hpf (0-2); Specific Grav Ur 1.018 (1.001-1.035); Squamous Epithelial Cell Urine None Seen /hpf (Few); pH Urine 5.5 (5.0-9.0)
== END 2024-01-10 13:13 | disposition home or self-care (01) ==
DX: I12.9 Hypertensive chronic kidney disease with stage 1 through stage 4 chronic kidney disease, or unspecified chronic kidney disease (principal); N18.2 Chronic kidney disease, stage 2 (mild); R60.9 Edema, unspecified
CPT/HCPCS: 36415; 80069; 81001; 85027; 87086; 87088

== ENCOUNTER 2024-01-24 07:27 | Outpatient (CLI) | payer MEDICARE, SELFPAY | END 2024-01-24 07:28 | disposition home or self-care (01) | LOC: ANHAUDIO 07:29 | PROVIDERS: PCP Otolaryngology; Visit Provider Otolaryngology | DX: H90.3 Sensorineural hearing loss, bilateral (principal); H69.90 Unspecified Eustachian tube disorder, unspecified ear | CPT/HCPCS: 92557; 92567 ==

== ENCOUNTER 2024-03-22 14:08 | Outpatient (CLI) | payer MEDICARE, SELFPAY ==
[2024-03-22 14:52] LABS: Basophils Absolute Auto 0.1 K/mm3 (0.0-0.1); Basophils Percent Auto 0.7 % (0.2-1.2); Eosinophils Absolute Auto 0.2 K/mm3 (0-0.3); Eosinophils Percent Auto 2.1 % (0-4.4); Hematocrit 40.9 % (37.0-47.0); Hemoglobin 13.5 g/dL (12.0-15.0); Immature Granulocyte Absolute 0.03 K/mm3 (0.00-0.031); Immature Granulocyte Percent A 0.4 % (0-0.5); Lymphocytes Absolute Auto 0.44 K/mm3 (0.9-3.2); Lymphocytes Percent Auto 6.3 % (18.3-44.2); Mean Platelet Volume 9.3 fl (7.4-10.4); Monocytes Absolute Auto 0.6 K/mm3 (0.1-0.6); Neutrophils Absolute Auto 5.8 K/mm3 (1.3-6.7); Neutrophils Percent Auto 82.5 % (45.5-73.1); Platelet Count Result 243 k/mm3 (150-375); Red Blood Count 4.35 M/mm3 (4.2-5.4); Red Cell Distribution Width 13.5 % (11.5-14.5)
[2024-03-22 16:23] LABS: Alanine Aminotransferase 21 U/L (6-35); Albumin Level 4.2 g/dL (3.5-5.1); Alkaline Phosphatase 65 U/L (38-126); Anion Gap 3 mmol/L (4-12); Aspartate Amino Transferase 31 U/L (14-36); Bilirubin,Total 0.5 mg/dL (0.2-1.3); Blood Urea Nitrogen 29 mg/dL (7-17); Calcium 9.1 mg/dL (8.4-10.2); Carbon Dioxide 26 mmol/L (22-30); Chloride 105 mmol/L (98-107); Cholesterol 224 mg/dL (0-200); Estimated Glomerular Filt Rate 53; Glucose 141 mg/dL (65-110); HDL Direct 97 mg/dL; Sodium 134 mmol/L (137-145); Triglycerides 152 mg/dL (<150)
[2024-03-22 16:35] LABS: LDL Cholesterol Direct 87 mg/dL
[2024-03-24 01:31] LABS: TSH QUEST 1.61 mIU/L (0.40-4.50)
== END 2024-03-22 14:09 | disposition home or self-care (01) ==
PROVIDERS: PCP Otolaryngology
DX: E78.2 Mixed hyperlipidemia (principal)
CPT/HCPCS: 36415; 80053; 80061; 84443; 85025

== ENCOUNTER 2024-07-24 11:54 | Outpatient (CLI) | payer MEDICARE, SELFPAY ==
[2024-07-24 12:49] LABS: Basophils Absolute Auto 0.1 K/mm3 (0.0-0.1); Basophils Percent Auto 0.8 % (0.2-1.2); Eosinophils Absolute Auto 0.1 K/mm3 (0-0.3); Hematocrit 40.8 % (37.0-47.0); Hemoglobin 13.3 g/dL (12.0-15.0); Immature Granulocyte Absolute 0.04 K/mm3 (0.00-0.031); Immature Granulocyte Percent A 0.5 % (0-0.5); Lymphocytes Absolute Auto 0.56 K/mm3 (0.9-3.2); Lymphocytes Percent Auto 7.3 % (18.3-44.2); Mean Corpuscular HGB Conc 32.6 g/dl (32-36); Mean Corpuscular Hemoglobin 30.4 pg (26-34); Mean Corpuscular Volume 93.4 fl (80-100); Mean Platelet Volume 9.4 fl (7.4-10.4); Monocytes Absolute Auto 0.7 K/mm3 (0.1-0.6); Monocytes Percent Auto 8.9 % (2.6-8.5); Neutrophils Absolute Auto 6.2 K/mm3 (1.3-6.7); Neutrophils Percent Auto 81.5 % (45.5-73.1); Platelet Count Result 224 k/mm3 (150-375); Red Blood Count 4.37 M/mm3 (4.2-5.4); Red Cell Distribution Width 13.2 % (11.5-14.5); White Blood Count 7.7 K/mm3 (4.5-10.0)
[2024-07-24 13:15] LABS: Albumin Level 4.2 g/dL (3.5-5.1); Anion Gap 7 mmol/L (4-12); Blood Urea Nitrogen 22 mg/dL (7-17); Calcium 8.9 mg/dL (8.4-10.2); Carbon Dioxide 26 mmol/L (22-30); Chloride 102 mmol/L (98-107); Estimated Glomerular Filt Rate 45; Glucose 98 mg/dL (65-110); Potassium 4.2 mmol/L (3.4-5.0); Sodium 135 mmol/L (137-145)
--- OUTSIDE RECORDS SUMMARY | 2024-07-24 13:22 | XMS_ITS | Clinical Summary ---
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 Phone Faye Alvarado MD Primary Care Pro vider Beckie Ansari MD Unavailable [phone] Tyrell Alvarez MD Unavailable [phone] Estella Robles MD Unavailable Colby Townsend DPM Unavailable [phone] Allergies No known active allergies Medications acetaminophen (TYLENOL) 500 mg tablet Take 1 tablet (500 mg total) by mouth every 6 (six) hours as needed for pain Active hydrALAZINE (APRESOLINE) 25 mg tablet Take 0.5 tablets (12.5 mg total) by mouth 3 (three) times a day 45 tablet 11 05/05/2023 Active celecoxib (CeleBREX) 200 mg capsuleIndicati ons:Osteoarthri tis Take 1 capsule (200 mg total) by mouth daily 90 capsule 3 04/21/2024 Active traMADoL (ULTRAM) 50 mg tablet Take 1 tablet (50 mg total) by mouth every 12 (twelve) hours as needed for pain for pain 60 tablet 5 06/06/2024 Active losartan (COZAAR) 100 mg tablet Take 1 tablet by mouth once daily 90 tablet 3 06/06/2024 Active Active Problems Problem Noted Date Diagnosed Date Arthralgia 03/22/2024 Assessment & Plan (03/22/2024 11:28 AM NURSE DISCHARGE): Bilateral hip, hand, wrist, knee pain and lower back pain- refer to rheumatology to evaluate for inflammatory arthritis. Age-related osteoporosis wit hout current pathological fracture 12/03/2023 Assessment & Plan (03/22/2024 11:26 AM NURSE DISCHARGE): Check vitamin D. Patient will get labs and then start iv reclast per bone [employer] NP CKD (chronic kidney disease) stage 3, GFR 30-59 ml/min 05/05/2023 Assessment & Plan (05/05/2023 2:56 PM NURSE DISCHARGE): Chronic, follows with nephrology. Follow up as scheduled. Hospital discharge follow-up 05/05/2023 Assessment & Plan (05/05/2023 2:56 PM NURSE DISCHARGE): I, Comfort Kincaid NP have personally reviewed pertinent inpatient and/or ED records, including discharge medications and [employer] if applicable. This patient's discharge medication list has been reviewed and reconciled with her outpatient medication list and has also been reviewed with patient and/or caregiver. I have noted any changes. S/P right hip fracture 05/05/2023 Closed fracture of right hip 05/05/2023 Assessment & Plan (05/05/2023 2:57 PM NURSE DISCHARGE): New problem, s/p total hip replacement. Home health ordered. Lives alone, needs help with transportation, ACO referral placed. Acute midline thoracic back pain 05/05/2023 Assessment & Plan (05/05/2023 2:58 PM NURSE DISCHARGE): New problem since falling. X-rays were done at outside hospital but I have no records from the hospitalization. Pain is ongoing, requiring tramadol. Updated x-ray of thoracic and lumbar ordered to r/o compression fracture. Heart murmur 03/17/2023 Assessment & Plan (03/22/2024 11:54 AM NURSE DISCHARGE): Had echocardiogram in March last year and no significant valvular heart disease and LV function was normal. Assessment & Plan (03/17/2023 8:28 PM NURSE DISCHARGE): Schedule echocardiogram Weight loss 10/16/2022 Assessment & Plan (10/18/2022 9:19 PM CDT): New problem. Check CBC, TSH, CMP Fatigue 10/16/2022 Assessment & Plan (10/18/2022 9:20 PM CDT): New problem. Check CBC, TSH, CMP Dyspnea on exertion 10/16/2022 Assessment & Plan (03/22/2024 11:55 AM NURSE DISCHARGE): If symptoms worsen then consider referral to Pulmonary Medicine Assessment & Plan (10/18/2022 9:40 PM CDT): New problem. Check echo to rule out LV dysfunction and valvular heart disease Precordial pain 10/16/2022 Assessment & Plan (10/18/2022 9:39 PM CDT): Plan as above. EKG shows normal sinus rhythm with nonspecific stt changes. Check echocardiogram. Consider cardiac stress test Elevated serum creatinine 10/16/2022 Assessment & Plan (10/18/2022 9:23 PM CDT): Check BMP. Push fluids, avoid nephrotoxins, avoid NSAIDs. Check renal function and if worsening- consider referral to nephrology. Stop celebrex and decrease triamterene/hctz to 1/2 tablet per day Numbness and tingling 08/17/2022 Assessment & Plan (08/17/2022 9:10 PM CDT): Worsening problem. Refer to neurology. Patient will need EMG/NCT Cerebral aneurysm 08/17/2022 Assessment & Plan (10/18/2022 9:19 PM CDT): Schedule MRI with MRA of brain Assessment & Plan (08/17/2022 9:09 PM CDT): New problem. Had recent outside MRI brain with incidental finding of cerebral aneurysm. Refer to neurosurgery Unsteady gait 02/13/2022 Assessment & Plan (02/13/2022 5:37 PM CDT): Worsening problem. Likely due to either cervical spinal stenosis or lumbar spinal stenosis. Refer to physical therapy. Refer back to neuro surgery Poor balance 02/13/2022 Assessment & Plan (02/13/2022 5:37 PM CDT): Worsening problem. Refer to physical therapy. Plan as above Personal history of fall 02/13/2022 Assessment & Plan (06/08/2023 3:01 PM NURSE DISCHARGE): Reviewed fall risk and fall assessment. Reviewed need for assist device and physical therapy. Reviewed fall precautions. Patient has had either 1 fall with injury or 2 or more falls. See Rooming Tab under Fall Risk in Epic Chart for full documentation. Assessment & Plan (02/13/2022 5:27 PM CDT): Reviewed fall risk and fall assessment. Reviewed need for assist device and physical therapy. Reviewed fall precautions The patient had 1 fall with injury or 2 or more falls. See Rooming Tab under Fall Risk for full documentation. 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 Refer to Dermatology Dr. Du Assessment & Plan (02/11/2021 11:13 AM CDT): Refer to Dermatology Osteoarthritis of both hands 02/11/2021 Assessment & Plan (02/11/2021 11:13 AM CDT): Consider referral to Hand therapy Dry eye syndrome of both eyes 06/04/2020 Assessment & Plan (06/06/2021 11:17 AM NURSE DISCHARGE): Continue retaine prn Posterior vitreous detachment of both eyes 06/04 Assessment & Plan (06/29/2024 1:39 PM CDT): Stable. Observe. The signs and symptoms of retinal detachment were reviewed. Advised urgent evaluation with any onset. Pseudophakia, both eyes 06/04/2020 Assessment & Plan (06/29/2024 1:39 PM CDT): Clear. Otc readers prn. Assessment & Plan (06/06/2021 11:16 AM NURSE DISCHARGE): Lenses centered and stable, monitor Ptosis of left eyelid 06/04/2020 Assessment & Plan (06/29/2024 1:39 PM CDT): Offered surgical consult but pt elects observation Assessment & Plan (06/06/2021 12:30 PM NURSE DISCHARGE): Stable, monitor Paresthesia 10/10/2019 Assessment & Plan (10/10/2019 12:42 PM CDT): Worsening problem. Refer to Neurology Body mass index (BMI) 19.9 or less, adult 2018 Assessment & Plan (06/08/2023 2:59 PM NURSE DISCHARGE): Patient is thin, but healthy Assessment & Plan (10/18/2022 9:16 PM CDT): Patient is thin, but healthy Assessment & Plan (02/01/2020 3:09 PM CDT): BMI Follow-up includes: nutrition counseling, exercise counseling and education provided. Assessment & Plan (10/10/2019 9:56 AM CDT): Patient slightly underweight. Encouraged regular meals. Continue healthy diet- fruits, vegetables, lean meat, fish, and regular exercise. Assessment & Plan (04/27/2019 11:33 AM NURSE DISCHARGE): Weight is stable and unchanged for patient. Assessment & Plan (02/01/2019 5:14 PM CDT): Patient is thin, but is healthy Grief 02/01/2019 Assessment & Plan (02/01/2019 5:16 PM CDT): This is related to her who has in November 2018. We discussed local measures to treat grief and bereavement. Advised to enlist help of family, friends and judaism. There are no signs or symptoms of major depression BMI 20.0-20.9, adult 10/27/2017 Assessment & Plan (03/17/2023 8:27 PM NURSE DISCHARGE): Patient at healthy weight. Continue healthy diet- fruits, vegetables, lean meat, fish, and regular exercise. Assessment & Plan (08/17/2022 9:09 PM CDT): Patient at healthy weight. Continue healthy diet- fruits, vegetables, lean meat, fish, and regular exercise. Assessment & Plan (02/13/2022 11:45 AM CDT): BMI Follow-up includes: nutrition counseling, exercise counseling and education provided. Assessment & Plan (02/11/2021 10:15 AM CDT): BMI Follow-up includes: nutrition counseling, exercise counseling and education provided. Assessment & Plan (10/27/2017 9:20 AM CDT): The patient is at a healthy weight. Continue healthy diet including fruits, vegetables, fish, and lean meats. Continue regular exercise. Generalized osteoarthritis 10/27/2017 Assessment & Plan (06/08/2023 3:00 PM NURSE DISCHARGE): Continue current medications and call if problems or side effects. Assessment & Plan (11/05/2022 10:42 AM CDT): Chronic patient is currently off her Celebrex with significant pain. Her PCP is sent tramadol to the pharmacy she notes that it helps with mild relief of pain worried about taking too much medication we discussed acceptable to take every 12 hours as needed for pain-stay in contact with her PCP until she seen by Nephrology regarding her pain Assessment & Plan (10/27/2017 10:39 AM CDT): Continue current medications as directed. Call if problems with medications. Patient to undergo a left knee replacement in April 2018. Follow-up with Orthopedics Neck pain 10/27/2017 Assessment & Plan (10/27/2017 10:38 AM CDT): This is a new problem. Is worsening. It is been going on for 1 month after doing yard work and also because the patient sits and spends time sewing clothes. Pain radiates to the upper right shoulder. Will start Neurontin 100 mg 3 times a day, check x- ray of cervical spine, refer to physical therapy. Neck nodule 10/27/2017 Assessment & Plan (10/27/2017 10:57 AM CDT): This is a mobile nodule in the right posterior neck. This may be related to muscle spasm versus lymph node. Patient will undergo physical therapy and will call me in 2 months if the nodule persist and will then order a CT of the neck with IV contrast for further evaluation Age-related osteoporosis wit h current pathological fracture with routine healing 07/21/2017 Assessment & Plan (06/08/2023 2:59 PM NURSE DISCHARGE): Continue current medications and call if problems or side effects. Follow up with bone health Assessment & Plan (05/05/2023 2:56 PM NURSE DISCHARGE): Chronic, on reclast. Continue to follow up with bone health Assessment & Plan (03/17/2023 8:27 PM NURSE DISCHARGE): Check vitamin D level Assessment & Plan (10/18/2022 9:17 PM CDT): Continue current medications and call if problems or side effects. Check vitamin D level. Assessment & Plan (02/11/2021 11:14 AM CDT): Continue regular exercise and check vitamin-D level Assessment & Plan (02/01/2019 5:15 PM CDT): Continue current medications as directed. Call if problems with medications. Follow up with bone metabolism, Dr. Joselyn Ansari Unspecified chronic otitis externa, bilateral Sensorineural hearing loss, bilateral 04/27/2017 Herpes zoster with complication 12/02/2016 Assessment & Plan (12/02/2016 6:15 PM CDT): Completed course of Valtrex. Patient will not benefit from a 2nd course of Valtrex. The rash does not appear infected. 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 She has post herpetic neuralgia and neuropathy. Will prescribe Lidoderm patch 5% on 12 hours off 12 hours and will prescribe gabapentin 100 mg p.o. t.i.d. and will adjust dose upward for pain relief. The patient will call in 1 week with an update on her symptoms and will increase the dose of gabapentin at that time. I discussed the risk and benefits of using these medications and counseled patient for more than 50% of the time. I Answered all her questions Encounter for screening 10/21/2016 Assessment & Plan (03/17/2023 8:28 PM NURSE DISCHARGE): Reviewed fall risk and fall assessment. Patient is NOT a scotty. Patient has had no falls. See Rooming Tab under Fall Risk in Epic Chart for full documentation. Assessment & Plan (02/11/2021 11:14 AM CDT): Reviewed fall assessment and reviewed fall risk. PATIENT IS NOT A SCOTTY. The patient has not fallen this year. See Rooming Tab under Fall Risk in the Epic Chart for full documentation. Assessment & Plan (02/01/2020 4:18 PM CDT): Reviewed fall assessment and reviewed fall risk. PATIENT IS NOT A SCOTTY. The patient has not fallen this year. See Rooming Tab under Fall Risk in the Epic Chart for full documentation. Assessment & Plan (02/01/2019 5:15 PM CDT): Reviewed fall assessment and reviewed fall risk. PATIENT IS NOT A SCOTTY. The patient has not fallen this year. See Rooming Tab under Fall Risk in the Epic Chart for full documentation. Assessment & Plan (10/27/2017 9:20 AM CDT): Reviewed fall assessment and reviewed fall risk. PATIENT IS NOT A SCOTTY. The patient has not fallen this year. See Rooming Tab under Fall Risk in the Epic Chart for full documentation. Assessment & Plan (12/02/2016 6:20 PM CDT): Reviewed fall assessment and reviewed fall risk. PATIENT IS NOT A SCOTTY. The patient has not fallen this year. See Rooming Tab under Fall Risk in the Epic Chart for full documentation. Assessment & Plan (10/21/2016 5:34 PM CDT): Reviewed fall assessment and reviewed fall risk. PATIENT IS NOT A SCOTTY. The patient has not fallen this year. See Rooming Tab under Fall Risk in the Epic Chart for full documentation. Body mass index (BMI) 21.0-21.9, adult 7 Assessment & Plan (12/02/2016 6:19 PM CDT): The patient is at a healthy weight. Continue healthy diet including fruits, vegetables, fish, and lean meats. Continue regular exercise. Assessment & Plan (10/21/2016 5:34 PM CDT): The patient is at a healthy weight. Continue healthy diet including fruits, vegetables, fish, and lean meats. Continue regular exercise. Cough 10/21/2016 Assessment & Plan (10/21/2016 5:36 PM CDT): Cough is likely due to non allergic rhinitis. Advised the patient to use [id number] antihistamine or [id number] nasal spray Medicare annual wellness visit, subsequent 10/20 Assessment & Plan (03/22/2024 11:26 AM NURSE DISCHARGE): Plan as below Assessment & Plan (03/17/2023 8:29 PM NURSE DISCHARGE): Patient here for annual Medicare wellness visit and for review of complete medical problem list. All the elements of this exam was completed as outlined by CMS. A copy of the prevention plan was given to the patient. I reviewed Medicare wellness questionnaire which includes other physicians involved in care, depression screen, advanced directives, cognitive/memory, and functional assessment. I reviewed and updated the complete problem list, medication list, family history, and immunization records. I provided counseling early detection interventions to the patient through health maintenance update and summary of today's visit. Assessment & Plan (02/13/2022 5:26 PM CDT): Patient here for annual Medicare wellness visit and for review of complete medical problem list. All the elements of the plan were completed as outlined by CMS. A copy of the prevention plan was given to the patient. I reviewed Medicare wellness questionnaire (other physicians involved in care, depression screen, advance directives), cognitive/memory, and functional assessment. And in I[facility] progress notes. Reviewed and updated the complete problem list, medication list, family history, and immunization records with the patient. I provided preventive counseling and early detection interventions to the patient through health maintenance update and summary of today's visit. Assessment & Plan (02/11/2021 11:14 AM CDT): Patient here for annual Medicare wellness visit and for review of complete medical problem list. All the elements of the plan were completed as outlined by CMS. A copy of the prevention plan was given to the patient. I reviewed Medicare wellness questionnaire (other physicians involved in care, depression screen, advance directives), cognitive/memory, and functional assessment. And in ICS progress notes. Reviewed and updated the complete problem list, medication list, family history, and immunization records with the patient. I provided preventive counseling and early detection interventions to the patient through health maintenance update and summary of today's visit. Assessment & Plan (02/01/2020 4:18 PM CDT): Patient here for annual Medicare wellness visit and for review of complete medical problem list. The patient has no cognitive or memory impairment. All the elements of the plan were completed as outlined by CMS. A copy of the prevention plan was given to the patient. I reviewed Medicare wellness questionnaire (other physicians involved in care, depression screen, advance directives), cognitive/memory, and functional assessment. And in ICS progress notes. Reviewed and updated the complete problem list, medication list, family history, and immunization records with the patient. I provided preventive counseling and early detection interventions to the patient through health maintenance update and summary of today's visit. Assessment & Plan (02/01/2019 5:16 PM CDT): Patient here for annual Medicare wellness visit and for review of complete medical problem list. The patient has no cognitive or memory impairment. All the elements of the plan were completed as outlined by CMS. A copy of the prevention plan was given to the patient. I reviewed Medicare wellness questionnaire (other physicians involved in care, depression screen, advance directives), cognitive/memory, and functional assessment. And in ICS progress notes. Reviewed and updated the complete problem list, medication list, family history, and immunization records with the patient. I provided preventive counseling and early detection interventions to the patient through health maintenance update and summary of today's visit. Assessment & Plan (10/27/2017 9:21 AM CDT): Patient here for annual Medicare wellness visit and for review of complete medical problem list. The patient has no cognitive or memory impairment. All the elements of the plan were completed as outlined by CMS. A copy of the prevention plan was given to the patient. I reviewed Medicare wellness questionnaire (other physicians involved in care, depression screen, advance directives), cognitive/memory, and functional assessment. And in ICS progress notes. Reviewed and updated the complete problem list, medication list, family history, and immunization records with the patient. I provided preventive counseling and early detection interventions to the patient through health maintenance update and summary of today's visit. Assessment & Plan (10/21/2016 5:33 PM CDT): Patient here for annual Medicare wellness visit and for review of complete medical problem list. The patient has no cognitive or memory impairment. All the elements of the plan were completed as outlined by CMS. A copy of the prevention plan was given to the patient. I reviewed Medicare wellness questionnaire (other physicians involved in care, depression screen, advance directives), cognitive/memory, and functional assessment. And in ICS progress notes. Reviewed and updated the complete problem list, medication list, family history, and immunization records with the patient. I provided preventive counseling and early detection interventions to the patient through health maintenance update and summary of today's visit. Drug indicated 10/24/2013 Overview (07/17/2016): LONG-TERM USE MEDS NEC Intractable migraine 10/24/2013 Overview (07/17/2016): MGRN UNSP W NTRC MGR STD Osteoarthritis 08/26/2013 Overview (07/15/2016): OSTEOARTHROS NOS-UNSPEC Assessment & Plan (10/18/2022 9:37 PM CDT): Will need to postpone knee replacement until cardiac and renal evaluation completed Assessment & Plan (10/21/2016 5:34 PM CDT): Changed Celebrex to 100 mg twice a day and continue p.r.n. tramadol Disorder of bone and cartilage 08/26/2013 Overview (07/15/2016): BONE & CARTILAGE DIS NOS Assessment & Plan (02/13/2022 5:25 PM CDT): Check vitamin-D level Assessment & Plan (02/01/2019 5:15 PM CDT): Plan as above Assessment & Plan (10/27/2017 9:20 AM CDT): Continue calcium, vitamin-D, and IV Reclast Assessment & Plan (10/21/2016 5:33 PM CDT): Continue current medications as directed. Call if problems with medications. Thoracic and lumbosacral neuritis 08/26/2013 Overview (07/16/2016): LUMBOSACRAL NEURITIS NOS Assessment & Plan (08/17/2022 9:10 PM CDT): Restart tramadol Essential hypertension 08/26/2013 Overview (07/16/2016): HYPERTENSION NOS Assessment & Plan (06/08/2023 2:59 PM NURSE DISCHARGE): Continue current medications. Continue low salt diet, home blood pressure checks and low salt diet. Avoid NSAIDs and decongestants which may raise blood pressure Assessment & Plan (05/05/2023 2:55 PM NURSE DISCHARGE): Chronic, uncontrolled. Was started on hydralazine 12.5 mg TID while in the hospital. Amlodipine was restarted as well. She has peripheral edema historically with higher doses of amlodipine. Increase losartan to 100 mg daily, will need to follow up BMP to monitor her CKD. Will follow up in the office in 1 month. Assessment & Plan (03/17/2023 8:34 PM NURSE DISCHARGE): Patient is stopping amlodipine due to peripheral edema and starting losartan per renal. Assessment & Plan (11/05/2022 10:41 AM CDT): Chronic controlled Patient with recently elevated creatinine lowering GFR referred to Dr. Murray She is currently off Celebrex her triamterene hydrochlorothiazide is in half with new onset mild edema. Have ordered compression hose Blood work reviewed with patient Assessment & Plan (10/18/2022 9:24 PM CDT): Continue amlodipine and Decrease triamterene/hctz to 1/2 tablet per day. Check home blood pressures for 2 weeks and call back with results. Assessment & Plan (08/17/2022 9:10 PM CDT): Continue current medications. Continue low salt diet, home blood pressure checks and low salt diet. Avoid NSAIDs and decongestants which may raise blood pressure Assessment & Plan (02/01/2020 4:18 PM CDT): Continue current medications. Continue low salt diet and home blood pressure checks. Recommend regular exercise. Assessment & Plan (10/10/2019 12:43 PM CDT): Worsening problem. Add amlodipine 2.5 mg PO daily. Continue triamterene hydrochlorothiazide She is to continue tracking BP at home and will communicate readings via [employer]. She will call in 1 week with her blood pressure readings. EKG shows normal sinus rhythm with RSR normal variant. No acute changes. Assessment & Plan (10/27/2017 10:38 AM CDT): Continue current medications. Continue low salt diet and home blood pressure checks. Recommend regular exercise. Sciatica 08/26/2013 Overview (07/16/2016): SCIATICA Hyperlipidemia 08/26/2013 Overview (07/16/2016): HYPERLIPIDEMIA NEC/NOS Assessment & Plan (03/22/2024 11:25 AM NURSE DISCHARGE): Continue strict low fat diet and regular exercise to lower cholesterol. Assessment & Plan (06/08/2023 3:01 PM NURSE DISCHARGE): Continue strict low fat diet and regular exercise to lower cholesterol. Assessment & Plan (03/17/2023 8:29 PM NURSE DISCHARGE): Continue strict low fat diet and regular exercise to lower cholesterol. Assessment & Plan (10/18/2022 9:24 PM CDT): Continue strict low fat diet and regular exercise to lower cholesterol. Assessment & Plan (02/13/2022 5:26 PM CDT): Continue low cholesterol and low fat diet. Recommend regular exercise. Assessment & Plan (02/11/2021 11:13 AM CDT): Continue low-cholesterol low-fat diet and regular exercise Assessment & Plan (02/01/2020 4:18 PM CDT): Continue low-cholesterol low-fat diet Assessment & Plan (02/01/2019 5:16 PM CDT): Continue low-cholesterol low-fat diet Assessment & Plan (10/27/2017 9:21 AM CDT): Continue low-cholesterol low-fat diet Assessment & Plan (10/21/2016 5:33 PM CDT): Continue low cholesterol and low fat diet. Recommend regular exercise. 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 Will prescribe Lidoderm patch 5% on 12 hours and off 12 hours to the affected area and start gabapentin 100 mg p.o. t.i.d. and she will call me in 1 week if she would like me to increase the dose. Reviewed potential side effects of both meds medications. Encounters Date Type Department Care Team Description 06/29/2024 1:00 PM CDT Office Visit [facility] Ophthalmology [address] [place] [address] [address] [place] [address] Tyrell Miranda, OD Ptosis of left eyelid (Primary Dx); Posterior vitreous detachment of both eyes; Pseudophakia, both eyes 06/16/2024 Telephone [facility] Ophthalmology [address], [address] [place] [address] Maria Eugenia Scruggs, OD 05/03/2024 Telephone [facility] Rhe[facility]ology at [facility] [address] [place] [address] Agnes Jack NP Appt from Last 3 Months Immunizations Immunization Administration Dates Next Due 29-influenza, Quadrivalent, Split, Im 01/10/2018 Influenza, Quadrivalent, Hig h Dose, Preservative Free, Intrr 03/17/2023,02/03/2022,01/23/2021,12/28 Influenza, Split 02/08/2009 Influenza, Trivalent, Adjuva nted, Intramuscular 01/10/2018 Influenza, Trivalent, High D ose, Split, Preservative Free, Intramuscular 03/22/2024,02/01/2019,02/02/2017,03/07,04/30/2015,02/06/2015,01/21/2013 ,03/16/2011,03/12/2010 Influenza, Trivalent, IM (MDV) 01/25/2013,2011 Influenza, Unspecified 01/27/2017 Pneumococcal Conjugate PCV 13 10/08/2014 Pneumococcal Conjugate Pcv20 03/22/2024 Pneumococcal Polysaccharide PPV23 10/05/2008 Tdap 05/13/2010 ZOSTER LIVE 06/30/2011 Surgical History Surgery Date Site/Laterality Comments OTHER SURGICAL HISTORY hx severe lumbar spinal stenosis: s/p steroid epidural injection OTHER SURGICAL HISTORY lumbar stenosis: s/p lumbar fusion CATARACT EXTRACTION Right Cataract extraction TOTAL HIP ARTHROPLASTY 04/12/2015 - 04/11/2016 Left TOTAL KNEE ARTHROPLASTY 04/12/2018 - 05/12/2018 Left CATARACT EXTRACTION 04/12/2014 - 04/11/2015 Left SPINE SURGERY 2 Cages. 8 screws. 10/2009 TUBAL LIGATION 04/12/1979 - 04/11/1980 CARPAL TUNNEL RELEASE 04/12/2020 - 04/11/2021 Right CARPAL TUNNEL RELEASE 04/12/2019 - 04/11/2020 Left JOINT REPLACEMENT KNEE ARTHROPLASTY 01/28/2023 Right Medical History Medical History Date Comments Hypertension Arthritis Cataract Lumbar spinal stenosis S/P total hip arthroplasty Age-related osteoporosis without current patholo gical fracture 12/03/2023 Family History Medical History Relation Name Comments Other Brother 3 air embolism; C ause of : air embolism Brain Aneurysm Brother 4 brain aneurys m; Cause of : brain aneurysm Anesthesia problems Father Red Delayed emergence Heart disease Father Red Heart failure Father Red Congestive hea rt failure; Cause of : Congestive heart failure Alzheimer's disease Mother Delia Alzheime r's Disease; Cause of : Alzheimer's Disease Arthritis Mother Delia Relation Name Status Comments Brother 1 (Age 61) Brother 2 (Age 59) Brother 3 Brother 4 Father Red (Age 85) Mother Delia (Age 94) Social History Tobacco Use Types Packs/Day Years Used Date Smoking Tobacco: Never Smokeless Tobacco: Never Alcohol Use Standard Drinks/Week Comments Yes 0 (1 standard drink = 0.6 oz pur e alcohol) rarely [facility] Utilities Answer Date Recorded In the past 12 months has th e electric, gas, oil, or water company threatened to shut off services in your home? No 05/07/2023 Social Connection and Isolat ion Panel [NHANES] Answer Date Recorded In a typical week, how many times do you talk on the phone with family, friends, or neighbors? More than three times a week 05/07/2023 How often do you get togethe r with friends or relatives? More than three times a week 05/07/2023 How often do you attend [facility] or muslim services? More than 4 times per year 05/07/2023 Do you belong to any clubs o r organizations such as judaism groups, unions, fraternal or athletic groups, or school groups? No 05/07/2023 How often do you attend meet ings of the clubs or organizations you belong to? Never 05/07/2023 Are you , , di vorced, , never , or living with a partner? 05/07/2023 AUDIT-C Answer Date Recorded Q1: How often do you have a drink containing alc ohol? 2-4 times a month 10/08/2021 Q2: How many drinks containi ng alcohol do you have on a typical day when you are drinking? 1 or 2 10/08/2021 Q3: How often do you have si x or more drinks on one occasion? Never 10/08/2021 Overall Financial Resource Strain (CARDIA) Answe r Date Recorded How hard is it for you to pa y for the very basics like food, housing, medical care, and heating? Not very hard 05/07/2023 PHQ-2 Answer Date Recorded PHQ-2 Total Score (If total score is 3 or more points, staff should administer the PHQ-9) 0 03/22/2024 Hunger Vital Sign Answer Date Recorded Within the past 12 months, y ou worried that your food would run out before you got the money to buy more. Never true 05/07/19 24 Within the past 12 months, t he food you bought just didn't last and you didn't have money to get more. Never true 05/07/2023 PRAPARE - Transportation Answer Date Re corded In the past 12 months, has l ack of transportation kept you from medical appointments or from getting medications? No 04/13 In the past 12 months, has l ack of transportation kept you from meetings, work, or from getting things needed for daily living? No 05/07/2023 Housing Stability Vital Sign Answer Zeb e Recorded In the last 12 months, was t here a time when you were not able to pay the mortgage or rent on time? No 05/07/2023 In the last 12 months, how many places have you lived? 1 05/07/2023 In the last 12 months, was t here a time when you did not have a steady place to sleep or slept in a assisted (including now)? No 05/07/2023 Comments No Sex and Gender Information Value Date Recorded Sex Assigned at Not on file Legal Sex Female 11:40 PM NURSE DISCHARGE Gender Identity Female 02/10/2021 6:27 PM CDT Sexual Orientation Not on file Obstetrics History Last Filed Vital Signs Vital Sign Reading Time Taken Comments Blood Pressure 142/80 03/22/2024 10:58 AM NURSE DISCHARGE Pulse 66 03/22/2024 10:58 AM NURSE DISCHARGE Temperature 37.1 C (98.8 F) 11/22/2023 12:37 PM CDT Respiratory Rate 20 11/22/2023 12:37 PM CDT Oxygen Saturation 95% 03/22/2024 10:58 AM NURSE DISCHARGE Inhaled Oxygen Concentration - - Weight 48 kg (105 lb 12.8 oz) 03/22/2024 10:58 A M NURSE DISCHARGE Height 154.3 cm (5' 0.75 ) 03/22/2024 10:[address] Body Mass Index 20.16 03/22/2024 10:58 AM NURSE DISCHARGE Plan of Treatment Health Maintenance Due Date Last Done Comments Hepatitis B Screening 02/08/1958 Zoster Vaccine (2 of 3) 08/25/2011 06/30/2011 DTaP/Tdap/Td Vaccine (2 - Td or Tdap) 05/13/2020 05/13/2010 Covid-19 Vaccine (5 - 2023-2 5 season) 2023 07/22/2021, 01/23/2021, 05/28/2020, Additional history exists Depression Screening 03/22/2025 03/22/2024, 03/17/2023, 11/05/2022, Additional history exists Fall Risk Assessment 03/22/2025 03/22/2024, 03/17/2023, 11/05/2022, Additional history exists Well Visit 65+ 03/22/2025 03/22/2024, 09/2022, 02/13/2022, Additional history exists Osteoporosis Screening-Bone Density Scan 12/02/2025 12/03/2023, 12/03/2022, 10/29/2021, Additional history exists Influenza Vaccine Completed 03/22/2024, , 02/03/2022, Additional history exists Pneumococcal vaccine 65+ Completed 024, 10/08/2014, 10/05/2008 Procedures Procedure Name Priority Date/Time Associated Diagnosis Comments DEXA TBS AXIAL SKELETON BONE DENSITY 1 OR MORE SITES Schedule Routine, Read Routine (OP Routine) 12/03/2023 2:02 PM CDT Age-related osteoporosis without current pathological fracture from Last 3 Months or Most Recently Relevant to Health Maintenance Results * Dexa TBS Axial Skeleton Bone Density 1 or more sites (12/03/2023 2:02 PM CDT) Anatomical Region Laterality Modality Wrist, Body N/A Radiographic Kyra ging Narrative 12/03/2023 5:41 PM CDT Patient Name: Jia Sequeira Date of : 1940 Date of scan: 12/03/2023 Bone mineral density was performed on a Hologic Discovery Densitometer. Based on machine cross-calibration and precision studies the least significant changes of this densitometer is 0.024 g/cm2 at the spine, 0.020 g/cm2 at the total proximal femur, and 0.014g/cm2 at the forearm. HISTORY: This is a 83 y.o. postmenopausal female with a history of low bone mass and multiple fractures. She reports that she has never smoked. She has never used smokeless tobacco. Previously treated with zoledronic acid (Reclast), hormone replacement therapy, and diuretics and current complaint of arm pain, back pain, neck pain, and leg pain. INDICATIONS: Menopause status, history of prior hip and wrist fracture, and history of low bone mass. FINDINGS: BONE MINERAL DENSITY OF THE FOREARM Bone Mineral density (BMD) of the left proximal 1/3 of the radius measures 0.683 gm/cm2. This corresponds to a T-score (standard deviations from the mean of young adults) of -0.2. When compared to the previous study of 12/01/2022 there has been no significant changes in bone density. A forearm bone density study was performed instead of a proximal femur study because of presence of surgical hardware. SUMMARY: Bone mineral density is near the young adult normal mean with no increased risk for fracture. There has been no significant changes in bone density since previous measurement. The lumbar spine Trabecular Bone Score TBS was not obtained due to the bone mineral density of the spine not being acquired. ADDITIONAL COMMENTS: Postmenopausal Women and Men Over 50: Diagnostic criteria: Osteoporosis: BMD at or below -2.5 T-score; Osteopenia (low bone mass): BMD between -1.0 and -2.5 T-score. If the patient has a history of a fragility fracture, a fracture that occurred with trauma equivalent to a fall from a standing position or less, then the diagnosis is osteoporosis regardless of bone density. The history and data sections of the bone mineral density scan were prepared by Linsey Oneil (R)(CBDT)who is accredited by the International Society of Clinical Densitometry. The overall patient assessment and scan interpretation were performed by Beckie Ansari M.D.who is certified by the International Society of Clinical Densitometry. [id number] Dina Clinton [facility] DXA PROCEDURES Final Result from Last 3 Months or Most Recently Relevant to Health Maintenance Insurance [facility] MEDICARE [employer] MEDICARE SUPPLEMENT MEDICARE [facility] MEDICARE SUPPLEMENT Advance Directives For more information, please contact: [phone] Documents on File Type Date Recorded Patient Janitor Caretaker Expl anation ADVANCE DIRECTIVE 05/07/2019 ADVANCE DIRECTIVE 02/21/2019 Care Teams Heavy Truck Mechanic Relationship Specialty Start Date End Date Faye Alvarado MD [address] [place] [address] PCP - General 04/18/09 Beckie Ansari MD [address] [address] [place] [address] Referring Physician Endocrinology Diabetes & Metabolism 02/01/19 Tyrell Alvarez MD [address] [place] [address] [address] [place] [address] Referring Physician Orthopedic Surgery 02/01/19 Estella Robles MD [address] [facility] [address] [address] Consulting Physician Dermatology 02/01/19 Colby Townsend DPM [address] [facility] [address] [place] [address] Referring Physician Foot and Ankle Surg 02/01/19
--- OUTSIDE RECORDS SUMMARY | 2024-07-24 13:22 | XMS_ITS | Continuity of Care Document ---
Author Organization [facility] Address [address] [facility] [address] [place] [address] Phone Care Team Providers Care Laundry Helper Name Role Phone Pond OD, Michele Unavailable Unavailable Procedures Procedure Date Eye Exam & Treatment No Script Refraction Advance Directives Directive Yes / No Effective Date File Name No Information Encounters Encounter Description Practice Location Reason(s) For Visit Diagnoses Date Provider Providers Copied on Encounter [facility], [address] [place], [place], [id number], [place] tel:[phone] [facility] No Information [address] OD Michele. [address], [place], [address], [place]. tel:[phone] Family History Family Member Type Diagnosis Age At Onset No Information Payers Payer name Insurance type Covered democrat ID Authoriza tion(s) [place] [id number] [place] [id number] Social History Type Description Quantity Date Captured [...]
--- OUTSIDE RECORDS SUMMARY | 2024-07-24 13:22 | XMS_ITS | Clinical Summary ---
Author Organization [facility] Address [address] [place] [place] [address] Phone Care Team Providers Care Outside Machinist Apprentice Name Role Phone Faye Alvarado MD Primary Care Provider Allergies No known active allergies Medications triamterene-hydr ochlorothiazide (DYAZIDE) 37.5-25 mg capsule Take 1 Cap by mouth daily full time staff interpreter. Active celecoxib (CELEBREX) 200 mg capsule Take 1 Cap by mouth daily. Active traMADol (ULTRAM) 50 mg tablet Take 1-3 Tabs by mouth every 6 hours as needed. Active CALCIUM CARBONATE/VITAMI N D3 (CALCIUM 600 + D,3, ORAL) Take 1 Tab by mouth daily. Active multivitamin (DAILY-USAMA) tablet Take 1 Tab by mouth daily. Active 0mega-3 fatty acids-vitamin E (FISH OIL) 1,000 mg Capsule Take 1 Cap by mouth daily. Active Active Problems Problem Noted Date Diagnosed Date HTN (hypertension) Family History Medical History Relation Name Comments Heart Failure Father Arrhythmia Mother Relation Name Status Comments Father Mother Social History Tobacco Use Types Packs/Day Years Used Date Smoking Tobacco: Never Alcohol Use Standard Drinks/Week Comments Yes 2.5 (1 standard drink = 0.6 oz p ure alcohol) Comments Unknown Sex and Gender Information Value Date Recorded Sex Assigned at Not on file Legal Sex Female 2:44 PM CDT Gender Identity Not on file Sexual Orientation Not on file Last Filed Vital Signs Vital Sign Reading Time Taken Comments Blood Pressure 128/88 02/13/2014 3:08 PM WELDER FITTER GAS Pulse 64 02/13/2014 3:08 PM WELDER [employer]TER GAS Temperature - - Respiratory Rate - - Oxygen Saturation 96% 02/13/2014 3:08 PM WELDER FITTER GAS Inhaled Oxygen Concentration - - Weight 51.3 kg (113 lb) 02/13/2014 3:08 PM WELDER FITTER GAS Height 157.5 cm (5' 2 ) 02/13/2014 3:08 PM WELDER [employer]TER GAS Body Mass Index 20.67 02/13/2014 3:08 PM WELDER FITTER GAS Plan of Treatment Health Maintenance Due Date Last Done Comments ZOSTER VACCINE (1 of 2) 02/08/1992 OSTEOPOROSIS SCREENING 2007 RSV VACCINE (60+ or ) (1 - 1-dose 75+ series) 2017 DTAP/TDAP/TD VACCINES (2 - T d or Tdap) 05/13/2020 05/13/2010 INFLUENZA VACCINE (#1) 2023 5, 01/21/2013, 03/07/2012, Additional history exists PNEUMOCOCCAL VACCINE 50+ YEARS Completed 10/08/2014 , 10/05/2008 Insurance MEDICARE PART A AND B BCBS SUPP Care Teams Outside Machinist Apprentice Relationship Specialty Start Date End Date Faye Alvarado MD [address] [phone] PCP - General Internal Medicine 10/05/13
--- OUTSIDE RECORDS SUMMARY | 2024-07-24 13:22 | XMS_ITS | Referral Summary ---
Author Organization [facility] Address [address] [place] [address] Care Team Providers Care Mannequin Decorator Name Role Phone Faye Alvarado MD Primary Care Pro vider Beckie Ansari MD Unavailable Tyrell Alvarez MD Unavailable [phone] Estella Robles MD Unavailable [phone] Colby Townsend DPM Unavailable [phone] Encounters Date Type Department Care Team Description 06/29/2024 1:00 PM CDT Office Visit [facility] Ophthalmology [address] [place] [address] [address] [place] [address] Tyrell Miranda, OD Ptosis of left eyelid (Primary Dx); Posterior vitreous detachment of both eyes; Pseudophakia, both eyes 06/16/2024 Telephone [facility] Ophthalmology [address], [address] [place] [address] Maria Eugenia Scruggs, OD 05/03/2024 Telephone [facility] Rheumatology at [facility] [address] [place] [address] Agnes Jack BANBURY OPERATOR Appt from Last 3 Months Allergies No known active allergies Medications acetaminophen [...] 03/22/2024 Assessment & Plan (03/22/2024 11:28 AM VOCAL ARTIST): Bilateral hip, hand, wrist, knee pain and lower back pain- refer to rheumatology to evaluate for inflammatory arthritis. Age-related osteoporosis wit hout current pathological fracture 12/03/2023 Assessment & Plan (03/22/2024 11:26 AM VOCAL ARTIST): Check vitamin D. Patient will get labs and then start iv [facility] CKD (chronic kidney disease) stage 3, GFR 30-59 ml/min 05/05/2023 Assessment & Plan (05/05/2023 2:56 PM VOCAL ARTIST): Chronic, follows with nephrology. Follow up as scheduled. Hospital discharge follow-up 05/05/2023 Assessment & Plan (05/05/2023 2:56 PM VOCAL ARTIST): I, Comfort Kincaid NP have personally reviewed [...] 05/05/2023 Assessment & Plan (05/05/2023 2:57 PM VOCAL ARTIST): New problem, s/p total hip replacement. Home health ordered. Lives alone, needs help with transportation, ACO referral placed. Acute midline thoracic back pain 05/05/2023 Assessment & Plan (05/05/2023 2:58 PM VOCAL ARTIST): New problem since falling. X-rays were done at outside hospital but I have no records from the hospitalization. Pain is ongoing, requiring tramadol. Updated x-ray of thoracic and lumbar ordered to r/o compression fracture. Heart murmur 03/17/2023 Assessment & Plan (03/22/2024 11:54 AM VOCAL ARTIST): Had echocardiogram in March last year and no significant valvular heart disease and LV function was normal. Assessment & Plan (03/17/2023 8:28 PM VOCAL ARTIST): Schedule echocardiogram Weight loss 10/16/2022 Assessment & Plan (10/18/2022 9:19 PM CDT): New problem. Check CBC, TSH, CMP Fatigue 10/16/2022 Assessment & Plan (10/18/2022 9:20 PM CDT): New problem. Check CBC, TSH, CMP Dyspnea on exertion 10/16/2022 Assessment & Plan (03/22/2024 11:55 AM VOCAL ARTIST): If symptoms worsen then consider referral to [...] 02/13/2022 Assessment & Plan (06/08/2023 3:01 PM VOCAL ARTIST): Reviewed fall risk and fall assessment. Reviewed [...] 06/06/2021 Assessment & Plan (06/06/2021 11:13 AM VOCAL ARTIST): Longstanding right ht Pt denies signs and [...] 06/04/2020 Assessment & Plan (06/06/2021 11:17 AM VOCAL ARTIST): Continue retaine prn Posterior vitreous detachment of both eyes 06/04 Assessment & Plan (06/29/2024 1:39 PM CDT): Stable. Observe. The signs and symptoms of retinal detachment were reviewed. Advised urgent evaluation with any onset. Pseudophakia, both eyes 06/04/2020 Assessment & Plan (06/29/2024 1:39 PM CDT): Clear. Otc readers prn. Assessment & Plan (06/06/2021 11:16 AM VOCAL ARTIST): Lenses centered and stable, monitor Ptosis of left eyelid 06/04/2020 Assessment & Plan (06/29/2024 1:39 PM CDT): Offered surgical consult but pt elects observation Assessment & Plan (06/06/2021 12:30 PM VOCAL ARTIST): Stable, monitor Paresthesia 10/10/2019 Assessment & Plan (10/10/2019 12:42 PM CDT): Worsening problem. Refer to Neurology Body mass index (BMI) 19.9 or less, adult 2018 Assessment & Plan (06/08/2023 2:59 PM VOCAL ARTIST): Patient is thin, but healthy Assessment & [...] exercise. Assessment & Plan (04/27/2019 11:33 AM VOCAL ARTIST): Weight is stable and unchanged for patient. Assessment & Plan (02/01/2019 5:14 PM CDT): Patient is thin, but is healthy Grief 02/01/2019 Assessment & Plan (02/01/2019 5:16 PM CDT): This is related to her who has in November 2018. We discussed local measures to treat grief and bereavement. Advised to enlist help of family, friends and jewish. There are no signs or symptoms of major depression BMI 20.0-20.9, adult 10/27/2017 Assessment & Plan (03/17/2023 8:27 PM VOCAL ARTIST): Patient at healthy weight. Continue healthy diet- [...] 10/27/2017 Assessment & Plan (06/08/2023 3:00 PM VOCAL ARTIST): Continue current medications and call if problems [...] 07/21/2017 Assessment & Plan (06/08/2023 2:59 PM VOCAL ARTIST): Continue current medications and call if problems or side effects. Follow up with bone health Assessment & Plan (05/05/2023 2:56 PM VOCAL ARTIST): Chronic, on reclast. Continue to follow up with bone health Assessment & Plan (03/17/2023 8:27 PM VOCAL ARTIST): Check vitamin D level Assessment & Plan [...] 10/21/2016 Assessment & Plan (03/17/2023 8:28 PM VOCAL ARTIST): Reviewed fall risk and fall assessment. Patient [...] allergic rhinitis. Advised the patient to use [id number] antihistamine or yqbt-ipg-qkyrjtv nasal spray Medicare annual wellness visit, subsequent 10/20 Assessment & Plan (03/22/2024 11:26 AM VOCAL ARTIST): Plan as below Assessment & Plan (03/17/2023 8:29 PM VOCAL ARTIST): Patient here for annual Medicare wellness visit [...] NOS Assessment & Plan (06/08/2023 2:59 PM VOCAL ARTIST): Continue current medications. Continue low salt diet, home blood pressure checks and low salt diet. Avoid NSAIDs and decongestants which may raise blood pressure Assessment & Plan (05/05/2023 2:55 PM VOCAL ARTIST): Chronic, uncontrolled. Was started on hydralazine 12.5 mg TID while in the hospital. Amlodipine was restarted as well. She has peripheral edema historically with higher doses of amlodipine. Increase losartan to 100 mg daily, will need to follow up BMP to monitor her CKD. Will follow up in the office in 1 month. Assessment & Plan (03/17/2023 8:34 PM VOCAL ARTIST): Patient is stopping amlodipine due to peripheral [...] at home and will communicate readings via [employer]. She will call in 1 week with her blood pressure readings. EKG shows normal sinus rhythm with RSR normal variant. No acute changes. Assessment & Plan (10/27/2017 10:38 AM CDT): Continue current medications. Continue low salt diet and home blood pressure checks. Recommend regular exercise. Sciatica 08/26/2013 Overview (07/16/2016): SCIATICA Hyperlipidemia 08/26/2013 Overview (07/16/2016): HYPERLIPIDEMIA NEC/NOS Assessment & Plan (03/22/2024 11:25 AM VOCAL ARTIST): Continue strict low fat diet and regular exercise to lower cholesterol. Assessment & Plan (06/08/2023 3:01 PM VOCAL ARTIST): Continue strict low fat diet and regular exercise to lower cholesterol. Assessment & Plan (03/17/2023 8:29 PM VOCAL ARTIST): Continue strict low fat diet and regular [...] potential side effects of both meds medications. Immunizations Immunization Administration Dates Next Due -influenza, Quadrivalent, Split, Im 01/10/2018 Influenza, Quadrivalent, Hig h Dose, Preservative Free, Intrr 03/17/2023,02/03/2022,01/23/2021,12/28 Influenza, Split 02/08/2009 Influenza, Trivalent, Adjuva nted, Intramuscular 01/10/2018 Influenza, Trivalent, High D ose, Split, Preservative Free, Intramuscular 03/22/2024,02/01/2019,02/02/2017,03/07,04/30/2015,02/06/2015,01/21/2013 ,03/16/2011,03/12/2010 Influenza, Trivalent, IM (MDV) 01/25/2013,2011 Influenza, Unspecified 01/27/2017 Pneumococcal Conjugate PCV 13 10/08/2014 Pneumococcal Conjugate Pcv20 03/22/2024 Pneumococcal Polysaccharide PPV23 10/05/2008 Tdap 05/13/2010 ZOSTER LIVE 06/30/2011 Social History Tobacco Use Types Packs/Day Years Used Date Smoking Tobacco: Never Smokeless Tobacco: Never Alcohol Use Standard Drinks/Week Comments Yes 0 (1 standard drink = 0.6 oz pur e alcohol) rarely [employer] Utilities Answer Date Recorded In the past 12 months has [employer], [employer], or water [employer] threatened to shut off services in your [...] week 05/07/2023 How often do you attend [facility] or yarsanism services? More than 4 times per year 05/07/2023 Do you belong to any clubs o r organizations such as jewish groups, unions, fraternal or athletic groups, or [...] place to sleep or slept in a usp (including now)? No 05/07/2023 Comments No Sex and Gender Information Value Date Recorded Sex Assigned at Not on file Legal Sex Female 11:40 PM VOCAL ARTIST Gender Identity Female 02/10/2021 6:27 PM CDT Sexual Orientation Not on file Last Filed Vital Signs Vital Sign Reading Time Taken Comments Blood Pressure 142/80 03/22/2024 10:58 AM VOCAL ARTIST Pulse 66 03/22/2024 10:58 AM VOCAL ARTIST Temperature 37.1 C (98.8 F) 11/22/2023 12:37 PM CDT Respiratory Rate 20 11/22/2023 12:37 PM CDT Oxygen Saturation 95% 03/22/2024 10:58 AM VOCAL ARTIST Inhaled Oxygen Concentration - - Weight 48 kg (105 lb 12.8 oz) 03/22/2024 10:58 A M VOCAL ARTIST Height 154.3 cm (5' 0.75 ) 03/22/2024 10:[address] Body Mass Index 20.16 03/22/2024 10:58 AM VOCAL ARTIST Plan of Treatment Not on file Procedures Procedure Name Priority Date/Time Associated Diagnosis [...] Bone mineral density was performed on a HoloFormisimo Discovery Densitometer. Based on machine cross-calibration and [...] by the International Society of Clinical Densitometry. [id number] Dina Clinton [facility] DXA PROCEDURES Final Result from Last 3 Months or Most Recently Relevant to Health Maintenance Insurance MEDICARE [facility] MEDICARE BLUE CROSS MEDICARE SUPPLEMENT MEDICARE [facility] MEDICARE SUPPLEMENT Advance Directives For more information, please contact: [phone] Documents on File Type Date Recorded Patient Heading Saw Operator Expl anation ADVANCE DIRECTIVE 05/07/2019 ADVANCE DIRECTIVE 02/21/2019 Care Teams Mannequin Decorator Relationship Specialty Start Date End Date Faye Alvarado MD [address] [facility] [address] [place] [address] PCP - General 04/18/09 Beckie Ansari MD [address] [place] [address] Referring Physician Endocrinology Diabetes & Metabolism 02/01/19 Tyrell Alvarez MD [address] [place] [address] Referring Physician Orthopedic Surgery 02/01/19 Estella Robles MD [address] [facility] [address] [place] [address] Consulting Physician Dermatology 02/01/19 Colby Townsend, RACHNA [address] [address] Referring Physician Foot and Ankle Surg 02/01/19
--- OUTSIDE RECORDS SUMMARY | 2024-07-24 13:22 | XMS_ITS | Encounter Summary ---
Author Organization [facility] Address [facility] [facility] [place] [address] Care Team Providers Care Straddle Truck Driver Name Role Phone Unavailable Primary Care Provider Unavailabl e Encounter Details Date Type Department Care Team (Late st Contact Info) Description 05/31/2023 Lab Requisition [facility] DermPath Lab [address] [place] [address] Ira Casey MD [address] [facility] [address] [place] [address] Social History Tobacco Use Types Packs/Day Years Used Date Smoking Tobacco: Never Assessed Comments Unknown Sex and Gender Information Value Date Recorded Sex Assigned at Not on file Legal Sex Female 10:35 AM CDT Gender Identity Not on file Sexual Orientation Not on file documented as of this encounter Plan of Treatment Not on file documented as of this encounter Visit Diagnoses Not on filedocumented in this encounter
--- OUTSIDE RECORDS SUMMARY | 2024-07-24 13:22 | XMS_ITS | Clinical Summary ---
Author Organization [facility] Address [address] [place] [address] Care Team Providers Care Trans Router Name Role Phone Unavailable Primary Care Provider Unavailabl e Source Comments [facility],non-owned Affiliates and Associated Physician Practices is amultiple site organization consisting of ambulatory clinics and hospital sitesin [place], [place], [place] and [place]. This disclosure is being madepursuant to the Care Everywhere program and may not contain all information available regarding this patient. Last updated 17.[facility] Allergies No known active allergies Medications * Be aware that medications may not be up to date on this document. Alwaysverify current medications with the patient. amLODIPine (NORVASC) 5 MG tablet Take 1 tablet by mouth once daily 04/22/2020 Active traMADol (ULTRAM) 50 MG tablet Take 50 mg by mouth 07/31/2020 Active Social History Tobacco Use Types Packs/Day Years Used Date Smoking Tobacco: Never Assessed Comments Unknown Sex and Gender Information Value Date Recorded Sex Assigned at Not on file Legal Sex Female 10:35 AM CDT Gender Identity Not on file Sexual Orientation Not on file Last Filed Vital Signs Vital Sign Reading Time Taken Comments Blood Pressure - - Pulse - - Temperature - - Respiratory Rate - - Oxygen Saturation - - Inhaled Oxygen Concentration - - Weight 48.5 kg (107 lb) 08/19/2020 4:31 PM CDT Height 157.5 cm (5' 2 ) 08/19/2020 4:31 PM CDT Body Mass Index 19.57 08/19/2020 4:31 PM CDT Plan of Treatment Health Maintenance Due Date Last Done Comments BONE DENSITY TESTING 1940 MEDICARE AWV 12 MONTHS 1942 DTAP/TDAP/TD VACCINES (1 - Tdap) 1961 PNEUMOCOCCAL VACCINE 50+ (1 of 1 - PCV) 02/08/1992 ZOSTER VACCINE (1 of 2) 02/08/1992 Respiratory Syncytial Virus (RSV) Vaccine Pt: or over 60 yrs (1 - 1-dose 75+ series) 2017 COVID-19 VACCINE (1 - season) 2023 DEPRESSION SCREENING 04/12/2024 INFLUENZA VACCINE (Season Ended) 2024 12/29/2019, 02/01/2019, 01/10/2018, Additional history exists HEPATITIS B VACCINE Aged Out No longe r eligible based on patient's age to complete this topic HIB VACCINE Aged Out No longer eligi ble based on patient's age to complete this topic HPV VACCINE Aged Out No longer eligi ble based on patient's age to complete this topic MENINGOCOCCAL (Group B) VACCINE SHARED DECISION-MAKING Aged Out No longer eligible based on patient's age to complete this topic MENINGOCOCCAL GROUPS A/C/Y/W VACCINE Aged Out No longer eligible based on patient's age to complete this topic Insurance [employer] MEDICARE MEDICARE [employer]
[2024-07-24 14:30] LABS: Add Urine Microscopic? YES; Appearance Urine Clear (Clear); Bacteria Urine None Seen /hpf; Bilirubin Urine Negative (Negative); Blood Urine Negative (Negative); Color Urine Yellow (Yellow); Glucose Urine UA Negative (Negative); Ketones Urine Trace mg/dL (Negative); Leukocyte Esterase Ur 1+ LEU/UL (Negative); Nitrate Urine Negative (Negative); Non Pathogenic Casts 0-2; Protein Urine Trace mg/dL (Negative); RBC Urine 0-2 /hpf (0-2); Squamous Epithelial Cell Urine None Seen /hpf (Few); pH Urine 5.5 (5.0-9.0)
== END 2024-07-24 11:55 | disposition home or self-care (01) ==
PROVIDERS: Visit Provider Internal Medicine Nephrology
DX: I12.9 Hypertensive chronic kidney disease with stage 1 through stage 4 chronic kidney disease, or unspecified chronic kidney disease (principal); N18.2 Chronic kidney disease, stage 2 (mild); M19.90 Unspecified osteoarthritis, unspecified site
CPT/HCPCS: 36415; 80069; 81001; 85025

== ENCOUNTER 2024-08-31 00:28 | Day surgery (SDC) | payer MEDICARE, SELFPAY ==
[2024-08-23 15:47] VITALS: BMI 19.2
--- OUTSIDE RECORDS SUMMARY | 2024-08-31 00:31 | XMS_ITS | Encounter Summary ---
Author Organization [facility] Address [address] [place] [address] Care Team Providers Care Editor Map Name Role Phone Faye Alvarado MD Primary Care Pro vider Beckie Ansari MD Unavailable [phone] Tyrell Alvarez MD Unavailable [phone] Estella Robles MD Unavailable [phone] Colby TownsendM Unavailable [phone] Encounter Details Date Type Department Care Team (Latest Contact Info) Description 08/29/2024 11:44 AM CDT - 08/29/2024 11:59 PM CDT Hospital Encounter [id number] [place] [id number] Discharge Disposition: Discharge to home or self care Social History Tobacco Use Types Packs/Day Years Used Date Smoking Tobacco: Never Smokeless Tobacco: Never Alcohol Use Standard Drinks/Week Comments Yes 0 (1 standard drink = 0.6 oz pur e alcohol) rarely [facility] Utilities Answer Date Recorded In the past 12 months has [employer], gas, oil, or water company threatened to [...] week 05/07/2023 How often do you attend chur ch or scientology services? More than 4 times per year 05/07/2023 Do you belong to any clubs o r organizations such as mormonism groups, unions, fraternal or athletic groups, or [...] place to sleep or slept in a care home (including now)? No 05/07/2023 Comments No Sex and Gender Information Value Date Recorded Sex Assigned at Not on file Legal Sex Female 11:40 PM DATA SECURITY ADMINISTRATOR Gender Identity Female 02/10/2021 6:27 PM CDT Sexual Orientation Not on file documented as of this encounter Medications at Time of Discharge acetaminophen (TYLENOL) 500 mg tablet Take 1 tablet (500 mg total) by mouth every 6 (six) hours as needed for pain celecoxib (CeleBREX) 200 mg capsuleIndication s:Osteoarthritis Take 1 capsule (200 mg total) by mouth daily 90 capsule 3 04/21/2024 04/21/2025 hydrALAZINE (APRESOLINE) 50 mg tablet Take 1 tablet (50 mg total) by mouth every 8 (eight) hours 08/09/2024 losartan (COZAAR) 100 mg tablet Take 1 tablet by mouth once daily 90 tablet 3 06/06/2024 traMADoL (ULTRAM) 50 mg tablet Take 1 tablet (50 mg total) by mouth every 12 (twelve) hours as needed for pain for pain 60 tablet 5 06/06/2024 documented as of this encounter Discharge Disposition Disposition Code Departure Means Destination Discharge to home or self care documented in this encounter Plan of Treatment Not on file documented as of this encounter Visit Diagnoses Not on filedocumented in this encounter Care Teams Editor Map Relationship Specialty Start Date End Date Faye Alvarado MD [address] [facility] [address] [place] [address] PCP - General 04/18/09 Beckie Ansari MD [address] [place] [address] Referring Physician Endocrinology Diabetes & Metabolism 02/01/19 Tyrell Alvarez MD [address] [facility] [address] [place] [address] Referring Physician Orthopedic Surgery 02/01/19 Estella Robles MD [address] [facility] [address] [place] [address] Consulting Physician Dermatology 02/01/19 Colby Townsend DPM [address] [facility] [address] [place] [address] Referring Physician Foot and Ankle Surg 02/01/19 documented as of this encounter
--- OUTSIDE RECORDS SUMMARY | 2024-08-31 00:31 | XMS_ITS | Encounter Summary ---
Author Organization [facility] Healthcare Address [address] [place] [address] Care Team Providers Care Regional Clinical Director Name Role Phone Faye Alvarado MD Primary Care Pro vider Beckie Ansari MD Unavailable [phone] Tyrell Alvarez MD Unavailable [phone] Estella Robles MD Unavailable [phone] Colby TownsendM Unavailable [phone] Reason for Referral * Diagnostic Imaging (Routine) - Closed Specialty Diagnoses / Procedures Referred By Eliecer arshad Referred To Contact Diagnoses Arthralgia, unspecified joint Primary generalized (osteo)arthritis Age-related osteoporosis with current pathological fracture with routine healing Procedures XR Hand Right 2 Views Serena Steele MD [address] [facility] [address] [place] [address] Phone: tel: fax: [facility] [address] [place] [address] Referral ID Status Reason Start Date Expiration Date Visits Re quested Visits Authorized [id number] Closed 08/29/2024 09/28/2025 1 1 * Diagnostic Imaging (Routine) - Closed Specialty Diagnoses / Procedures Referred By Contac t Referred To Contact Diagnoses Arthralgia, unspecified joint Primary generalized (osteo)arthritis Age-related osteoporosis with current pathological fracture with routine healing Procedures XR Hand Left 2 Views Serena Steele MD [address] [facility] [address] [address] Phone: tel: fax: [address] [phone] Referral ID Status Reason Start Date Expiration Date Visits Re quested Visits Authorized [id number] Closed 08/29/2024 09/28/2025 1 1 Reason for Visit * Diagnostic Imaging (Routine) - Closed Specialty Diagnoses / Procedures Referred By Eliecer arshad Referred To Contact Diagnoses Arthralgia, unspecified joint Primary generalized (osteo)arthritis Age-related osteoporosis with current pathological fracture with routine healing Procedures XR Hand Left 2 Views Serena Steele MD [address] [address] Phone: tel: fax: [address] [phone] Referral ID Status Reason Start Date Expiration Date Visits Re quested Visits Authorized [id number] Closed 08/29/2024 09/28/2025 1 1 Encounter Details Date Type Department Care Team (Late st Contact Info) Description 08/29/2024 11:06 AM CDT - 08/29/2024 11:59 PM CDT Hospital Encounter [facility] - Imaging [address] [place] [address] Serena Steele MD [address] [facility] [address], [place] [address] Arthralgia, unspecified joint; Primary generalized (osteo)arthritis; Age-related osteoporosis with current pathological fracture with routine healing Discharge Disposition: Discharge to home or self care Social History Tobacco Use Types Packs/Day Years Used Date Smoking Tobacco: Never Smokeless Tobacco: Never Alcohol Use Standard Drinks/Week Comments Yes 0 (1 standard drink = 0.6 oz pur e alcohol) rarely [facility] Utilities Answer Date Recorded In [...] week 05/07/2023 How often do you attend [facility] or caodaism services? More than 4 times per year 05/07/2023 Do you belong to any clubs o r organizations such as episcopal groups, unions, fraternal or athletic groups, or [...] place to sleep or slept in a intermediate (including now)? No 05/07/2023 Comments No Sex and Gender Information Value Date Recorded Sex Assigned at Not on file Legal Sex Female 11:40 PM [employer] Gender Identity Female 02/10/2021 6:27 PM CDT [...] on file documented as of this encounter Procedures Procedure Name Priority Date/Time Associated Diagnosis Comments XR HAND RIGHT 2 VIEWS Routine 08/29/2024 11:28 AM CDT Arthralgia, unspecified joint Primary generalized (osteo)arthritis Age-related osteoporosis with current pathological fracture with routine healing XR HAND LEFT 2 VIEWS Routine 08/29/2024 11:28 AM CDT Arthralgia, unspecified joint Primary generalized (osteo)arthritis Age-related osteoporosis with current pathological fracture with routine healing XR CHEST PA LATERAL 2 VIEWS Routine 08/29/2024 11:28 AM CDT Arthralgia, unspecified joint Primary generalized (osteo)arthritis Age-related osteoporosis with current pathological fracture with routine healing documented in this encounter Results * XR Chest Pa Lateral 2 Views (08/29/2024 11:28 AM CDT) Anatomical Region Laterality Modality Body, Chest N/A Computed Radiogr aphy 08/29/2024 11:5 7 AM CDT Impressions 08/29/2024 11:57 AM CDT 1. Negative chest radiograph. COMMENT: Please see above for additional findings. Electronically signed by: Milton Abdalla M.D. Narrative 08/29/2024 11:57 AM CDT XR CHEST PA LATERAL 2 VIEWS HISTORY: Dyspnea, arthralgia COMPARISON: None available A chest radiograph in the PA and lateral projection was presented. FINDINGS: There is no evidence of pneumothorax. Multilevel degenerative disc disease is noted in the mid and lower thoracic spine. Transpedicular screws are also noted at multiple levels in the lumbar spine The mediastinum and zane within expected limits. The cardiac silhouette within normal size limits. The lateral and posterior costophrenic angles are preserved bilaterally. No definite infiltrates, suspicious opacities or abnormal interstitial markings are appreciated. The included portion of the upper abdomen is within expected limits. Procedure Note Milton Abdalla MD - 08/29/2024 XR CHEST PA LATERAL 2 VIEWS HISTORY: Dyspnea, arthralgia COMPARISON: None available A chest radiograph in the PA and lateral projection was presented. FINDINGS: There is no evidence of pneumothorax. Multilevel degenerative disc disease is noted in the mid and lower thoracic spine. Transpedicular screws are also noted at multiple levels in the lumbar spine The mediastinum and zane within expected limits. The cardiac silhouette within normal size limits. The lateral and posterior costophrenic angles are preserved bilaterally. No definite infiltrates, suspicious opacities or abnormal interstitial markings are appreciated. The included portion of the upper abdomen is within expected limits. IMPRESSION: 1. Negative chest radiograph. COMMENT: Please see above for additional findings. Electronically signed by: Milton Abdalla M.D. Serena Steele MD IMG XR PROCEDURES Final Result * XR Hand Right 2 Views (08/29/2024 11:28 AM CDT) Anatomical Region Laterality Modality Upper Extremities, Hand Right Computed Radiography 08/30/2024 3:33 PM CDT Impressions 08/30/2024 3:33 PM CDT 1. Advanced osteoarthritis as discussed above. Some sites demonstrate features of erosive osteoarthritis. Clinical correlation is requested. There does not appear to be significant interval change compared to 01/23/2022. COMMENT: Please see above for additional findings. XR HAND LEFT 2 VIEWS, XR HAND RIGHT 2 VIEWS HISTORY: hand pain, OA COMPARISON: None available. FINDINGS: There is no evidence of fracture, stress fracture or dislocation. Advanced osteoarthritis similar to the opposite side is noted in the right hand. There is a marked deformity of the 2nd through 5th distal interphalangeal joints as well as the 2nd 3rd and 5th proximal interphalangeal joints which have features which suggest erosive osteoarthritis. There is also marked disease noted in the 1st carpometacarpal metacarpophalangeal and interphalangeal joints. Marked degenerative disease is noted in the scaphotrapeziotrapezoid joints. There is also asymmetric narrowing of the 3rd and 4th metacarpophalangeal joints. The remainder of the examination is within expected limits. IMPRESSION: 1. Advanced osteoarthritis involving the interphalangeal joints as well as the 1st carpometacarpal joint and scaphotrapeziotrapezoid joints. Some of the joints demonstrate features of erosive osteoarthritis. No comparison studies are available. COMMENT: Please see above for additional findings. Electronically signed by: Milton Abdalla M.D. Narrative 08/30/2024 3:33 PM CDT XR HAND LEFT 2 VIEWS, XR HAND RIGHT 2 VIEWS HISTORY: Arthralgia, hand pain, primary generalized osteoarthritis COMPARISON: Left hand at 1422 FINDINGS: There is no evidence of fracture, stress fracture or dislocation. There is noted severe deformity of the 1st carpometacarpal joint subluxation and severe degenerative joint disease. There is also noted marked deformity of the 2nd through 5th distal interphalangeal joints as well as the 2nd proximal interphalangeal joint. Marked disease is also noted in the 1st interphalangeal joint. Marked degenerative joint disease is noted in the 2nd 3rd and 5th proximal interphalangeal joint. Marked degenerative joint disease is noted in the scaphotrapeziotrapezoid joints. Additional sites of lesser degenerative joint disease are present. There are is noted deformity of the 2nd 3rd and 4th distal interphalangeal joints and the 2nd proximal interphalangeal joint which suggests the gullwing appearance of erosive osteoarthritis. The remainder of the examination is within expected limits. Procedure Note Rm, Milton Hutchinson MD - 08/30/2024 XR HAND LEFT 2 VIEWS, XR HAND RIGHT 2 VIEWS HISTORY: Arthralgia, hand pain, primary generalized osteoarthritis COMPARISON: Left hand at 1422 FINDINGS: There is no evidence of fracture, stress fracture or dislocation. There is noted severe deformity of the 1st carpometacarpal joint subluxation and severe degenerative joint disease. There is also noted marked deformity of the 2nd through 5th distal interphalangeal joints as well as the 2nd proximal interphalangeal joint. Marked disease is also noted in the 1st interphalangeal joint. Marked degenerative joint disease is noted in the 2nd 3rd and 5th proximal interphalangeal joint. Marked degenerative joint disease is noted in the scaphotrapeziotrapezoid joints. Additional sites of lesser degenerative joint disease are present. There are is noted deformity of the 2nd 3rd and 4th distal interphalangeal joints and the 2nd proximal interphalangeal joint which suggests the gullwing appearance of erosive osteoarthritis. The remainder of the examination is within expected limits. IMPRESSION: 1. Advanced osteoarthritis as discussed above. Some sites demonstrate features of erosive osteoarthritis. Clinical correlation is requested. There does not appear to be significant interval change compared to 01/23/2022. COMMENT: Please see above for additional findings. XR HAND LEFT 2 VIEWS, XR HAND RIGHT 2 VIEWS HISTORY: hand pain, OA COMPARISON: None available. FINDINGS: There is no evidence of fracture, stress fracture or dislocation. Advanced osteoarthritis similar to the opposite side is noted in the right hand. There is a marked deformity of the 2nd through 5th distal interphalangeal joints as well as the 2nd 3rd and 5th proximal interphalangeal joints which have features which suggest erosive osteoarthritis. There is also marked disease noted in the 1st carpometacarpal metacarpophalangeal and interphalangeal joints. Marked degenerative disease is noted in the scaphotrapeziotrapezoid joints. There is also asymmetric narrowing of the 3rd and 4th metacarpophalangeal joints. The remainder of the examination is within expected limits. IMPRESSION: 1. Advanced osteoarthritis involving the interphalangeal joints as well as the 1st carpometacarpal joint and scaphotrapeziotrapezoid joints. Some of the joints demonstrate features of erosive osteoarthritis. No comparison studies are available. COMMENT: Please see above for additional findings. Electronically signed by: Milton Abdalla M.D. Serena Steele MD IMG XR PROCEDURES Final Result * XR Hand Left 2 Views (08/29/2024 11:28 AM CDT) Anatomical Region Laterality Modality Upper Extremities, Hand Left Computed Radiography 08/30/2024 3:33 PM CDT Impressions 08/30/2024 3:33 PM CDT 1. Advanced osteoarthritis as discussed above. Some sites demonstrate features of erosive osteoarthritis. Clinical correlation is requested. There does not appear to be significant interval change compared to 01/23/2022. COMMENT: Please see above for additional findings. XR HAND LEFT 2 VIEWS, XR HAND RIGHT 2 VIEWS HISTORY: hand pain, OA COMPARISON: None available. FINDINGS: There is no evidence of fracture, stress fracture or dislocation. Advanced osteoarthritis similar to the opposite side is noted in the right hand. There is a marked deformity of the 2nd through 5th distal interphalangeal joints as well as the 2nd 3rd and 5th proximal interphalangeal joints which have features which suggest erosive osteoarthritis. There is also marked disease noted in the 1st carpometacarpal metacarpophalangeal and interphalangeal joints. Marked degenerative disease is noted in the scaphotrapeziotrapezoid joints. There is also asymmetric narrowing of the 3rd and 4th metacarpophalangeal joints. The remainder of the examination is within expected limits. IMPRESSION: 1. Advanced osteoarthritis involving the interphalangeal joints as well as the 1st carpometacarpal joint and scaphotrapeziotrapezoid joints. Some of the joints demonstrate features of erosive osteoarthritis. No comparison studies are available. COMMENT: Please see above for additional findings. Electronically signed by: Milton Abdalla M.D. Narrative 08/30/2024 3:33 PM CDT XR HAND LEFT 2 VIEWS, XR HAND RIGHT 2 VIEWS HISTORY: Arthralgia, hand pain, primary generalized osteoarthritis COMPARISON: Left hand at 1422 FINDINGS: There is no evidence of fracture, stress fracture or dislocation. There is noted severe deformity of the 1st carpometacarpal joint subluxation and severe degenerative joint disease. There is also noted marked deformity of the 2nd through 5th distal interphalangeal joints as well as the 2nd proximal interphalangeal joint. Marked disease is also noted in the 1st interphalangeal joint. Marked degenerative joint disease is noted in the 2nd 3rd and 5th proximal interphalangeal joint. Marked degenerative joint disease is noted in the scaphotrapeziotrapezoid joints. Additional sites of lesser degenerative joint disease are present. There are is noted deformity of the 2nd 3rd and 4th distal interphalangeal joints and the 2nd proximal interphalangeal joint which suggests the gullwing appearance of erosive osteoarthritis. The remainder of the examination is within expected limits. Procedure Note Milton Abdalla MD - 08/30/2024 XR HAND LEFT 2 VIEWS, XR HAND RIGHT 2 VIEWS HISTORY: Arthralgia, hand pain, primary generalized osteoarthritis COMPARISON: Left hand at 1422 FINDINGS: There is no evidence of fracture, stress fracture or dislocation. There is noted severe deformity of the 1st carpometacarpal joint subluxation and severe degenerative joint disease. There is also noted marked deformity of the 2nd through 5th distal interphalangeal joints as well as the 2nd proximal interphalangeal joint. Marked disease is also noted in the 1st interphalangeal joint. Marked degenerative joint disease is noted in the 2nd 3rd and 5th proximal interphalangeal joint. Marked degenerative joint disease is noted in the scaphotrapeziotrapezoid joints. Additional sites of lesser degenerative joint disease are present. There are is noted deformity of the 2nd 3rd and 4th distal interphalangeal joints and the 2nd proximal interphalangeal joint which suggests the gullwing appearance of erosive osteoarthritis. The remainder of the examination is within expected limits. IMPRESSION: 1. Advanced osteoarthritis as discussed above. Some sites demonstrate features of erosive osteoarthritis. Clinical correlation is requested. There does not appear to be significant interval change compared to 01/23/2022. COMMENT: Please see above for additional findings. XR HAND LEFT 2 VIEWS, XR HAND RIGHT 2 VIEWS HISTORY: hand pain, OA COMPARISON: None available. FINDINGS: There is no evidence of fracture, stress fracture or dislocation. Advanced osteoarthritis similar to the opposite side is noted in the right hand. There is a marked deformity of the 2nd through 5th distal interphalangeal joints as well as the 2nd 3rd and 5th proximal interphalangeal joints which have features which suggest erosive osteoarthritis. There is also marked disease noted in the 1st carpometacarpal metacarpophalangeal and interphalangeal joints. Marked degenerative disease is noted in the scaphotrapeziotrapezoid joints. There is also asymmetric narrowing of the 3rd and 4th metacarpophalangeal joints. The remainder of the examination is within expected limits. IMPRESSION: 1. Advanced osteoarthritis involving the interphalangeal joints as well as the 1st carpometacarpal joint and scaphotrapeziotrapezoid joints. Some of the joints demonstrate features of erosive osteoarthritis. No comparison studies are available. COMMENT: Please see above for additional findings. Electronically signed by: Milton Abdalla M.D. Serena Steele MD IMG XR PROCEDURES Final Result documented in this encounter Visit Diagnoses Diagnosis Arthralgia, unspecified joint Primary generalized (osteo)arthritis Age-related osteoporosis with current pathological fracture with routine healing documented in this encounter Care Teams Regional Clinical Director Relationship Specialty Start Date End Date Faye Alvarado MD [address] [place] [address] PCP - General 04/18/09 Beckie Ansari MD [address] [facility] [address] [place] [address] Referring Physician Endocrinology Diabetes & Metabolism 02/01/19 Tyrell Alvarez MD [address] [facility] [address] [place] [address] Referring Physician Orthopedic Surgery 02/01/19 Estella Robles MD [address] [facility] [address] [address] Consulting Physician Dermatology 02/01/19 Colby Townsend DPM [address] [facility] [address] [address] Referring Physician Foot and Ankle Surg 02/01/19 documented as of this encounter
--- OUTSIDE RECORDS SUMMARY | 2024-08-31 00:31 | XMS_ITS | Referral Summary ---
Author Organization [facility] Address [address] [place] [id number] Care Team Providers Care Maritime Pilot Name Role Phone Faye Alvarado MD Primary Care Pro vider Beckie Ansari MD Unavailable Tyrell Alvarez MD Unavailable [phone] Estella Robles MD Unavailable [phone] Colby Townsend DPM Unavailable [phone] Encounters Date Type Department Care Team Description 08/29/2024 11:44 AM CDT - 08/29/2024 11:59 PM CDT Hospital Encounter [address] [phone] Discharge Disposition: Discharge to home or self care 08/29/2024 11:06 AM CDT - 08/29/2024 11:59 PM CDT Hospital Encounter [facility] - Imaging [address] [place] [phone] Serena Steele MD Arthralgia, unspecified joint; Primary generalized (osteo)arthritis; Age-related osteoporosis with current pathological fracture with routine healing Discharge Disposition: Discharge to home or self care 08/29/2024 10:00 AM CDT Office Visit [facility] Rhe[facility]ology at [address] [place] [phone] Serena Steele MD Arthralgia, unspecified joint (Primary Dx); Primary generalized (osteo)arthritis; Age-related osteoporosis with current pathological fracture with routine healing 06/29/2024 1:00 PM CDT Office Visit [facility] [address] [place] [address] Tyrell Miranda, OD Ptosis of left eyelid (Primary Dx); Posterior vitreous detachment of both eyes; Pseudophakia, both eyes 06/16/2024 Telephone [facility] [address] [facility] [address] [place] [address] Maria Eugenia Scruggs, ROSALIND from Last 3 Months Allergies No known [...] once daily 90 tablet 3 06/06/2024 Active hydrALAZINE (APRESOLINE) 50 mg tablet Take 1 tablet (50 mg total) by mouth every 8 (eight) hours 08/09/2024 Active Active Problems Problem Noted Date Diagnosed Date Arthralgia 03/22/2024 Assessment & Plan (03/22/2024 11:28 AM ICE RINK ATTENDANT): Bilateral hip, hand, wrist, knee pain and lower back pain- refer to rheumatology to evaluate for inflammatory arthritis. Age-related osteoporosis wit samy current pathological fracture 12/03/2023 Assessment & Plan (03/22/2024 11:26 AM ICE RINK ATTENDANT): Check vitamin D. Patient will get labs and then start iv reclast per bone health, Dina Clinton NP CKD (chronic kidney disease) stage 3, GFR 30-59 ml/min 05/05/2023 Assessment & Plan (05/05/2023 2:56 PM ICE RINK ATTENDANT): Chronic, follows with nephrology. Follow up as scheduled. Hospital discharge follow-up 05/05/2023 Assessment & Plan (05/05/2023 2:56 PM ICE RINK ATTENDANT): I, Comfort Kincaid NP have personally reviewed [...] 05/05/2023 Assessment & Plan (05/05/2023 2:57 PM ICE RINK ATTENDANT): New problem, s/p total hip replacement. Home health ordered. Lives alone, needs help with transportation, ACO referral placed. Acute midline thoracic back pain 05/05/2023 Assessment & Plan (05/05/2023 2:58 PM ICE RINK ATTENDANT): New problem since falling. X-rays were done at outside hospital but I have no records from the hospitalization. Pain is ongoing, requiring tramadol. Updated x-ray of thoracic and lumbar ordered to r/o compression fracture. Heart murmur 03/17/2023 Assessment & Plan (03/22/2024 11:54 AM ICE RINK ATTENDANT): Had echocardiogram in March last year and no significant valvular heart disease and LV function was normal. Assessment & Plan (03/17/2023 8:28 PM ICE RINK ATTENDANT): Schedule echocardiogram Weight loss 10/16/2022 Assessment & Plan (10/18/2022 9:19 PM CDT): New problem. Check CBC, TSH, CMP Fatigue 10/16/2022 Assessment & Plan (10/18/2022 9:20 PM CDT): New problem. Check CBC, TSH, CMP Dyspnea on exertion 10/16/2022 Assessment & Plan (03/22/2024 11:55 AM ICE RINK ATTENDANT): If symptoms worsen then consider referral to [...] 02/13/2022 Assessment & Plan (06/08/2023 3:01 PM ICE RINK ATTENDANT): Reviewed fall risk and fall assessment. Reviewed [...] 06/06/2021 Assessment & Plan (06/06/2021 11:13 AM ICE RINK ATTENDANT): Longstanding right ht Pt denies signs and [...] 06/04/2020 Assessment & Plan (06/06/2021 11:17 AM ICE RINK ATTENDANT): Continue retaine prn Posterior vitreous detachment of both eyes 06/04 Assessment & Plan (06/29/2024 1:39 PM CDT): Stable. Observe. The signs and symptoms of retinal detachment were reviewed. Advised urgent evaluation with any onset. Pseudophakia, both eyes 06/04/2020 Assessment & Plan (06/29/2024 1:39 PM CDT): Clear. Otc readers prn. Assessment & Plan (06/06/2021 11:16 AM ICE RINK ATTENDANT): Lenses centered and stable, monitor Ptosis of left eyelid 06/04/2020 Assessment & Plan (06/29/2024 1:39 PM CDT): Offered surgical consult but pt elects observation Assessment & Plan (06/06/2021 12:30 PM ICE RINK ATTENDANT): Stable, monitor Paresthesia 10/10/2019 Assessment & Plan (10/10/2019 12:42 PM CDT): Worsening problem. Refer to Neurology Body mass index (BMI) 19.9 or less, adult 2018 Assessment & Plan (06/08/2023 2:59 PM ICE RINK ATTENDANT): Patient is thin, but healthy Assessment & [...] exercise. Assessment & Plan (04/27/2019 11:33 AM ICE RINK ATTENDANT): Weight is stable and unchanged for patient. Assessment & Plan (02/01/2019 5:14 PM CDT): Patient is thin, but is healthy Grief 02/01/2019 Assessment & Plan (02/01/2019 5:16 PM CDT): This is related to her who has in November 2018. We discussed local measures to treat grief and bereavement. Advised to enlist help of family, friends and yarsanism. There are no signs or symptoms of major depression BMI 20.0-20.9, adult 10/27/2017 Assessment & Plan (03/17/2023 8:27 PM ICE RINK ATTENDANT): Patient at healthy weight. Continue healthy diet- [...] 10/27/2017 Assessment & Plan (06/08/2023 3:00 PM ICE RINK ATTENDANT): Continue current medications and call if problems [...] 07/21/2017 Assessment & Plan (06/08/2023 2:59 PM ICE RINK ATTENDANT): Continue current medications and call if problems or side effects. Follow up with bone health Assessment & Plan (05/05/2023 2:56 PM ICE RINK ATTENDANT): Chronic, on reclast. Continue to follow up with bone health Assessment & Plan (03/17/2023 8:27 PM ICE RINK ATTENDANT): Check vitamin D level Assessment & Plan [...] 10/21/2016 Assessment & Plan (03/17/2023 8:28 PM ICE RINK ATTENDANT): Reviewed fall risk and fall assessment. Patient [...] allergic rhinitis. Advised the patient to use xgnj-wqp-saclntz antihistamine or rsjl-ouc-hiiarev nasal spray Medicare annual wellness visit, subsequent 10/20 Assessment & Plan (03/22/2024 11:26 AM ICE RINK ATTENDANT): Plan as below Assessment & Plan (03/17/2023 8:29 PM ICE RINK ATTENDANT): Patient here for annual Medicare wellness visit [...] NOS Assessment & Plan (06/08/2023 2:59 PM ICE RINK ATTENDANT): Continue current medications. Continue low salt diet, home blood pressure checks and low salt diet. Avoid NSAIDs and decongestants which may raise blood pressure Assessment & Plan (05/05/2023 2:55 PM ICE RINK ATTENDANT): Chronic, uncontrolled. Was started on hydralazine 12.5 mg TID while in the hospital. Amlodipine was restarted as well. She has peripheral edema historically with higher doses of amlodipine. Increase losartan to 100 mg daily, will need to follow up BMP to monitor her CKD. Will follow up in the office in 1 month. Assessment & Plan (03/17/2023 8:34 PM ICE RINK ATTENDANT): Patient is stopping amlodipine due to peripheral [...] at home and will communicate readings via [employer]. She will call in 1 week with her blood pressure readings. EKG shows normal sinus rhythm with RSR normal variant. No acute changes. Assessment & Plan (10/27/2017 10:38 AM CDT): Continue current medications. Continue low salt diet and home blood pressure checks. Recommend regular exercise. Sciatica 08/26/2013 Overview (07/16/2016): SCIATICA Hyperlipidemia 08/26/2013 Overview (07/16/2016): HYPERLIPIDEMIA NEC/NOS Assessment & Plan (03/22/2024 11:25 AM ICE RINK ATTENDANT): Continue strict low fat diet and regular exercise to lower cholesterol. Assessment & Plan (06/08/2023 3:01 PM ICE RINK ATTENDANT): Continue strict low fat diet and regular exercise to lower cholesterol. Assessment & Plan (03/17/2023 8:29 PM ICE RINK ATTENDANT): Continue strict low fat diet and regular [...] medications. Immunizations Immunization Administration Dates Next Due 29-influenza, [...] Date Smoking Tobacco: Never Smokeless Tobacco: Never Tobacco Cessation:Counseling Given: Not Answered Alcohol Use Standard Drinks/Week Comments Yes 0 (1 standard drink = 0.6 oz pur e alcohol) rarely [facility] Utilities Answer Date Recorded In the past 12 months has [email or web address], oil, or water [employer] threatened to shut off services in your [...] week 05/07/2023 How often do you attend [facility] or judaism services? More than 4 times per year 05/07/2023 Do you belong to any clubs o r organizations such as yarsanism groups, unions, fraternal or athletic groups, or [...] on file Legal Sex Female 11:40 PM ICE RINK ATTENDANT Gender Identity Female 02/10/2021 6:27 PM CDT Sexual Orientation Not on file Last Filed Vital Signs Vital Sign Reading Time Taken Comments Blood Pressure 124/78 08/29/2024 10:08 AM CDT Pulse 77 08/29/2024 10:08 AM CDT Temperature 37.1 C (98.8 F) 11/22/2023 12:37 PM CDT Respiratory Rate 20 11/22/2023 12:37 PM CDT Oxygen Saturation 98% 08/29/2024 10:08 AM CDT Inhaled Oxygen Concentration - - Weight 46.7 kg (103 lb) 08/29/2024 10:08 AM CDT Height 154.3 cm (5' 0.75 ) 08/29/2024 10:08 AM C DT Body Mass Index 19.62 08/29/2024 10:08 AM CDT Plan of Treatment Not on file Procedures Procedure Name Priority Date/Time Associated Diagnosis Comments XR CHEST PA LATERAL 2 VIEWS Routine 08/29/2024 11:28 AM CDT Arthralgia, unspecified joint Primary generalized (osteo)arthritis Age-related osteoporosis with current pathological fracture with routine healing XR HAND RIGHT 2 VIEWS Routine 08/29/2024 11:28 AM CDT Arthralgia, unspecified joint Primary generalized (osteo)arthritis Age-related osteoporosis with current pathological fracture with routine healing XR HAND LEFT 2 VIEWS Routine 08/29/2024 11:28 AM CDT Arthralgia, unspecified joint Primary generalized (osteo)arthritis Age-related osteoporosis with current pathological fracture with routine healing EGFR Routine 08/29/2024 10:56 AM CDT Arthralgia, unspecified joint Primary generalized (osteo)arthritis Age-related osteoporosis with current pathological fracture with routine healing DIFFERENTIAL AUTO Routine 08/29/2024 10: 56 AM CDT Arthralgia, unspecified joint Primary generalized (osteo)arthritis Age-related osteoporosis with current pathological fracture with routine healing CBC WITH AUTO DIFFERENTIAL Routine 08/29/2024 10:56 AM CDT Arthralgia, unspecified joint Primary generalized (osteo)arthritis Age-related osteoporosis with current pathological fracture with routine healing COMPREHENSIVE METABOLIC PANEL Routine 08/29/2024 10:56 AM CDT Arthralgia, unspecified joint Primary generalized (osteo)arthritis Age-related osteoporosis with current pathological fracture with routine healing CYCLIC CITRUL PEPTIDE ANTIBODY, IGG Routine 08/29/2024 10:56 AM CDT Arthralgia, unspecified joint Primary generalized (osteo)arthritis Age-related osteoporosis with current pathological fracture with routine healing RHEUMATOID FACTOR Routine 08/29/2024 10: 56 AM CDT Arthralgia, unspecified joint Primary generalized (osteo)arthritis Age-related osteoporosis with current pathological fracture with routine healing DEXA TBS AXIAL SKELETON BONE DENSITY 1 OR MORE SITES Schedule Routine, Read Routine (OP Routine) 12/03/2023 2:02 PM CDT Age-related osteoporosis without current pathological fracture from Last 3 Months or Most Recently Relevant to Health Maintenance Results * XR Hand Right 2 Views (08/29/2024 [...] findings. Electronically signed by: Milton Abdalla M.D. us Serena Steele MD IMG XR PROCEDURES Final [...] IMG XR PROCEDURES Final Result * XR Chest Pa Lateral 2 Views [...] MD IMG XR PROCEDURES Final Result * eGFR (08/29/2024 10:56 AM CDT) eGFR 65 >=60 mL/min/1. 73 m2 Comment: Interpretive Data Reference Interval Normal >/= 90 mL/min/1.73m2 Mildly decreased* 60 - 89 mL/min/1.73m2 Mildly to moderately decreased 45 - 59 mL/min/1.73m2 Moderately to severely decreased 30 - 44 mL/min/1.73m2 Severely decreased 15 - 29 mL/min/1.73m2 Kidney Failure < 15 mL/min/1.73m2 *Relative to young adult level Estimated glomerular filtration rate is determined by the 2020 CKD-EPI equation recommended by the National Kidney Foundation (A Unifying Approach to GFR Estimation: Recommendations of the NKF-ASK Task Force on Reassessing the Inclusion of Race in Diagnosing Kidney Disease, JASN 2020). The CKD-EPI equation should not be used for patients with unstable renal function and has not been validated in children and those over 70. Current interpretive data was last reviewed 2021. Blood 08/29/2024 10:5 6 AM CDT 08/29/2024 12:55 PM CDT us Serena Steele MD LAB BLOOD ORDERABL ES Final Result [facility] [address] Department [place] [address] * (ABNORMAL) Differential, auto (08/29/2024 10:56 AM CDT) Neutrophil abs 4.97 1.50 - 6.50 K/cumm Imm gran abs 0.02 0.00 - 0.10 K/cumm [facility] Lymphocyte abs 0.45(L) 0.80 - 3.30 K/cumm [facility] Monocyte abs 0.54 0.20 - 0.80 K/cumm [facility] Eosinophil abs 0.07 0.00 - 0.50 K/cumm [facility] Basophil abs 0.05 0.00 - 0.10 K/cumm [facility] Neutrophil pct 81.5 % [facility] Comment: Interpretive Data Percent cell count reference ranges are not reported, since discordance with absolute values may lead to misinterpretation of CBC data. Current Interpretive Data was last revised on 2017. Imm gran pct 0.3 % [facility] Comment: Interpretive Data Percent cell count reference ranges are not reported, since discordance with absolute values may lead to misinterpretation of CBC data. Current Interpretive Data was last revised on 2017. Lymphocyte pct 7.4 % [facility] Comment: Interpretive Data Percent cell count reference ranges are not reported, since discordance with absolute values may lead to misinterpretation of CBC data. Current Interpretive Data was last revised on 2017. Monocyte pct 8.9 % [facility] Comment: Interpretive Data Percent cell count reference ranges are not reported, since discordance with absolute values may lead to misinterpretation of CBC data. Current Interpretive Data was last revised on 2017. Eosinophil pct 1.1 % [facility] Comment: Interpretive Data Percent cell count reference ranges are not reported, since discordance with absolute values may lead to misinterpretation of CBC data. Current Interpretive Data was last revised on 2017. Basophil pct 0.8 % [facility] Comment: Interpretive Data Percent cell count reference ranges are not reported, since discordance with absolute values may lead to misinterpretation of CBC data. Current Interpretive Data was last revised on 2017. Blood 08/29/2024 10:5 6 AM CDT 08/29/2024 12:55 PM CDT us Serena Steele MD LAB BLOOD ORDERABL ES Final Result [facility] [address] Department [place] [address] * (ABNORMAL) CBC with auto differential (08/29/2024 10:56 AM CDT) WBC 6.10 3.80 - 9.90 K/cumm Hgb 13.4 11.9 - 15.5 g/dL [facility] Hct 41.7 35.6 - 45.5 % [facility] Plt 201 150 - 400 K/cumm [facility] MPV 9.9 9.1 - 12.3 fL [facility] RBC 4.46 3.90 - 5.20 M/cumm [facility] MCV 93.5 81.3 - 96.4 fL [facility] MCH 30.0 27.1 - 33.3 pg [facility] MCHC 32.1(L) 32.3 - 35.7 g/dL [facility] RDW CV 13.5 11.1 - 14.9 % [facility] RDW SD 46.5 35.7 - 48.1 fL [facility] NRBC abs 0.00 0.00 - 0.01 K/cumm [facility] Blood 08/29/2024 10:5 6 AM CDT 08/29/2024 12:55 PM CDT us Serena Steele MD LAB BLOOD ORDERABL ES Final Result Performing Organization Address [facility] Co de Phone Number [facility] [address] Department [place] [address] * Cyclic citrul peptide antibody, IgG (08/29/2024 10:56 AM CDT) Pathologist [facility] CCP Ab <0.5 <=2.9 units/mL Comment: Interpretive data Negative: <3 units/mL Positive: > or equal to 3 units/mL Current interpretive data was last revised on 2016. Testing performed by: [facility], [address] [place] [address]., [id number] Blood 08/29/2024 10:5 6 AM CDT 08/29/2024 4:31 PM CDT Serena Steele MD LAB BLOOD ORDERABL ES Final Result Performing Organization Address [facility] Co de Phone Number [facility] [address] Department [place] [address] * Rheumatoid factor (08/29/2024 10:56 AM CDT) [facility] Rheumatoid factor, quant <10 <=15 IUnits/mL Blood 08/29/2024 10:5 6 AM CDT 08/29/2024 12:55 PM CDT Serena Steele MD LAB BLOOD ORDERABL ES Final Result Performing Organization Address [facility] Co de Phone Number [facility] [address] Department [place] [address] * Comprehensive metabolic panel (08/29/2024 10:56 AM CDT) [facility] Sodium 137 135 - 145 mmol/L Potassium, pl 4.1 3.3 - 4.9 mmol/L [facility] Chloride 102 97 - 110 mmol/L [facility] CO2 23 22 - 32 mmol/L [facility] Anion gap 12 2 - 15 mmol/L [facility] BUN 25 6 - 25 mg/dL [facility] Creatinine 0.89 0.60 - 1.10 mg/dL [facility] Glucose 93 70 - 199 mg/dL [facility] Comment: Interpretive Data Fasting glucose >/= 126 mg/dl is diagnostic for diabetes. Fasting is defined as no caloric intake for at least 8 hours. Fasting glucose between 100 mg/dl to 125 mg/dl is diagnostic of prediabetes. In a patient with classic symptoms of hyperglycemia or hyperglycemic crisis, a random glucose >/= 200 mg/dl is diagnostic for diabetes. In the absence of unequivocal hyperglycemia, results should be confirmed by repeat testing. The classification and Diagnosis of Diabetes Diabetes Care 202; 46: S19-S40. Current interpretive data was last revised 2022. Calcium 9.5 8.5 - 10.3 mg/dL [facility] Bilirubin, total 0.6 0.1 - 1.2 mg/dL [facility] Protein, pl 6.5 6.5 - 8.5 g/dL [facility] Albumin 4.1 3.5 - 5.0 g/dL [facility] Alk phos 59 40 - 130 Units/L [facility] ALT 14 7 - 45 Units/L [facility] AST 23 10 - 45 Units/L [facility] Blood 08/29/2024 10:5 6 AM CDT 08/29/2024 12:55 PM CDT Serena Steele MD LAB BLOOD ORDERABL ES Final Result [facility] [address] Department [place] [address] * Dexa TBS Axial Skeleton Bone Density 1 or more sites (12/03/2023 2:02 PM CDT) Anatomical Region Laterality Modality Wrist, Body N/A Radiographic Kyra ging Narrative 12/03/2023 5:41 PM CDT Patient Name: Jai Ferrari Date of : 1940 Date of scan: [...] by the International Society of Clinical Densitometry. 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 [employer] Manager Expl anation ADVANCE DIRECTIVE 05/07/2019 ADVANCE DIRECTIVE 02/21/2019 Care Teams Maritime Pilot Relationship Specialty Start Date End Date Faye Alvarado MD [address] [place] [address] PCP - General 04/18/09 Beckie Ansari MD [address] [place] [address] [address] [place] [address] Referring Physician Endocrinology Diabetes & Metabolism 02/01/19 Tyrell Alvarez MD [address] [facility] [address] [place] [address] Referring Physician Orthopedic Surgery 02/01/19 Estella Robles MD [address] [facility] [address] [place] [address] Consulting Physician Dermatology 02/01/19 Colby Townsend, YOCASTAM [address] [facility] [address] [place] [address] Referring Physician Foot and Ankle Surg 02/01/19
--- OUTSIDE RECORDS SUMMARY | 2024-08-31 00:31 | XMS_ITS | Clinical Summary ---
Author Organization [facility] Address [address] [place] [address] Phone Care Team Providers Care Medical Logistics Specialist Name Role Phone Faye Alvarado MD Primary Care Provider Allergies No known active allergies Medications triamterene-hydr ochlorothiazide (DYAZIDE) 37.5-25 mg capsule Take 1 Cap by mouth daily early childhood assistant. Active celecoxib (CELEBREX) 200 mg capsule Take [...] Comments Blood Pressure 128/88 02/13/2014 3:08 PM [employer] Pulse 64 02/13/2014 3:08 PM [employer] Temperature - - Respiratory Rate - - Oxygen Saturation 96% 02/13/2014 3:08 PM [employer] Inhaled Oxygen Concentration - - Weight 51.3 kg (113 lb) 02/13/2014 3:08 PM [employer] Height 157.5 cm (5' 2 ) 02/13/2014 3:08 PM [employer] Body Mass Index 20.67 02/13/2014 3:08 PM [employer] Plan of Treatment Health Maintenance Due Date [...] A AND B BCBS SUPP Care Teams Medical Logistics Specialist Relationship Specialty Start Date End Date Faye Alvarado MD [address] [id number] PCP - General Internal Medicine 10/05/13
--- OUTSIDE RECORDS SUMMARY | 2024-08-31 00:31 | XMS_ITS | Clinical Summary ---
Author Organization [facility] Address [address] [place] [address] Care Team Providers Care Herb Grower Name Role Phone Faye Alvarado MD Primary Care Pro vider Beckie Ansari MD Unavailable [phone] Tyrell Alvarez MD Unavailable [phone] Estella Robles MD Unavailable [phone] Colby Townsend DPM Unavailable [phone] Allergies No known active allergies Medications acetaminophen [...] 03/22/2024 Assessment & Plan (03/22/2024 11:28 AM EXERCISER HORSE): Bilateral hip, hand, wrist, knee pain and lower back pain- refer to rheumatology to evaluate for inflammatory arthritis. Age-related osteoporosis wit hout current pathological fracture 12/03/2023 Assessment & Plan (03/22/2024 11:26 AM EXERCISER HORSE): Check vitamin D. Patient will get labs and then start iv reclast per bone [facility] [place], Dina Clinton NP CKD (chronic kidney disease) stage 3, GFR 30-59 ml/min 05/05/2023 Assessment & Plan (05/05/2023 2:56 PM EXERCISER HORSE): Chronic, follows with nephrology. Follow up as scheduled. Hospital discharge follow-up 05/05/2023 Assessment & Plan (05/05/2023 2:56 PM EXERCISER HORSE): I, Comfort Kincaid NP have personally reviewed [...] 05/05/2023 Assessment & Plan (05/05/2023 2:57 PM EXERCISER HORSE): New problem, s/p total hip replacement. Home health ordered. Lives alone, needs help with transportation, ACO referral placed. Acute midline thoracic back pain 05/05/2023 Assessment & Plan (05/05/2023 2:58 PM EXERCISER HORSE): New problem since falling. X-rays were done at outside hospital but I have no records from the hospitalization. Pain is ongoing, requiring tramadol. Updated x-ray of thoracic and lumbar ordered to r/o compression fracture. Heart murmur 03/17/2023 Assessment & Plan (03/22/2024 11:54 AM EXERCISER HORSE): Had echocardiogram in March last year and no significant valvular heart disease and LV function was normal. Assessment & Plan (03/17/2023 8:28 PM EXERCISER HORSE): Schedule echocardiogram Weight loss 10/16/2022 Assessment & Plan (10/18/2022 9:19 PM CDT): New problem. Check CBC, TSH, CMP Fatigue 10/16/2022 Assessment & Plan (10/18/2022 9:20 PM CDT): New problem. Check CBC, TSH, CMP Dyspnea on exertion 10/16/2022 Assessment & Plan (03/22/2024 11:55 AM EXERCISER HORSE): If symptoms worsen then consider referral to [...] 02/13/2022 Assessment & Plan (06/08/2023 3:01 PM EXERCISER HORSE): Reviewed fall risk and fall assessment. Reviewed [...] 06/06/2021 Assessment & Plan (06/06/2021 11:13 AM EXERCISER HORSE): Longstanding right ht Pt denies signs and [...] 06/04/2020 Assessment & Plan (06/06/2021 11:17 AM EXERCISER HORSE): Continue retaine prn Posterior vitreous detachment of both eyes 06/04 Assessment & Plan (06/29/2024 1:39 PM CDT): Stable. Observe. The signs and symptoms of retinal detachment were reviewed. Advised urgent evaluation with any onset. Pseudophakia, both eyes 06/04/2020 Assessment & Plan (06/29/2024 1:39 PM CDT): Clear. Otc readers prn. Assessment & Plan (06/06/2021 11:16 AM EXERCISER HORSE): Lenses centered and stable, monitor Ptosis of left eyelid 06/04/2020 Assessment & Plan (06/29/2024 1:39 PM CDT): Offered surgical consult but pt elects observation Assessment & Plan (06/06/2021 12:30 PM EXERCISER HORSE): Stable, monitor Paresthesia 10/10/2019 Assessment & Plan (10/10/2019 12:42 PM CDT): Worsening problem. Refer to Neurology Body mass index (BMI) 19.9 or less, adult 2018 Assessment & Plan (06/08/2023 2:59 PM EXERCISER HORSE): Patient is thin, but healthy Assessment & [...] exercise. Assessment & Plan (04/27/2019 11:33 AM EXERCISER HORSE): Weight is stable and unchanged for patient. Assessment & Plan (02/01/2019 5:14 PM CDT): Patient is thin, but is healthy Grief 02/01/2019 Assessment & Plan (02/01/2019 5:16 PM CDT): This is related to her who has in November 2018. We discussed local measures to treat grief and bereavement. Advised to enlist help of family, friends and buddhism. There are no signs or symptoms of major depression BMI 20.0-20.9, adult 10/27/2017 Assessment & Plan (03/17/2023 8:27 PM EXERCISER HORSE): Patient at healthy weight. Continue healthy diet- [...] 10/27/2017 Assessment & Plan (06/08/2023 3:00 PM EXERCISER HORSE): Continue current medications and call if problems [...] 07/21/2017 Assessment & Plan (06/08/2023 2:59 PM EXERCISER HORSE): Continue current medications and call if problems or side effects. Follow up with bone health Assessment & Plan (05/05/2023 2:56 PM EXERCISER HORSE): Chronic, on reclast. Continue to follow up with bone health Assessment & Plan (03/17/2023 8:27 PM EXERCISER HORSE): Check vitamin D level Assessment & Plan [...] 10/21/2016 Assessment & Plan (03/17/2023 8:28 PM EXERCISER HORSE): Reviewed fall risk and fall assessment. Patient [...] allergic rhinitis. Advised the patient to use iruf-mhn-ldumxoc antihistamine or kcit-lab-wpdpksf nasal spray Medicare annual wellness visit, subsequent 10/20 Assessment & Plan (03/22/2024 11:26 AM EXERCISER HORSE): Plan as below Assessment & Plan (03/17/2023 8:29 PM EXERCISER HORSE): Patient here for annual Medicare wellness visit [...] NOS Assessment & Plan (06/08/2023 2:59 PM EXERCISER HORSE): Continue current medications. Continue low salt diet, home blood pressure checks and low salt diet. Avoid NSAIDs and decongestants which may raise blood pressure Assessment & Plan (05/05/2023 2:55 PM EXERCISER HORSE): Chronic, uncontrolled. Was started on hydralazine 12.5 mg TID while in the hospital. Amlodipine was restarted as well. She has peripheral edema historically with higher doses of amlodipine. Increase losartan to 100 mg daily, will need to follow up BMP to monitor her CKD. Will follow up in the office in 1 month. Assessment & Plan (03/17/2023 8:34 PM EXERCISER HORSE): Patient is stopping amlodipine due to peripheral [...] at home and will communicate readings via [employer]. She will call in 1 week with her blood pressure readings. EKG shows normal sinus rhythm with RSR normal variant. No acute changes. Assessment & Plan (10/27/2017 10:38 AM CDT): Continue current medications. Continue low salt diet and home blood pressure checks. Recommend regular exercise. Sciatica 08/26/2013 Overview (07/16/2016): SCIATICA Hyperlipidemia 08/26/2013 Overview (07/16/2016): HYPERLIPIDEMIA NEC/NOS Assessment & Plan (03/22/2024 11:25 AM EXERCISER HORSE): Continue strict low fat diet and regular exercise to lower cholesterol. Assessment & Plan (06/08/2023 3:01 PM EXERCISER HORSE): Continue strict low fat diet and regular exercise to lower cholesterol. Assessment & Plan (03/17/2023 8:29 PM EXERCISER HORSE): Continue strict low fat diet and regular [...] - 08/29/2024 11:59 PM CDT Hospital Encounter [address] [place] [id number] Discharge Disposition: Discharge to home or self care 08/29/2024 11:06 AM CDT - 08/29/2024 11:59 PM CDT Hospital Encounter [facility] - Imaging [address] [place] [address] Serena Steele MD Arthralgia, unspecified joint; Primary generalized (osteo)arthritis; Age-related osteoporosis with current pathological fracture with routine healing Discharge Disposition: Discharge to home or self care 08/29/2024 10:00 AM CDT Office Visit [facility] Rhe[facility]ology at [facility] [address] [place] [phone] Serena Steele MD Arthralgia, unspecified joint (Primary Dx); Primary generalized (osteo)arthritis; Age-related osteoporosis with current pathological fracture with routine healing 06/29/2024 1:00 PM CDT Office Visit [facility] Ophthalmology [facility] [place] [address] Tyrell Miranda, OD Ptosis of left eyelid (Primary Dx); Posterior vitreous detachment of both eyes; Pseudophakia, both eyes 06/16/2024 Telephone [facility] Ophthalmology [address], [address] [place] [address] Maria Eugenia Scruggs, OD from Last 3 Months Immunizations Immunization Administration [...] TOTAL HIP ARTHROPLASTY 04/12/2015 - 04/11/2016 Left x2 TOTAL KNEE ARTHROPLASTY 04/12/2018 - 05/12/2018 Left [...] = 0.6 oz pur e alcohol) rarely [employer] Util[employer] Answer Date Recorded In the past 12 months has e electric, gas, oil, or water company [...] often do you attend chur ch or baptist services? More than 4 times per year 05/07/2023 Do you belong to any clubs o r organizations such as buddhism groups, unions, fraternal or athletic groups, or [...] place to sleep or slept in a detention (including now)? No 05/07/2023 Comments No Sex and Gender Information Value Date Recorded Sex Assigned at Not on file Legal Sex Female 11:40 PM EXERCISER HORSE Gender Identity Female 02/10/2021 6:27 PM CDT [...] 08/29/2024 10:08 AM CDT Plan of Treatment Health Maintenance Due [...] history exists Well Visit 65+ 03/22/2025 03/22/2024, 1209/2022, 02/13/2022, Additional history exists Osteoporosis Screening-Bone Density [...] above for additional findings. Electronically signed by: Mliton Abdalla M.D. Narrative 08/30/2024 3:33 PM CDT [...] MD LAB BLOOD ORDERABL ES Final Result [facility] [address] [place] [address] * (ABNORMAL) Differential, auto (08/29/2024 10:56 AM CDT) Neutrophil abs 4.97 1.50 - 6.50 K/cumm Imm gran abs 0.02 0.00 - 0.10 K/cumm [facility] Lymphocyte abs 0.45(L) 0.80 - 3.30 K/cumm [facility] Monocyte abs 0.54 0.20 - 0.80 K/cumm [facility] Eosinophil abs 0.07 0.00 - 0.50 K/cumm [facility] Basophil abs 0.05 0.00 - 0.10 K/cumm [facility] Neutrophil pct 81.5 % [facility] Comment: Interpretive Data Percent cell count reference ranges are not reported, since discordance with absolute values may lead to misinterpretation of CBC data. Current Interpretive Data was last revised on 2017. Imm gran pct 0.3 % [facility] Comment: Interpretive Data Percent cell count reference ranges are not reported, since discordance with absolute values may lead to misinterpretation of CBC data. Current Interpretive Data was last revised on 2017. Lymphocyte pct 7.4 % [facility] Comment: Interpretive Data Percent cell count reference ranges are not reported, since discordance with absolute values may lead to misinterpretation of CBC data. Current Interpretive Data was last revised on 2017. Monocyte pct 8.9 % [facility] Comment: Interpretive Data Percent cell count reference ranges are not reported, since discordance with absolute values may lead to misinterpretation of CBC data. Current Interpretive Data was last revised on 2017. Eosinophil pct 1.1 % [facility] Comment: Interpretive Data Percent cell count reference ranges are not reported, since discordance with absolute values may lead to misinterpretation of CBC data. Current Interpretive Data was last revised on 2017. Basophil pct 0.8 % [facility] Comment: Interpretive Data Percent cell count reference ranges are not reported, since discordance with absolute values may lead to misinterpretation of CBC data. Current Interpretive Data was last revised on 2017. Blood 08/29/2024 10:5 6 AM CDT 08/29/2024 12:55 PM CDT us Serena Steele MD LAB BLOOD ORDERABL ES Final Result [facility] [address] [place] [address] * (ABNORMAL) CBC with auto differential (08/29/2024 10:56 AM CDT) WBC 6.10 3.80 - 9.90 K/cumm Hgb 13.4 11.9 - 15.5 g/dL [facility] Hct 41.7 35.6 - 45.5 % [facility] Plt 201 150 - 400 K/cumm [facility] MPV 9.9 9.1 - 12.3 fL [facility] RBC 4.46 3.90 - 5.20 M/cumm [facility] MCV 93.5 81.3 - 96.4 fL [facility] MCH 30.0 27.1 - 33.3 pg [facility] MCHC 32.1(L) 32.3 - 35.7 g/dL [facility] RDW CV 13.5 11.1 - 14.9 % [facility] RDW SD 46.5 35.7 - 48.1 fL [facility] NRBC abs 0.00 0.00 - 0.01 K/cumm [facility] Blood 08/29/2024 10:5 6 AM CDT 08/29/2024 12:55 PM CDT Serena Steele MD LAB BLOOD ORDERABL ES Final Result Performing Organization Address [facility] Co de Phone Number [facility] [address] [place] [address] * Cyclic citrul peptide antibody, IgG (08/29/2024 10:56 AM CDT) CCP Ab <0.5 <=2.9 units/mL Comment: Interpretive data Negative: <3 units/mL Positive: > or equal to 3 units/mL Current interpretive data was last revised on 2016. Testing performed by: [facility], [address] [place]., [address] Blood 08/29/2024 10:5 6 AM CDT 08/29/2024 4:31 PM CDT us Serena Steele MD LAB BLOOD ORDERABL ES Final Result Performing Organization Address [facility] Co de Phone Number [facility] [address] [place] [address] * Rheumatoid factor (08/29/2024 10:56 AM CDT) Rheumatoid factor, quant <10 <=15 IUnits/mL Blood 08/29/2024 10:5 6 AM CDT 08/29/2024 12:55 PM CDT Serena Steele MD LAB BLOOD ORDERABL ES Final Result Performing Organization Address City/[facility]/ZIP Co de Phone Number [facility] [address] [place] [address] * Comprehensive metabolic panel (08/29/2024 10:56 AM CDT) Sodium 137 135 - 145 mmol/L Potassium, pl 4.1 3.3 - 4.9 mmol/L [facility] Chloride 102 97 - 110 mmol/L [facility] CO2 23 22 - 32 mmol/L [facility] Anion gap 12 2 - 15 mmol/L [facility] BUN 25 6 - 25 mg/dL [facility] Creatinine 0.89 0.60 - 1.10 mg/dL [facility] Glucose 93 70 - 199 mg/dL [facility] Comment: Interpretive Data Fasting glucose >/= 126 [...] classification and Diagnosis of Diabetes Diabetes Care 2021; 46: S19-S40. Current interpretive data was last revised 2022. Calcium 9.5 8.5 - 10.3 mg/dL [facility] Bilirubin, total 0.6 0.1 - 1.2 mg/dL [facility] Protein, pl 6.5 6.5 - 8.5 g/dL [facility] Albumin 4.1 3.5 - 5.0 g/dL [facility] Alk phos 59 40 - 130 Units/L [facility] ALT 14 7 - 45 Units/L [facility] AST 23 10 - 45 Units/L [facility] Blood 08/29/2024 10:5 6 AM CDT 08/29/2024 12:55 PM CDT us Serena Steele MD LAB BLOOD ORDERABL ES Final Result [facility] [address] [place] [address] * Dexa TBS Axial Skeleton Bone Density 1 or more sites (12/03/2023 2:02 PM CDT) Anatomical Region Laterality Modality Wrist, Body N/A Radiographic Kyra ging Narrative 12/03/2023 5:41 PM CDT Patient Name: Jia Ferrari Date of : 1940 Date of scan: 12/03/2023 Bone mineral density was performed on a [employer] Discovery Densitometer. Based on machine cross-calibration and [...] by the International Society of Clinical Densitometry. 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 [address] [place] [address] Referring Physician Endocrinology Diabetes & Metabolism 02/01/19 Tyrell Alvarez MD [address] [facility] [address] [place] [address] Referring Physician Orthopedic Surgery 02/01/19 Estella Robles MD [address] [facility] [address] [place] [address] Consulting Physician Dermatology 02/01/19 Colby Townsend, DPM [address] [facility] [address], [place] [address] Referring Physician Foot and Ankle Surg 02/01/19
--- OUTSIDE RECORDS SUMMARY | 2024-08-31 00:31 | XMS_ITS | Continuity of Care Document ---
Author Organization [facility] Address [address] [facility] [address] [place] [address] Phone Care Team Providers Care Hat Blocking Operator Name Role Phone Pond OD, Michele Unavailable Unavailable Procedures Procedure Date Eye Exam & Treatment No Script Refraction Advance Directives Directive Yes / No Effective Date File Name No Information Encounters Encounter Description Practice Location Reason(s) For Visit Diagnoses Date Provider Providers Copied on Encounter [facility], [address] [place], [place], [id number], [place] tel:[phone] [facility] No Information [address] OD Michele. [address], [place], [address], [place]. tel:[phone] Family History Family Member Type Diagnosis Age At Onset No Information Payers Payer name Insurance type Covered libertarian ID Authoriza tion(s) [place] [id number] [place] [id number] Social History Type Description Quantity Date Captured [...]
--- OUTSIDE RECORDS SUMMARY | 2024-08-31 00:31 | XMS_ITS | Clinical Summary ---
Author Organization [facility] Address [address] [place] [address] Care Team Providers Care Assistant Professor Of Biology Name Role Phone Unavailable Primary Care Provider Unavailabl e Source Comments [facility] Datappraise,non-owned Affiliates and Associated Physician Practices is amultiple site organization consisting of ambulatory clinics and hospital sitesin [place], [place], [place] and [place]. This disclosure is being madepursuant to the Care Everywhere program and may not contain all information available regarding this patient. Last updated 17.[facility] Datappraise Allergies No known active allergies Medications * [...] patient's age to complete this topic Insurance [facility] MEDICARE MEDICARE [facility]
--- OUTSIDE RECORDS SUMMARY | 2024-08-31 00:31 | XMS_ITS | Encounter Summary ---
Author Organization [facility] Address [facility] [place] [address] Care Team Providers Care Laborer Steel Handling Name Role Phone Unavailable Primary Care Provider Unavailabl e Encounter Details Date Type Department Care Team (Late st Contact Info) Description 05/31/2023 Lab Requisition [facility] [address] [place] [address] Ira Casey MD [address] [place] [address] Social History Tobacco Use Types Packs/Day Years [...]
[2024-08-31 11:55] VITALS: BP 187/103; PULSE 70; RESP 18; TEMP 36.7; O2SAT 100
--- NOTE | 2024-08-31 11:56 | P.PNAN_ITS ---
Anes - Initial Pre Proc Eval Procedure: Operation Date: 08/31/24 12:30 Proposed Procedures p Esophagogastroduodenoscopy - Aramis Cortés MD Date/Time: 08/31/24 11:56 Surgeon: Aramis Cortés MD Pre Op Diagnosis: Dysphagia, unspecified Patient Data Age: 84 Gender: F Height: 1.57 m Weight: 47.7 kg Last Vital Signs Temp 36.7 C 08/31/24 11:55 Pulse 70 08/31/24 11:55 Resp 18 08/31/24 11:55 BP 187/103 H 08/31/24 11:55 Pulse Ox 100 08/31/24 11:55 O2 Del Method Room Air 08/31/24 11:55 Allergies Allergy/AdvReac Type Severity Reaction Status Date / Time hydromorphone (From Dilaudid) Allergy Severe Itching Verified 08/23/24 15:34 Home Medications ?Medication ?Instructions ?Recorded ?Confirmed ?Type acetaminophen 500 mg tablet 1,000 mg PO Q6H PRN Pain 11/08/19 08/23/24 History (Tylenol Extra Strength) losartan 50 mg tablet 50 mg PO DAILY 04/19/23 08/31/24 History tramadol 50 mg tablet 50 mg PO Q6H PRN pain 05/12/23 08/23/24 History hydralazine 25 mg tablet 25 mg PO TID 08/23/24 08/31/24 History hydralazine 50 mg tablet 50 mg PO TID 08/23/24 08/31/24 History Patient hx anesthesia problems: none Family hx anesthesia problems: none Results Review: All pre-operative results and documents have been reviewed as part of the pre- operative evaluation. 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 She is independent activities of daily living. She drinks alcohol on occasion but only in moderation. Code status: DNR/DNI (per patient request) Smoking status: Never smoker Second hand tobacco smoke exposure: Yes (not recently) Additional smoking assessment comments: DENIES ANY FORM OF TOBACCO USE Alcohol intake: current Drinks per week: 1 Substance use: never Substance use type: prescription drug Other substance usage details: using Oxycodone po prn post op, takes Tramadol daily for arthritic pain Do You Feel Safe in your Home?: Yes Lack of Transportation: No Lack of Food: Never True Current Housing: I Have Housing Concerned About Future Housing: No Difficulty Paying Gas/Electric Bills: No Difficulty Paying for Meds: No Currently Unemployed: No Education: High School Diploma/GED Difficulty w/ Childcare or Family Care: No Living arrangements: alone Spiritual care concerns: No Anes - Eval Final PreProcedure Day of Procedure 08/31/24 11:56 Patient weight: normal Heart: regular rate and rhythm Lungs: clear to auscultation and normal air movement Airway: Mallampati scale class II Neurological: alert and oriented Last oral intake: >/= 8 hours ASA classification: III Emergent: no Anesthetic plan: proceed Anesthesia type and monitoring: general GIVS and standard monitoring Results Review: All pre-operative results and documents have been reviewed as part of the pre- operative evaluation. Informed Consent: The patient's anesthetic plan and its attendant risks and benefits were discussed with the patient/family/POA. Questions were solicited and answers provided to the satisfaction of the patient/family/POA.
[2024-08-31] MEDS: LACTATED RINGERS 1,000 ML 150 ML IV CONT (12:08)
--- NOTE | 2024-08-31 12:33 | PM.IMHP ---
H&P: HPI History of Present Illness Date/Time: 08/31/24 12:33 Chief Complaint: Dysphagia Narrative: the patient has been complaining of intermittent dysphagia for several years, exclusively to solid food. She denies heartburn, weight loss, nausea vomiting. 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 She is independent activities of daily living. She drinks alcohol on occasion but only in moderation. Code status: DNR/DNI (per patient request) Smoking status: Never smoker Second hand tobacco smoke exposure: Yes (not recently) Additional smoking assessment comments: DENIES ANY FORM OF TOBACCO USE Alcohol intake: current Drinks per week: 1 Substance use: never Substance use type: prescription drug Other substance usage details: using Oxycodone po prn post op, takes Tramadol daily for arthritic pain Do You Feel Safe in your Home?: Yes Lack of Transportation: No Lack of Food: Never True Current Housing: I Have Housing Concerned About Future Housing: No Difficulty Paying Gas/Electric Bills: No Difficulty Paying for Meds: No Currently Unemployed: No Education: High School Diploma/GED Difficulty w/ Childcare or Family Care: No Living arrangements: alone Spiritual care concerns: No Meds Home Medications and Allergies Home Medications ?Medication ?Instructions ?Recorded ?Confirmed ?Type acetaminophen 500 mg tablet 1,000 mg PO Q6H PRN Pain 11/08/19 08/23/24 History (Tylenol Extra Strength) losartan 50 mg tablet 50 mg PO DAILY 04/19/23 08/31/24 History tramadol 50 mg tablet 50 mg PO Q6H PRN pain 05/12/23 08/23/24 History hydralazine 25 mg tablet 25 mg PO TID 08/23/24 08/31/24 History hydralazine 50 mg tablet 50 mg PO TID 08/23/24 08/31/24 History Allergies Allergy/AdvReac Type Severity Reaction Status Date / Time hydromorphone (From Dilaudid) Allergy Severe Itching Verified 08/23/24 15:34 Vital Signs Vital Signs - 24 hr 08/31/24 11:55 Temperature 98.0 F Pulse Rate 70 Respiratory Rate 18 Blood Pressure 187/103 H Pulse Oximetry 100 Oxygen Delivery Room Air Exam Const: General: cooperative and healthy appearing Resp: Effort & Inspection: normal respiratory effort and able to speak in complete sentences Auscultation: clear to auscultation bilaterally Cardio: Rate: regular rate Rhythm: regular rhythm GI: Inspection: normal to inspection GI Palp: No No hepatosplenomegaly present Auscultation: normal bowel sounds Rectal Exam: deferred Skin: General skin exam: normal color Psych: Appearance: grossly normal Mental Status: mental status grossly normal Assessment and Plan Assessment and plan (1) Dysphagia: Code(s): R13.10 - Dysphagia, unspecified Status: Acute Assessment and Plan: The patient is deemed a good candidate for the procedure. Consent signed. Will proceed.
[2024-08-31 12:55] VITALS: BP 136/94; PULSE 70; RESP 19; O2SAT 97
[2024-08-31 13:05] VITALS: BP 146/89; PULSE 70; RESP 19; O2SAT 98
[2024-08-31 13:15] VITALS: BP 157/105; PULSE 60; RESP 19; O2SAT 99
== END 2024-08-31 13:30 | disposition home or self-care (01) ==
PROVIDERS: Referring Provider Otolaryngology; Visit Provider Internal Medicine Gastroenterology
PROC: 0DJ08ZZ Inspection of Upper Intestinal Tract, Via Natural or Artificial Opening Endoscopic (ICD-10-PCS; CPT 43239; principal; 2024-08-31 12:30)
DX: R13.10 Dysphagia, unspecified (principal); K29.50 Unspecified chronic gastritis without bleeding
CPT/HCPCS: 43239; 88305; 88312; 88342; J2003; J2704; J7120

== ENCOUNTER 2025-01-22 16:57 | Outpatient (CLI) | payer MEDICARE, SELFPAY ==
--- OUTSIDE RECORDS SUMMARY | 2009-03-22 09:30 | XMS_ITS | Continuity of Care Document ---
Author Organization [facility] Address [address] [facility] [address] [place] [address] Phone Care Team Providers Care Client Strategist Name Role Phone Pond OD, Michele Unavailable Unavailable Procedures Procedure Date Eye Exam & Treatment No Script Refraction Advance Directives Directive Yes / No Effective Date File Name No Information Encounters Encounter Description Practice Location Reason(s) For Visit Diagnoses Date Provider Providers Copied on Encounter [facility], [address], [place], [place], [id number], [place] tel:[phone] [facility] No Information [address] Pond OD Michele. [address] , [address], [place], [address], [place]. tel:[phone] Family History Family Member Type Diagnosis Age At Onset No Information Payers Payer name Insurance type Covered green party ID Authoriza tion(s) [place] [id number] [place] Commercial [place] [id number] Social History Type Description Quantity Date Captured Comments Sex Female Smoking Status No Information Chief Complaint And Reason For Visit No Information Reason For Referral Reason For Referral No Information History Of Present Illness Encounter Date Complaint History Of Prese nt Illness No Information Functional Status Date Functional Assessmen t No Information Instructions Date Instruction Additional Infor mation No Information Assessments Type Assessment Date No Information Patient Care Teams Name Effective Dates (start - stop) Status Members No Information
--- OUTSIDE RECORDS SUMMARY | 2025-01-22 17:00 | XMS_ITS | Patient Health Record ---
Author Organization [facility] yan Address [address] [place] [address] Support Name Relationship Address Phone Hilario Leonardo Emergency Contact Unknown [phone] Jia Sequeira Guarantor Unknown [phone] Allergies No Known Allergies Reason For Referral No Information Problems Problem Type SNOMED Code ICD Code Onset Dates Problem Status W/U Status Risk Notes Problem Actinic keratosis (714614) Actinic keratosis (L57.0) Active confirmed Plan Of Treatment No Information Insurance Providers Payer Name Payer Address Payer Phone Subscriber Number Group Number Insured Name Patient Relationship to Insured Coverage Start Date Coverage End Date DO NOT USE AR [id number] Jia Sequeira Self - patient is the insured 9 [place] [address] [place] [address] [id number] Jia Sequeira Self - patient is the insured 1 [employer] [place] [address] [place] [address] [id number] Jia Sequeira Self - patient is the insured 1
--- OUTSIDE RECORDS SUMMARY | 2025-01-22 17:00 | XMS_ITS | Clinical Summary ---
Author Organization [facility] Address [address] [place] [address] Care Team Providers Care Pitting Machine Operator Name Role Phone Unavailable Primary Care Provider Unavailabl e Source Comments [facility],non-owned Affiliates and Associated Physician Practices is amultiple site organization consisting of ambulatory clinics and hospital sitesin [place], [place], [place] and [place]. This disclosure is being madepursuant to the Care Everywhere program and may not contain all information available regarding this patient. Last updated 17.[facility] Allergies No known active allergies Medications * [...] 4:31 PM CDT Height 157.5 cm (5' 2) 08/19/2020 4:31 PM CDT Body Mass Index [...] yrs (1 - 1-dose 75+ series) 2017 DEPRESSION SCREENING 04/12/2024 COVID-19 VACCINE (1 - 2023- season) 2024 INFLUENZA VACCINE (#1) 2024 0, 02/01/2019, 01/10/2018, Additional history exists HEPATITIS B [...] patient's age to complete this topic Insurance COUNTS INCLUDE 234 [facility]EDS AT [facility] MEDICARE ANTHE[place] SELF PAY NO INSURANCE Member Subscriber Plan / Payer (Ef fective for All Dates) Name:Jia Ferrari Member ID:Not on file Relation to Subscriber:Not on file Name:JIA FERRARI Subscriber ID:Not on file (Home) Address: [address] [place] [id number] Payer ID:Not on file Group ID:Not on file Type:Self Pay Address: [place], [place] MEDICARE ANTHEM
--- OUTSIDE RECORDS SUMMARY | 2025-01-22 17:00 | XMS_ITS | Clinical Summary ---
Author Organization [facility] Address [address] [place] [address] Phone Care Team Providers Care Finished Cloth Checker Name Role Phone Faye Alvarado MD Primary Care Provider Allergies No known active allergies Medications triamterene-hydr ochlorothiazide (DYAZIDE) 37.5-25 mg capsule Take 1 Cap by mouth daily makeup instructor. Active celecoxib (CELEBREX) 200 mg capsule Take [...] Comments Blood Pressure 128/88 02/13/2014 3:08 PM MANAGEMENT ASSOCIATE Pulse 64 02/13/2014 3:08 PM MANAGEMENT ASSOCIATE Temperature - - Respiratory Rate - - Oxygen Saturation 96% 02/13/2014 3:08 PM MANAGEMENT ASSOCIATE Inhaled Oxygen Concentration - - Weight 51.3 kg (113 lb) 02/13/2014 3:08 PM MANAGEMENT ASSOCIATE Height 157.5 cm (5' 2) 02/13/2014 3:08 PM MANAGEMENT ASSOCIATE Body Mass Index 20.67 02/13/2014 3:08 PM MANAGEMENT ASSOCIATE Plan of Treatment Health Maintenance Due Date Last Done Comments ZOSTER VACCINE (1 of 2) 02/08/1992 OSTEOPOROSIS SCREENING 2007 RSV VACCINE (60+ or ) (1 - 1-dose 75+ series) 2017 DTAP/TDAP/TD VACCINES (2 - T d or Tdap) 05/13/2020 05/13/2010 INFLUENZA VACCINE (#1) 2024 5, 01/21/2013, 03/07/2012, Additional history exists PNEUMOCOCCAL VACCINE 50+ YEARS Completed 10/08/2014 , 10/05/2008 Insurance MEDICARE PART A AND B BCBS SUPP Care Teams Finished Cloth Checker Relationship Specialty Start Date End Date Faye Alvarado MD [address] [phone] PCP - General Internal Medicine 10/05/13
--- OUTSIDE RECORDS SUMMARY | 2025-01-22 17:00 | XMS_ITS | Encounter Summary ---
Author Organization [facility] Address [address] [address] Care Team Providers Care Agricultural Appraiser Name Role Phone Unavailable Primary Care Provider Unavailabl e Encounter Details Date Type Department Care Team (Late st Contact Info) Description 09/06/2024 Lab Requisition [facility] - Pathology Lab [address] [place] [address] Bobby Finley MD [address] [phone] Dysphagia, unspecified Social History Tobacco Use Types Packs/Day Years [...] Procedure Name Priority Date/Time Associated Diagnosis Comments SLIDE PREP HISTOLOGY Routine 09/05/2024 12:00 PM CDT Dysphagia, unspecified documented in this encounter Results * SLIDE PREP HISTOLOGY (09/05/2024 12:00 PM CDT) Client Specimen ID # [id number] 01/12/2025 11:17 AM CDT [facility] Number of Blocks Received 0 01/12/2025 11:17 AM CDT [facility] Number of Slides 1 01/12/2025 11:17 AM CDT [facility] Number of Control Slides 1 01/12/2025 11:17 AM CDT [facility] Pathology/Cytolo gy SLIDE / Unknown 09/05/2024 12:00 PM CDT 09/06/2024 3:13 PM CDT us Bobby Finley MD LAB - PATHOLOGY/CYTOLOGY ORDERAB LES Final Result Performing Organization Address City/State/[facility] Co de Phone Number [facility] PATH[facility]Y LAB [address] [phone] documented in this encounter Visit Diagnoses Diagnosis Dysphagia, unspecified documented in this encounter
--- OUTSIDE RECORDS SUMMARY | 2025-01-22 17:00 | XMS_ITS | Clinical Summary ---
Author Organization [facility] Address [address] [place] [address] Care Team Providers Care Trouble Locator Test Desk Name Role Phone Faye Alvarado MD Primary Care Pro vider Beckie Ansari MD Unavailable [phone] Tyrell Alvarez MD Unavailable [phone] Estella Robles MD Unavailable Colby Townsend DPM Unavailable Allergies Active Allergy Reactions Criticality Noted Date Comments Hydromorphone Itching High 08/23/2024 Medications acetaminophen (TYLENOL) 500 mg tablet Take 1 tablet (500 mg total) by mouth every 6 (six) hours as needed for pain Active losartan (COZAAR) 100 mg tablet Take 1 tablet by mouth once daily 90 tablet 3 06/06/19 25 Active hydrALAZINE (APRESOLINE) 50 mg tablet Take 1 tablet (50 mg total) by mouth every 8 (eight) hours 08/10/19 25 Active hydrALAZINE (APRESOLINE) 25 mg tablet Take 1 tablet (25 mg total) by mouth 3 (three) times a day 10/27/19 25 026 Active Additional Information Patient not taking.Reported on 12/12/2024 traMADoL (ULTRAM) 50 mg tablet Take 1 tablet (50 mg total) by mouth every 12 (twelve) hours as needed for pain for pain 60 tablet 5 01/11/20 25 Active traMADoL (ULTRAM) 50 mg tablet Take 1 tablet (50 mg total) by mouth every 12 (twelve) hours as needed for pain for pain 60 tablet 5 06/06/19 25 025 Discontinued Active Problems Problem Noted Date Diagnosed Date Short-term memory loss 10/26/2024 Assessment & Plan (10/26/2024 5:22 PM CDT): Worsening problems. Check labs. Schedule Tau Pet scan. Follow up with [facility] Arthralgia 03/22/2024 Assessment & Plan (03/22/2024 11:28 AM SOAPSTONER): Bilateral hip, hand, wrist, knee pain and lower back pain- refer to rheumatology to evaluate for inflammatory arthritis. Age-related osteoporosis wit hout current pathological fracture 12/03/2023 Assessment & Plan (03/22/2024 11:26 AM SOAPSTONER): Check vitamin D. Patient will get labs and then start iv reclast per bone healthDina NP CKD (chronic kidney disease) stage 3, GFR 30-59 ml/min 05/05/2023 Assessment & Plan (10/26/2024 5:21 PM CDT): Recommend pushing fluids to stay hydrated. Would avoid over the counter medications such as motrin, advil, aleve, and ibuprofen as these medications can cause a decrease in kidney function. Follow up with nephrology Assessment & Plan (05/05/2023 2:56 PM SOAPSTONER): Chronic, follows with nephrology. Follow up as scheduled. Hospital discharge follow-up 05/05/2023 Assessment & Plan (05/05/2023 2:56 PM SOAPSTONER): IComfort NP have personally reviewed pertinent inpatient and/or ED records, including discharge medications and [employer] if applicable. This patient's discharge medication list has been reviewed and reconciled with her outpatient medication list and has also been reviewed with patient and/or caregiver. I have noted any changes. S/P right hip fracture 05/05/2023 Closed fracture of right hip 05/05/2023 Assessment & Plan (05/05/2023 2:57 PM SOAPSTONER): New problem, s/p total hip replacement. Home health ordered. Lives alone, needs help with transportation, ACO referral placed. Acute midline thoracic back pain 05/05/2023 Assessment & Plan (05/05/2023 2:58 PM SOAPSTONER): New problem since falling. X-rays were done at outside hospital but I have no records from the hospitalization. Pain is ongoing, requiring tramadol. Updated x-ray of thoracic and lumbar ordered to r/o compression fracture. Heart murmur 03/17/2023 Assessment & Plan (03/22/2024 11:54 AM SOAPSTONER): Had echocardiogram in March last year and no significant valvular heart disease and LV function was normal. Assessment & Plan (03/17/2023 8:28 PM SOAPSTONER): Schedule echocardiogram Weight loss 10/16/2022 Assessment & Plan (10/18/2022 9:19 PM CDT): New problem. Check CBC, TSH, CMP Fatigue 10/16/2022 Assessment & Plan (10/18/2022 9:20 PM CDT): New problem. Check CBC, TSH, CMP Dyspnea on exertion 10/16/2022 Assessment & Plan (03/22/2024 11:55 AM SOAPSTONER): If symptoms worsen then consider referral to [...] 02/13/2022 Assessment & Plan (06/08/2023 3:01 PM SOAPSTONER): Reviewed fall risk and fall assessment. Reviewed [...] 06/06/2021 Assessment & Plan (06/06/2021 11:13 AM SOAPSTONER): Longstanding right ht Pt denies signs and [...] 06/04/2020 Assessment & Plan (06/06/2021 11:17 AM SOAPSTONER): Continue retaine prn Posterior vitreous detachment of both eyes 06/04 Assessment & Plan (06/29/2024 1:39 PM CDT): Stable. Observe. The signs and symptoms of retinal detachment were reviewed. Advised urgent evaluation with any onset. Pseudophakia, both eyes 06/04/2020 Assessment & Plan (06/29/2024 1:39 PM CDT): Clear. Otc readers prn. Assessment & Plan (06/06/2021 11:16 AM SOAPSTONER): Lenses centered and stable, monitor Ptosis of left eyelid 06/04/2020 Assessment & Plan (06/29/2024 1:39 PM CDT): Offered surgical consult but pt elects observation Assessment & Plan (06/06/2021 12:30 PM SOAPSTONER): Stable, monitor Paresthesia 10/10/2019 Assessment & Plan (10/10/2019 12:42 PM CDT): Worsening problem. Refer to Neurology Body mass index (BMI) 19.9 or less, adult 2018 Assessment & Plan (06/08/2023 2:59 PM SOAPSTONER): Patient is thin, but healthy Assessment & [...] exercise. Assessment & Plan (04/27/2019 11:33 AM SOAPSTONER): Weight is stable and unchanged for patient. Assessment & Plan (02/01/2019 5:14 PM CDT): Patient is thin, but is healthy Grief 02/01/2019 Assessment & Plan (02/01/2019 5:16 PM CDT): This is related to her who has in November 2018. We discussed local measures to treat grief and bereavement. Advised to enlist help of family, friends and alevism. There are no signs or symptoms of major depression BMI 20.0-20.9, adult 10/27/2017 Assessment & Plan (03/17/2023 8:27 PM SOAPSTONER): Patient at healthy weight. Continue healthy diet- [...] 10/27/2017 Assessment & Plan (06/08/2023 3:00 PM SOAPSTONER): Continue current medications and call if problems [...] 07/21/2017 Assessment & Plan (06/08/2023 2:59 PM SOAPSTONER): Continue current medications and call if problems or side effects. Follow up with bone health Assessment & Plan (05/05/2023 2:56 PM SOAPSTONER): Chronic, on reclast. Continue to follow up with bone health Assessment & Plan (03/17/2023 8:27 PM SOAPSTONER): Check vitamin D level Assessment & Plan [...] 10/21/2016 Assessment & Plan (03/17/2023 8:28 PM SOAPSTONER): Reviewed fall risk and fall assessment. Patient [...] allergic rhinitis. Advised the patient to use idkm-srl-lruvdcd antihistamine or ikox-[id number]-xbabgsj nasal spray Medicare annual wellness visit, subsequent 10/20 Assessment & Plan (03/22/2024 11:26 AM SOAPSTONER): Plan as below Assessment & Plan (03/17/2023 8:29 PM SOAPSTONER): Patient here for annual Medicare wellness visit [...] & CARTILAGE DIS NOS Assessment & Plan (10/26/2024 5:19 PM CDT): Check vitamin-D level Assessment & Plan (02/13/2022 5:25 PM CDT): [...] Overview (07/16/2016): HYPERTENSION NOS Assessment & Plan (10/26/2024 5:19 PM CDT): Continue hydralazine and losartan Continue low salt diet, home blood pressure checks and low salt diet. Avoid NSAIDs and decongestants which may raise blood pressure Assessment & Plan (06/08/2023 2:59 PM SOAPSTONER): Continue current medications. Continue low salt diet, home blood pressure checks and low salt diet. Avoid NSAIDs and decongestants which may raise blood pressure Assessment & Plan (05/05/2023 2:55 PM SOAPSTONER): Chronic, uncontrolled. Was started on hydralazine 12.5 mg TID while in the hospital. Amlodipine was restarted as well. She has peripheral edema historically with higher doses of amlodipine. Increase losartan to 100 mg daily, will need to follow up BMP to monitor her CKD. Will follow up in the office in 1 month. Assessment & Plan (03/17/2023 8:34 PM SOAPSTONER): Patient is stopping amlodipine due to peripheral [...] at home and will communicate readings via [employer]. She will call in 1 week with her blood pressure readings. EKG shows normal sinus rhythm with RSR normal variant. No acute changes. Assessment & Plan (10/27/2017 10:38 AM CDT): Continue current medications. Continue low salt diet and home blood pressure checks. Recommend regular exercise. Sciatica 08/26/2013 Overview (07/16/2016): SCIATICA Hyperlipidemia 08/26/2013 Overview (07/16/2016): HYPERLIPIDEMIA NEC/NOS Assessment & Plan (10/26/2024 5:20 PM CDT): Continue strict low fat diet and regular exercise to lower cholesterol. Assessment & Plan (03/22/2024 11:25 AM SOAPSTONER): Continue strict low fat diet and regular exercise to lower cholesterol. Assessment & Plan (06/08/2023 3:01 PM SOAPSTONER): Continue strict low fat diet and regular exercise to lower cholesterol. Assessment & Plan (03/17/2023 8:29 PM SOAPSTONER): Continue strict low fat diet and regular [...] Encounters Date Type Department Care Team Description 01/15/2025 11:00 AM CDT Lab [facility] [address] [place] [address] [address] [place] [address] Alzheimer's disease (Primary Dx) 01/08/2025 Telephone [facility] [address] [place] [address] [address] [place] [address] Katiana Johnson, Eileen Schedule Neurodiagnostic Lab 12/18/2024 12:26 PM CDT - 12/18/2024 11:59 PM CDT Hospital Encounter [facility] [address] [place] [phone] Discharge Disposition: Discharge to home or self care 12/18/2024 12:26 PM CDT - 12/18/2024 11:59 PM CDT Hospital Encounter 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, 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); Chronic renal disease, stage II; Edema, unspecified type 10/27/2024 Results Follow-Up [facility] Primary Care at [address] [phone] Faye Alvarado MD CBC with auto differential, Comprehensive metabolic panel, Thyroid Function [place], Additional followed-up results: 5 10/26/2024 12:24 PM CDT - 10/26/2024 11:59 PM CDT Hospital Encounter [address] [phone] Discharge Disposition: Discharge to home or self care 10/26/2024 11:30 AM CDT Office Visit [facility] Primary Care at [address] [phone] Faye Alvarado MD Short-term memory loss (Primary Dx); Stage 3a chronic kidney disease (HCC); Essential hypertension; Disorder of bone and cartilage; Mixed hyperlipidemia 10/26/2024 Orders Only [facility] Primary Care at [address] [phone] Faye Alvarado MD Alzheimer's disease (HCC) (Primary Dx) from Last 3 Months Immunizations Immunization Administration [...] Pcv20 03/22/2024 Pneumococcal Polysaccharide PPV23 10/05/2008 Tdap 12/12/2024,05/13/2010 ZOSTER LIVE 06/30/2011 Surgical History Surgery Date [...] = 0.6 oz pur e alcohol) rarely [facility] Utilities Answer Date Recorded In the past 12 months has th e electric, gas, oil, or water company threatened to shut off services in your home? No 05/07/2023 Social Connection and Isolation Panel Answer Date Recorded In a typical week, how many times do you talk on the phone with family, friends, or neighbors? More than three times a week 05/07/2023 How often do you get togethe r with friends or relatives? More than three times a week 05/07/2023 How often do you attend [facility] or shinto services? More than 4 times per year 05/07/2023 Do you belong to any clubs o r organizations such as alevism groups, unions, fraternal or athletic groups, or [...] place to sleep or slept in a chcf (including now)? No 05/07/2023 Comments No Sex and Gender Information Value Date Recorded Sex Assigned at Not on file Legal Sex Female 11:40 PM SOAPSTONER Gender Identity Female 02/10/2021 6:27 PM CDT Sexual Orientation Not on file Obstetrics History Last Filed Vital Signs Vital Sign Reading Time Taken Comments Blood Pressure 146/92 12/12/2024 12:06 PM CDT Pulse 60 12/12/2024 12:06 PM CDT Temperature 36.7 C (98 F) 12/12/2024 12:06 PM CDT Respiratory Rate 20 12/12/2024 12:06 PM CDT Oxygen Saturation 99% 12/12/2024 12:06 PM CDT Inhaled Oxygen Concentration - - Weight 45.8 kg (101 lb) 12/12/2024 12:06 PM CDT Height 154.3 cm (5' 0.75) 10/26/2024 11:16 AM C DT Body Mass Index 19.24 10/26/2024 11:16 AM CDT Plan of Treatment Health Maintenance Due Date Last Done Comments Hepatitis B Screening 02/08/1958 Zoster Vaccine (2 of 3) 08/25/2011 06/30/2011 Covid-19 Vaccine (5 - 2024-2 6 season) 2024 07/22/2021, 01/23/2021, 05/28/2020, Additional history exists Influenza Vaccine (#1) 2024 , 03/17/2023, 02/03/2022, Additional history exists Depression Screening 03/22/2025 03/22/2024, 03/17/2023, 11/05/2022, Additional history exists Fall Risk Assessment 03/22/2025 03/22/2024, 03/17/2023, 11/05/2022, Additional history exists Well Visit 65+ 03/22/2025 03/22/2024, 09/2022, 02/13/2022, Additional history exists Osteoporosis Screening-Bone Density Scan 12/02/2025 12/03/2023, 12/03/2022, 10/29/2021, Additional history exists DTaP/Tdap/Td Vaccine (3 - Td or Tdap) 12/12/2034 12/12/2024, 05/13/2010 Pneumococcal vaccine 65+ Completed 024, 10/08/2014, 10/05/2008 Procedures Procedure Name Priority Date/Time Associated Diagnosis Comments PET/CT TAU BRAIN IMAGING Schedule Routine, Read Routine (OP Routine) 12/18/2024 3:43 PM CDT Alzheimer's disease WOUND CARE Routine 12/12/2024 6:59 PM CDT Skin tear of right forearm without complication, initial encounter EGFR Routine 10/26/2024 12:18 PM CDT Essential hypertension Mixed hyperlipidemia DIFFERENTIAL AUTO Routine 10/26/2024 12:18 PM CDT Essential hypertension Mixed hyperlipidemia VITAMIN D 25 HYDROXY Routine 10/26/2024 12:18 PM CDT Disorder of bone and cartilage FOLATE Routine 10/26/2024 12:18 PM CDT Short-term memory loss VITAMIN B12 Routine 10/26/2024 12:18 PM CDT Short-term memory loss THYROID FUNCTION CASCADE Routine 10/26/2024 12:18 PM CDT Essential hypertension Mixed hyperlipidemia COMPREHENSIVE METABOLIC PANEL Routine 10/26/2024 12:18 PM CDT Essential hypertension Mixed hyperlipidemia CBC WITH AUTO DIFFERENTIAL Routine 10/26/2024 12:18 PM CDT Essential hypertension Mixed hyperlipidemia DEXA TBS AXIAL SKELETON BONE DENSITY 1 OR MORE SITES Schedule Routine, Read Routine (OP Routine) 12/03/2023 2:02 PM CDT Age-related osteoporosis without current pathological fracture from Last 3 Months or Most Recently Relevant to Health Maintenance Results * Tau PET Brain Imaging for [employer] Research Study (REQUIRED) (12/18/2024 3:43 PM CDT) Anatomical Region Laterality Modality Positron Emissio n Tomography (PET) 12/18/2024 4:59 PM CDT Impressions 12/18/2024 8:24 PM CDT Positive tau-PET study, 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 Dictated by: Rocky Mehta MD The radiology attending physician has personally reviewed this study, and had reviewed and/or edited this written report and agrees with it. Electronically signed by: Suki Connors M.D. Narrative 12/18/2024 8:24 PM CDT EXAMINATION: BRAIN TAU-PET/CT IMAGING DATE OF STUDY: 12/18/2024 SCANNER: [facility] [employer] (NV1). This is a high-resolution scanner, which can result in higher SUVs (and even detection of new small lesions) compared to older scanners. RADIOPHARMACEUTICAL: 10.1 mCi F-18 Flortaucipir i.v. HISTORY: 84-year-old woman with a family history of Alzheimer's disease, with memory loss for over one year, particularly with names. She has had four prior concussions. She is a participant in the [employer] study. TECHNIQUE: At 105 minutes after injection of F-18 Flortaucipir, noncontrast CT images of the head were obtained for attenuation correction and for fusion with emission PET images to allow for anatomical localization of PET findings. Standard emission PET imaging of the brain was then performed. COMPARISON: MRI brain 10/24/2022. FINDINGS: There is increased neocortical activity in the anterior temporal lobes, including the anteromedial and anterolateral regions, as well as the posterolateral temporal lobes bilaterally, more pronounced on the left. There is mild increased activity within the precuneus regions bilaterally. Incidental CT findings: Global dilatation of the ventricular system. Intracranial vascular calcifications. Bilateral lens replacements. Procedure Note Suki Connors MD - 12/18/2024 EXAMINATION: BRAIN TAU-PET/CT IMAGING DATE OF STUDY: 12/18/2024 SCANNER: [facility] [employer] (NV1). This is a high-resolution scanner, which can result in higher SUVs (and even detection of new small lesions) compared to older scanners. RADIOPHARMACEUTICAL: 10.1 mCi F-18 Flortaucipir i.v. HISTORY: 84-year-old woman with a family history of Alzheimer's disease, with memory loss for over one year, particularly with names. She has had four prior concussions. She is a participant in the [facility] study. TECHNIQUE: At 105 minutes after injection of F-18 Flortaucipir, noncontrast CT images of the head were obtained for attenuation correction and for fusion with emission PET images to allow for anatomical localization of PET findings. Standard emission PET imaging of the brain was then performed. COMPARISON: MRI brain 10/24/2022. FINDINGS: There is increased neocortical activity in the anterior temporal lobes, including the anteromedial and anterolateral regions, as well as the posterolateral temporal lobes bilaterally, more pronounced on the left. There is mild increased activity within the precuneus regions bilaterally. Incidental CT findings: Global dilatation of the ventricular system. Intracranial vascular calcifications. Bilateral lens replacements. 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 Dictated by: Rocky Mehta MD The radiology attending physician has personally reviewed this study, and had reviewed and/or edited this written report and agrees with it. Electronically signed by: Suki Connors M.D. Faye Alvarado MD IMG PET PROCEDURE S Final Result * Wound Care (12/12/2024 6:59 PM CDT) Narrative Gorge Hodge NP - 12/12/2024 6:59 PM CDT Gorge Hodge NP 12/12/2024 7:03 PM Wound Care Date/Time: 12/12/2024 6:59 PM Performed by: Gorge Hodge NP Authorized by: Gorge Hodge NP Consent: Consent obtained: Verbal Consent given by: Patient Risks, benefits, and alternatives were discussed: yes Risks discussed: Infection, pain and poor cosmetic result Alternatives discussed: No treatment, observation and referral Prentiss protocol: Procedure explained and questions answered to patient or proxy's satisfaction: yes Patient identity confirmed: Verbally with patient Procedure details: Wound location: right elbow. Wound age (days): 2 Wound surface area (sq cm): 2 Debridement performed: No Dressing: Dressing applied: Telfa pad and Vaseline gauze Wrapped with: Earline 2 inch Post-procedure details: Procedure completion: Tolerated well, no immediate complications Gorge Hodge NP IN CLINIC/BEDSIDE ORDERABLES Fi nal Result * eGFR (10/26/2024 12:18 PM CDT) eGFR 61 >=60 mL/min/1. 73 m2 Comment: Interpretive Data [...] interpretive data was last reviewed 2021. Blood 10/26/2024 12:1 8 PM CDT 10/26/2024 9:17 PM CDT us Faye Alvarado MD LAB BLOOD ORDERAB LES Final Result [facility] [address] Department [place] [address] * (ABNORMAL) Differential, auto (10/26/2024 12:18 PM CDT) Neutrophil abs 4.89 1.50 - 6.50 K/cumm Imm gran abs 0.02 0.00 - 0.10 K/cumm [facility] Lymphocyte abs 0.48(L) 0.80 - 3.30 K/cumm [facility] Monocyte abs 0.66 0.20 - 0.80 K/cumm [facility] Eosinophil abs 0.09 0.00 - 0.50 K/cumm [facility] Basophil abs 0.03 0.00 - 0.10 K/cumm [facility] Neutrophil pct 79.2 % [facility] Comment: Interpretive Data Percent cell count reference ranges are not reported, since discordance with absolute values may lead to misinterpretation of CBC data. Current Interpretive Data was last revised on 2017. Imm gran pct 0.3 % [facility] Comment: Interpretive Data Percent cell count reference ranges are not reported, since discordance with absolute values may lead to misinterpretation of CBC data. Current Interpretive Data was last revised on 2017. Lymphocyte pct 7.8 % [facility] Comment: Interpretive Data Percent cell count reference ranges are not reported, since discordance with absolute values may lead to misinterpretation of CBC data. Current Interpretive Data was last revised on 2017. Monocyte pct 10.7 % [facility] Comment: Interpretive Data Percent cell count reference ranges are not reported, since discordance with absolute values may lead to misinterpretation of CBC data. Current Interpretive Data was last revised on 2017. Eosinophil pct 1.5 % [facility] Comment: Interpretive Data Percent cell count reference ranges are not reported, since discordance with absolute values may lead to misinterpretation of CBC data. Current Interpretive Data was last revised on 2017. Basophil pct 0.5 % [facility] Comment: Interpretive Data Percent cell count reference ranges are not reported, since discordance with absolute values may lead to misinterpretation of CBC data. Current Interpretive Data was last revised on 2017. Blood 10/26/2024 12:1 8 PM CDT 10/26/2024 4:20 PM CDT us Faye Alvarado MD LAB BLOOD ORDERAB LES Final Result Performing Organization Address City/[facility]/ZIP Co de Phone Number [facility] [address] Department [place] [address] * Thyroid Function [place] (10/26/2024 12:18 PM CDT) [facility] TSH 1.54 0.30 - 4.20 mcIUnit/mL Blood 10/26/2024 12:1 8 PM CDT 10/26/2024 9:17 PM CDT us Faye Alvarado MD LAB BLOOD ORDERAB LES Final Result Performing Organization Address City/[facility] Co de Phone Number [facility] [address] [facility] [employer] [place], [place] [id number] * (ABNORMAL) CBC with auto differential (10/26/2024 12:18 PM CDT) [facility] WBC 6.17 3.80 - 9.90 K/cumm Hgb 12.8 11.9 - 15.5 g/dL [facility] Hct 40.0 35.6 - 45.5 % [facility] Plt 212 150 - 400 K/cumm [facility] MPV 9.8 9.1 - 12.3 fL [facility] RBC 4.24 3.90 - 5.20 M/cumm [facility] MCV 94.3 81.3 - 96.4 fL [facility] MCH 30.2 27.1 - 33.3 pg [facility] MCHC 32.0(L) 32.3 - 35.7 g/dL [facility] RDW CV 13.4 11.1 - 14.9 % [facility] RDW SD 46.5 35.7 - 48.1 fL [facility] NRBC abs 0.00 0.00 - 0.01 K/cumm [facility] Blood 10/26/2024 12:1 8 PM CDT 10/26/2024 4:20 PM CDT us Faye Alvarado MD LAB BLOOD ORDERAB LES Final Result [facility] [address] [facility] [place] [address] * (ABNORMAL) Vitamin D 25 hydroxy (10/26/2024 12:18 PM CDT) Pathologist [facility] Vitamin D 25-OH 29(L) 30 - 80 ng/mL Blood 10/26/2024 12:1 8 PM CDT 10/26/2024 9:17 PM CDT us Faye Alvarado MD LAB BLOOD ORDERAB LES Final Result Performing Organization Address City/[facility]/ZIP Co de Phone Number [facility] [address] [facility] [place] [address] * Folate (10/26/2024 12:18 PM CDT) Pathologist [facility] Folic acid 12.5 >=5.0 ng/mL Blood 10/26/2024 12:1 8 PM CDT 10/26/2024 9:17 PM CDT us Faye Alvarado MD LAB BLOOD ORDERAB LES Final Result [facility] [address] [place] [address] * Vitamin B12 (10/26/2024 12:18 PM CDT) Pathologist [facility] Vitamin B12 256 230 - 1,250 pg/mL Blood 10/26/2024 12:1 8 PM CDT 10/26/2024 9:17 PM CDT us Faye Alavrado MD LAB BLOOD ORDERAB LES Final Result [facility] [address] Department [place] [address] * (ABNORMAL) Comprehensive metabolic panel (10/26/2024 12:18 PM CDT) [facility] Sodium 140 135 - 145 mmol/L Potassium, pl 4.5 3.3 - 4.9 mmol/L [facility] Chloride 103 97 - 110 mmol/L [facility] CO2 23 22 - 32 mmol/L [facility] Anion gap 14 2 - 15 mmol/L [facility] BUN 21 6 - 25 mg/dL [facility] Creatinine 0.93 0.60 - 1.10 mg/dL [facility] Glucose 79 70 - 199 mg/dL [facility] Comment: Interpretive Data Fasting glucose >/= 126 [...] interpretive data was last revised 2022. Calcium 9.4 8.5 - 10.3 mg/dL [facility] Bilirubin, total 0.4 0.1 - 1.2 mg/dL [facility] Protein, pl 6.2(L) 6.5 - 8.5 g/dL [facility] Albumin 4.2 3.5 - 5.0 g/dL [facility] Alk phos 55 40 - 130 Units/L [facility] ALT 18 7 - 45 Units/L [facility] AST 29 10 - 45 Units/L [facility] Blood 10/26/2024 12:1 8 PM CDT 10/26/2024 9:17 PM CDT us Faye Alvarado MD LAB BLOOD ORDERAB LES Final Result [facility] [address] Department [place] [address] * Dexa TBS Axial Skeleton Bone Density 1 or more sites (12/03/2023 2:02 PM CDT) Anatomical Region Laterality Modality Wrist, Body N/A Radiographic Kyra ging Narrative 12/03/2023 5:41 PM CDT Patient Name: Jia Sequeira Date of : 1940 Date of scan: 12/03/2023 Bone mineral density was performed on a Hol[employer] Discovery Densitometer. Based on machine cross-calibration and [...] by the International Society of Clinical Densitometry. [id number] Dina Clinton [facility] DXA PROCEDURES Final Result from Last 3 Months or Most Recently Relevant to Health Maintenance Insurance MEDICARE [facility] MEDICARE [facility] MEDICARE SUPPLEMENT MEDICARE [facility] MEDICARE SUPPLEMENT Advance Directives For more information, please contact: [phone] Documents on File Type Date Recorded Patient Logistics Administrator Expl anation ADVANCE DIRECTIVE 05/07/2019 ADVANCE DIRECTIVE 02/21/2019 Care Teams Trouble Locator Test Desk Relationship Specialty Start Date End Date Faye Alvarado MD [address] [address] PCP - General 04/18/09 Beckie Ansari MD 10 [facility] [address] [place] [address] Referring Physician Endocrinology Diabetes & Metabolism 02/01/19 Tyrell Alvarez MD 10 [facility] [address] [place] [address] Referring Physician Orthopedic Surgery 02/01/19 Estella Robles MD [address] [facility] [address], [place] [address] Consulting Physician Dermatology 02/01/19 Colby Townsend DPM [address] [facility] [address], [place] [address] Referring Physician Foot and Ankle Surg 02/01/19
--- OUTSIDE RECORDS SUMMARY | 2025-01-22 17:00 | XMS_ITS | Encounter Summary ---
Author Organization [facility] Address [address] [place] [address] Care Team Providers Care Dean Of Men Name Role Phone Unavailable Primary Care Provider Unavailabl e Encounter Details Date Type Department Care Team (Late st Contact Info) Description 05/31/2023 Lab Requisition [facility] Derm[facility] Lab [address] [facility] [place] [address] Ira Casey MD [address] [facility] [address] [place] [address] Social History Tobacco Use Types Packs/Day Years [...]
[2025-01-22 17:25] LABS: Hematocrit 37.7 % (37.0-47.0); Hemoglobin 12.2 g/dL (12.0-15.0); Mean Corpuscular HGB Conc 32.4 g/dl (32-36); Mean Corpuscular Hemoglobin 30.3 pg (26-34); Mean Corpuscular Volume 93.5 fl (80-100); Platelet Count Result 176 k/mm3 (150-375); Red Blood Count 4.03 M/mm3 (4.2-5.4); White Blood Count 5.6 K/mm3 (4.5-10.0)
[2025-01-22 17:33] LABS: Add Urine Microscopic? YES; Appearance Urine Clear (Clear); Glucose Urine UA Negative (Negative); Leukocyte Esterase Ur 1+ LEU/UL (Negative); Nitrate Urine Negative (Negative); Non Pathogenic Casts 0-2; Specific Grav Ur 1.014 (1.001-1.035)
[2025-01-22 17:49] LABS: Albumin Level 3.9 g/dL (3.5-5.1); Anion Gap 6 mmol/L (4-12); Blood Urea Nitrogen 22 mg/dL (7-17); Calcium 8.8 mg/dL (8.4-10.2); Carbon Dioxide 24 mmol/L (22-30); Chloride 102 mmol/L (98-107); Estimated Glomerular Filt Rate 59; Glucose 88 mg/dL (65-110); Potassium 4.3 mmol/L (3.4-5.0); Sodium 132 mmol/L (137-145)
[2025-01-22 18:02] LABS: Parathyroid Intact 45.3 pg/mL (14.5-75.2)
== END 2025-01-22 16:58 | disposition home or self-care (01) ==
LOC: ANHLAB 16:58
PROVIDERS: Visit Provider Internal Medicine Nephrology
DX: I12.9 Hypertensive chronic kidney disease with stage 1 through stage 4 chronic kidney disease, or unspecified chronic kidney disease (principal); N18.2 Chronic kidney disease, stage 2 (mild); M19.90 Unspecified osteoarthritis, unspecified site
CPT/HCPCS: 36415; 80069; 81001; 83970; 85027

== ENCOUNTER 2025-01-25 14:27 | Outpatient (CLI) | payer MEDICARE, SELFPAY ==
--- OUTSIDE RECORDS SUMMARY | 2009-03-22 09:30 | XMS_ITS | Continuity of Care Document ---
Author Organization [facility] Address [address] [place] [address] Phone Care Team Providers Care Hospital Food Service Worker Name Role Phone Pond OD, Michele Unavailable Unavailable Procedures Procedure Date Eye Exam & Treatment No Script Refraction Advance Directives Directive Yes / No Effective Date File Name No Information Encounters Encounter Description Practice Location Reason(s) For Visit Diagnoses Date Provider Providers Copied on Encounter [facility], [address], [place], [place], [id number], [place] tel:[phone] [facility] No Information [address] Pond OD Michele. [address] , [address], [place], [address], [place]. tel:[phone] Family History Family Member Type Diagnosis Age At Onset No Information Payers Payer name Insurance type Covered libertarian ID Authoriza tion(s) [place] [id number] [place] [id number] Social History Type Description Quantity Date Captured [...]
--- NOTE | ~2025-01-25 | MR_ITS ---
EXAMINATION: MR cervical spine wo con DATE: 01/25/2025 15:10 INDICATION: Radiculopathy, cervical region. TECHNIQUE: Magnetic resonance imaging (MRI) of the cervical spine was performed without intravenous contrast. COMPARISON: None FINDINGS: There is 2 mm anterolisthesis of C3 on C4, 2 mm retrolisthesis of C4 on C5, C5 on C6, and C6 on C7, and 2 mm anterolisthesis of C7 on T1. Vertebral body heights are normal. There is severely decreased disc height from C3-C4 through C6-C7. The spinal cord signal intensity is normal. The following disc levels are specifically discussed: C2-C3: There is a central extrusion. There is mild left uncovertebral joint osteoarthritis. There is severe bilateral facet joint osteoarthritis. There is mild right neural foraminal stenosis. There is mild central canal stenosis. C3-C4: The disc does not extend beyond the endplate margin. There is severe right and moderate left uncovertebral joint osteoarthritis. There is severe left facet joint osteoarthritis. There is ankylosis of right facet joint with severe hypertrophy. There is moderate right and mild left neural foraminal stenosis. There is mild central canal stenosis with ventral indentation of the spinal cord. C4-C5: The disc is bulging. There is severe bilateral uncovertebral joint osteoarthritis. There is severe bilateral facet joint osteoarthritis. There is moderate bilateral neural foraminal stenosis. There is mild central canal stenosis with ventral indentation of the spinal cord. C5-C6: The disc is bulging. There is severe bilateral uncovertebral joint osteoarthritis. There is severe bilateral facet joint osteoarthritis. There is moderate bilateral neural foraminal stenosis. There is severe central canal stenosis with ventral and dorsal indentation of the spinal cord. C6-C7: The disc is bulging. There is severe bilateral uncovertebral joint osteoarthritis. There is moderate bilateral facet joint osteoarthritis. There is moderate right and severe left neural foraminal stenosis. There is severe central canal stenosis with ventral and dorsal indentation of the spinal cord. C7-T1: There is a central extrusion. There is mild bilateral uncovertebral joint osteoarthritis. There is severe bilateral facet joint osteoarthritis. There is mild bilateral neural foraminal stenosis. There is mild central canal stenosis. IMPRESSION: 1. Severe cervical spondylosis. Reviewed, dictated and finalized at location E.
--- OUTSIDE RECORDS SUMMARY | 2025-01-25 16:35 | XMS_ITS | Clinical Summary ---
Author Organization [facility] Address [address] [place] [address] Care Team Providers Care Information Technology Associate Name Role Phone Faye Alvarado MD Primary Care Pro vider Beckie Ansari MD Unavailable [phone] Tyrell Alvarez MD Unavailable [phone] Estella Robles MD Unavailable [phone] Colby Townsend DPM Unavailable [phone] Allergies Active Allergy Reactions Criticality Noted Date [...] Schedule Tau Pet scan. Follow up with [facility] Arthralgia 03/22/2024 Assessment & Plan (03/22/2024 11:28 AM [employer]): Bilateral hip, hand, wrist, knee pain and lower back pain- refer to rheumatology to evaluate for inflammatory arthritis. Age-related osteoporosis wit hout current pathological fracture 12/03/2023 Assessment & Plan (03/22/2024 11:26 AM [employer]): Check vitamin D. Patient will get labs [...] nephrology Assessment & Plan (05/05/2023 2:56 PM [employer]): Chronic, follows with nephrology. Follow up as scheduled. Hospital discharge follow-up 05/05/2023 Assessment & Plan (05/05/2023 2:56 PM [employer]): [employer]Comfort NP have personally reviewed pertinent inpatient and/or ED records, including discharge medications and Clindesk if applicable. This patient's discharge medication list has been reviewed and reconciled with her outpatient medication list and has also been reviewed with patient and/or caregiver. I have noted any changes. S/P right hip fracture 05/05/2023 Closed fracture of right hip 05/05/2023 Assessment & Plan (05/05/2023 2:57 PM [employer]): New problem, s/p total hip replacement. Home health ordered. Lives alone, needs help with transportation, ACO referral placed. Acute midline thoracic back pain 05/05/2023 Assessment & Plan (05/05/2023 2:58 PM [employer]): New problem since falling. X-rays were done at outside hospital but I have no records from the hospitalization. Pain is ongoing, requiring tramadol. Updated x-ray of thoracic and lumbar ordered to r/o compression fracture. Heart murmur 03/17/2023 Assessment & Plan (03/22/2024 11:54 AM [employer]): Had echocardiogram in March last year and no significant valvular heart disease and LV function was normal. Assessment & Plan (03/17/2023 8:28 PM [employer]): Schedule echocardiogram Weight loss 10/16/2022 Assessment & Plan (10/18/2022 9:19 PM CDT): New problem. Check CBC, TSH, CMP Fatigue 10/16/2022 Assessment & Plan (10/18/2022 9:20 PM CDT): New problem. Check CBC, TSH, CMP Dyspnea on exertion 10/16/2022 Assessment & Plan (03/22/2024 11:55 AM [employer]): If symptoms worsen then consider referral to [...] 02/13/2022 Assessment & Plan (06/08/2023 3:01 PM [employer]): Reviewed fall risk and fall assessment. Reviewed [...] 06/06/2021 Assessment & Plan (06/06/2021 11:13 AM [employer]): Longstanding right ht Pt denies signs and [...] 06/04/2020 Assessment & Plan (06/06/2021 11:17 AM [employer]): Continue retaine prn Posterior vitreous detachment of both eyes 06/04 Assessment & Plan (06/29/2024 1:39 PM CDT): Stable. Observe. The signs and symptoms of retinal detachment were reviewed. Advised urgent evaluation with any onset. Pseudophakia, both eyes 06/04/2020 Assessment & Plan (06/29/2024 1:39 PM CDT): Clear. Otc readers prn. Assessment & Plan (06/06/2021 11:16 AM [employer]): Lenses centered and stable, monitor Ptosis of left eyelid 06/04/2020 Assessment & Plan (06/29/2024 1:39 PM CDT): Offered surgical consult but pt elects observation Assessment & Plan (06/06/2021 12:30 PM [employer]): Stable, monitor Paresthesia 10/10/2019 Assessment & Plan (10/10/2019 12:42 PM CDT): Worsening problem. Refer to Neurology Body mass index (BMI) 19.9 or less, adult 2018 Assessment & Plan (06/08/2023 2:59 PM [employer]): Patient is thin, but healthy Assessment & [...] exercise. Assessment & Plan (04/27/2019 11:33 AM [employer]): Weight is stable and unchanged for patient. Assessment & Plan (02/01/2019 5:14 PM CDT): Patient is thin, but is healthy Grief 02/01/2019 Assessment & Plan (02/01/2019 5:16 PM CDT): This is related to her who has in November 2018. We discussed local measures to treat grief and bereavement. Advised to enlist help of family, friends and muslim. There are no signs or symptoms of major depression BMI 20.0-20.9, adult 10/27/2017 Assessment & Plan (03/17/2023 8:27 PM [employer]): Patient at healthy weight. Continue healthy diet- [...] 10/27/2017 Assessment & Plan (06/08/2023 3:00 PM [employer]): Continue current medications and call if problems [...] 07/21/2017 Assessment & Plan (06/08/2023 2:59 PM [employer]): Continue current medications and call if problems or side effects. Follow up with bone health Assessment & Plan (05/05/2023 2:56 PM [employer]): Chronic, on reclast. Continue to follow up with bone health Assessment & Plan (03/17/2023 8:27 PM [employer]): Check vitamin D level Assessment & Plan [...] 10/21/2016 Assessment & Plan (03/17/2023 8:28 PM [employer]): Reviewed fall risk and fall assessment. Patient [...] allergic rhinitis. Advised the patient to use mjat-[id number] antihistamine or [id number]-[id number] nasal spray Medicare annual wellness visit, subsequent 10/20 Assessment & Plan (03/22/2024 11:26 AM [employer]): Plan as below Assessment & Plan (03/17/2023 8:29 PM [employer]): Patient here for annual Medicare wellness visit [...] pressure Assessment & Plan (06/08/2023 2:59 PM [employer]): Continue current medications. Continue low salt diet, home blood pressure checks and low salt diet. Avoid NSAIDs and decongestants which may raise blood pressure Assessment & Plan (05/05/2023 2:55 PM [employer]): Chronic, uncontrolled. Was started on hydralazine 12.5 mg TID while in the hospital. Amlodipine was restarted as well. She has peripheral edema historically with higher doses of amlodipine. Increase losartan to 100 mg daily, will need to follow up BMP to monitor her CKD. Will follow up in the office in 1 month. Assessment & Plan (03/17/2023 8:34 PM [employer]): Patient is stopping amlodipine due to peripheral [...] at home and will communicate readings via [employer]. She will call in 1 week [...] cholesterol. Assessment & Plan (03/22/2024 11:25 AM [employer]): Continue strict low fat diet and regular exercise to lower cholesterol. Assessment & Plan (06/08/2023 3:01 PM [employer]): Continue strict low fat diet and regular exercise to lower cholesterol. Assessment & Plan (03/17/2023 8:29 PM [employer]): Continue strict low fat diet and regular [...] Team Description 01/15/2025 11:00 AM CDT Lab [facility] [address] [place] [address] [address] [place] [address] Alzheimer's disease (Primary Dx) 01/08/2025 Telephone [facility] [address] [place] [address] [address] [place] [address] Katiana Johnson, Eileen Schedule Neurodiagnostic Lab 12/18/2024 12:26 PM CDT - 12/18/2024 11:59 PM CDT Hospital Encounter [facility] [address] [place] [address] Discharge Disposition: Discharge to home or self care 12/18/2024 12:26 PM CDT - 12/18/2024 11:59 PM CDT Hospital Encounter [facility] [address] [place] [address] Alzheimer's disease Discharge Disposition: Discharge to home or self care 12/12/2024 12:15 PM CDT Office Visit [facility] Care at [address] [phone] Gorge Hodge NP Skin tear of right forearm without complication, initial encounter (Primary Dx) 11/26/2024 Orders Only [facility] [address] [place] [phone] Belle Alegria MD 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, 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); Chronic renal disease, stage II; Edema, unspecified type 10/27/2024 Results Follow-Up [facility] Primary Care at [address] [phone] Faye Alvarado MD CBC with auto differential, Comprehensive metabolic panel, Thyroid Function [place], Additional followed-up results: 5 10/26/2024 12:24 PM CDT - 10/26/2024 11:59 PM CDT Hospital Encounter [address] [phone] Discharge Disposition: Discharge to home or self care 10/26/2024 11:30 AM CDT Office Visit [facility] Primary Care at [address] [phone] Faye Alvarado MD Short-term memory loss (Primary Dx); Stage 3a chronic kidney disease (HCC); Essential hypertension; Disorder of bone and cartilage; Mixed hyperlipidemia 10/26/2024 Orders Only [facility] Primary Care at [address] [phone] Faye Alvarado MD Alzheimer's disease (HCC) (Primary [...] = 0.6 oz pur e alcohol) rarely [facility] Utilities Answer Date Recorded In [...] week 05/07/2023 How often do you attend [facility] or temple services? More than 4 times per year 05/07/2023 Do you belong to any clubs o r organizations such as muslim groups, unions, fraternal or athletic groups, or [...] place to sleep or slept in a fdc (including now)? No 05/07/2023 Comments No Sex and Gender Information Value Date Recorded Sex Assigned at Not on file Legal Sex Female 11:40 PM [employer] Gender Identity Female 02/10/2021 6:27 PM CDT [...] 12/18/2024 SCANNER: [facility] Souqalmal (NV1). This is a high-resolution scanner, which [...] TAU-PET/CT IMAGING DATE OF STUDY: 12/18/2024 SCANNER: [facility] [employer] (NV1). This is a high-resolution scanner, which [...] Alternatives discussed: No treatment, observation and referral [place] protocol: Procedure explained and questions answered to [...] MD LAB BLOOD ORDERAB LES Final Result [facility] [address] Department [place] [address] * (ABNORMAL) Differential, auto (10/26/2024 12:18 PM CDT) Neutrophil abs 4.89 1.50 - 6.50 K/cumm Imm gran abs 0.02 0.00 - 0.10 K/cumm [facility] Lymphocyte abs 0.48(L) 0.80 - 3.30 K/cumm [facility] Monocyte abs 0.66 0.20 - 0.80 K/cumm [facility] Eosinophil abs 0.09 0.00 - 0.50 K/cumm [facility] Basophil abs 0.03 0.00 - 0.10 K/cumm [facility] Neutrophil pct 79.2 % [facility] Comment: Interpretive Data Percent cell count reference ranges are not reported, since discordance with absolute values may lead to misinterpretation of CBC data. Current Interpretive Data was last revised on 2017. Imm gran pct 0.3 % [facility] Comment: Interpretive Data Percent cell count reference ranges are not reported, since discordance with absolute values may lead to misinterpretation of CBC data. Current Interpretive Data was last revised on 2017. Lymphocyte pct 7.8 % [facility] Comment: Interpretive Data Percent cell count reference ranges are not reported, since discordance with absolute values may lead to misinterpretation of CBC data. Current Interpretive Data was last revised on 2017. Monocyte pct 10.7 % [facility] Comment: Interpretive Data Percent cell count reference ranges are not reported, since discordance with absolute values may lead to misinterpretation of CBC data. Current Interpretive Data was last revised on 2017. Eosinophil pct 1.5 % [facility] Comment: Interpretive Data Percent cell count reference ranges are not reported, since discordance with absolute values may lead to misinterpretation of CBC data. Current Interpretive Data was last revised on 2017. Basophil pct 0.5 % [facility] Comment: Interpretive Data Percent cell count reference ranges are not reported, since discordance with absolute values may lead to misinterpretation of CBC data. Current Interpretive Data was last revised on 2017. Blood 10/26/2024 12:1 8 PM CDT 10/26/2024 4:20 PM CDT us Faye Alvarado MD LAB BLOOD ORDERAB LES Final Result Performing Organization Address City/[facility]/ZIP Co de Phone Number [facility] [address] [place] [employer] [place] [address] * Thyroid Function [place] (10/26/2024 12:18 PM CDT) [facility] TSH 1.54 0.30 - 4.20 mcIUnit/mL Blood 10/26/2024 12:1 8 PM CDT 10/26/2024 9:17 PM CDT us Faye Alvarado MD LAB BLOOD ORDERAB LES Final Result Performing Organization Address City/[facility] Co de Phone Number [facility] [address] [facility] [employer] [place], [place] [phone] * (ABNORMAL) CBC with auto differential (10/26/2024 12:18 PM CDT) [facility] WBC 6.17 3.80 - 9.90 K/cumm Hgb 12.8 11.9 - 15.5 g/dL [facility] Hct 40.0 35.6 - 45.5 % [facility] Plt 212 150 - 400 K/cumm [facility] MPV 9.8 9.1 - 12.3 fL [facility] RBC 4.24 3.90 - 5.20 M/cumm [facility] MCV 94.3 81.3 - 96.4 fL [facility] MCH 30.2 27.1 - 33.3 pg [facility] MCHC 32.0(L) 32.3 - 35.7 g/dL [facility] RDW CV 13.4 11.1 - 14.9 % [facility] RDW SD 46.5 35.7 - 48.1 fL [facility] NRBC abs 0.00 0.00 - 0.01 K/cumm [facility] Blood 10/26/2024 12:1 8 PM CDT 10/26/2024 4:20 PM CDT us Faye Alvarado MD LAB BLOOD ORDERAB LES Final Result [facility] [address] [facility] [place] [place] [address] * (ABNORMAL) Vitamin D 25 hydroxy (10/26/2024 12:18 PM CDT) Pathologist [facility] Vitamin D 25-OH 29(L) 30 - 80 ng/mL Blood 10/26/2024 12:1 8 PM CDT 10/26/2024 9:17 PM CDT us Faye Alvarado MD LAB BLOOD ORDERAB LES Final Result Performing Organization Address City/[facility]/ZIP Co de Phone Number [facility] [address] [facility] [place] [address] * Folate (10/26/2024 12:18 PM CDT) Pathologist [facility] Folic acid 12.5 >=5.0 ng/mL Blood 10/26/2024 12:1 8 PM CDT 10/26/2024 9:17 PM CDT us Faye Alvarado MD LAB BLOOD ORDERAB LES Final Result [facility] [address] [place] [place] [address] * Vitamin B12 (10/26/2024 12:18 PM CDT) Pathologist [facility] Vitamin B12 256 230 - 1,250 pg/mL Blood 10/26/2024 12:1 8 PM CDT 10/26/2024 9:17 PM CDT us Faye Alvarado MD LAB BLOOD ORDERAB LES Final Result [facility] [address] Department [place] [address] * (ABNORMAL) Comprehensive metabolic panel (10/26/2024 12:18 PM CDT) [facility] Sodium 140 135 - 145 mmol/L Potassium, pl 4.5 3.3 - 4.9 mmol/L [facility] Chloride 103 97 - 110 mmol/L [facility] CO2 23 22 - 32 mmol/L [facility] Anion gap 14 2 - 15 mmol/L [facility] BUN 21 6 - 25 mg/dL [facility] Creatinine 0.93 0.60 - 1.10 mg/dL [facility] Glucose 79 70 - 199 mg/dL [facility] Comment: Interpretive Data Fasting glucose [...] 2022. Calcium 9.4 8.5 - 10.3 mg/dL [facility] Bilirubin, total 0.4 0.1 - 1.2 mg/dL [facility] Protein, pl 6.2(L) 6.5 - 8.5 g/dL [facility] Albumin 4.2 3.5 - 5.0 g/dL [facility] Alk phos 55 40 - 130 Units/L [facility] ALT 18 7 - 45 Units/L [facility] AST 29 10 - 45 Units/L [facility] Blood 10/26/2024 12:1 8 PM CDT 10/26/2024 9:17 PM CDT us Faye Alvarado MD LAB BLOOD ORDERAB LES Final Result [facility] [address] Department [place] [address] * Dexa TBS Axial Skeleton Bone Density 1 or more sites (12/03/2023 2:02 PM CDT) Anatomical Region Laterality Modality Wrist, Body N/A Radiographic Kyra ging Narrative 12/03/2023 5:41 PM CDT Patient Name: Jia Sequeira Date of : 1940 Date of scan: 12/03/2023 Bone mineral density was performed on a [employer] Discovery Densitometer. Based on machine cross-calibration and [...] by the International Society of Clinical Densitometry. [id number] Dina Clinton [facility] DXA PROCEDURES Final Result from Last 3 Months or Most Recently Relevant to Health Maintenance Insurance MEDICARE [facility] MEDICARE [facility] MEDICARE SUPPLEMENT MEDICARE [facility] MEDICARE SUPPLEMENT Advance Directives For more information, please contact: [phone] Documents on File Type Date Recorded Patient Ophthalmic Nurse Expl anation ADVANCE DIRECTIVE 05/07/2019 ADVANCE DIRECTIVE 02/21/2019 Care Teams Information Technology Associate Relationship Specialty Start Date End Date Faye Alvarado MD [address] [address] PCP - General 04/18/09 Beckie Ansari MD 10 [facility] [address] [place] [address] Referring Physician Endocrinology Diabetes & Metabolism 02/01/19 Tyrell Alvarez MD 10 [facility] [address] [place] [address] Referring Physician Orthopedic Surgery 02/01/19 Estella Robles MD [address] [facility] [address], [place] [address] Consulting Physician Dermatology 02/01/19 Colby Townsend DPM [address] [facility] [address], [place] [address] Referring Physician Foot and Ankle Surg 02/01/19
--- OUTSIDE RECORDS SUMMARY | 2025-01-25 16:35 | XMS_ITS | Clinical Summary ---
Author Organization [facility] Address [address] [place] [address] Care Team Providers Care Horticulture Instructor Name Role Phone Unavailable Primary Care Provider Unavailabl e Source Comments [facility],non-owned Affiliates and Associated Physician Practices is amultiple site organization consisting of ambulatory clinics and hospital sitesin [place], [place], [place] and [place]. This disclosure is being madepursuant to the Care Everywhere program and may not contain all information available regarding this patient. Last updated 17.[facility] Allergies No known active allergies Medications * [...] patient's age to complete this topic Insurance [facility] MEDICARE ANTHEM SELF PAY NO INSURANCE Member Subscriber Plan / Payer (Ef fective for All Dates) Name:Jia Ferrari Member ID:Not on file Relation to Subscriber:Not on file Name:JIA FERRARI Subscriber ID:Not on file (Home) Address: [address] [place] [id number] Payer ID:Not on file Group ID:Not on file Type:Self Pay Address: [place], [place] MEDICARE ANTHEM
--- OUTSIDE RECORDS SUMMARY | 2025-01-25 16:35 | XMS_ITS | Patient Health Record ---
Author Organization [facility] yan Address [address] [facility] [facility] [place] [address] Support Name Relationship Address Phone Hilario Leonardo Emergency Contact Unknown Jia Sequeira Guarantor Unknown [phone] Allergies No Known Allergies Reason For Referral No Information Problems Problem Type SNOMED Code ICD Code Onset Dates Problem Status W/U Status Risk Notes Problem Actinic keratosis (175579) Actinic keratosis (L57.0) Active confirmed Plan Of Treatment No Information Insurance Providers Payer Name Payer Address Payer Phone Subscriber Number Group Number Insured Name Patient Relationship to Insured Coverage Start Date Coverage End Date DO NOT USE AR [id number] Jia Sequeira Self - patient is the insured 9 [place] [address] [place] [address] [id number] Jia Sequeira Self - patient is the insured 1 [employer] [place] [address] [place] [address] [id number] Jia Sequeira Self - patient is the insured 1
--- OUTSIDE RECORDS SUMMARY | 2025-01-25 16:35 | XMS_ITS | Clinical Summary ---
Author Organization [facility] Address [address] [place] [address] Phone Care Team Providers Care Fiberglass Auto Body Repairer Name Role Phone Faye Alvarado MD Primary Care Provider Allergies No known active allergies Medications triamterene-hydr ochlorothiazide (DYAZIDE) 37.5-25 mg capsule Take 1 Cap by mouth daily wood pole treater. Active celecoxib (CELEBREX) 200 mg capsule Take [...] Comments Blood Pressure 128/88 02/13/2014 3:08 PM TESTING AND REGULATING CHIEF Pulse 64 02/13/2014 3:08 PM TESTING AND REGULATING CHIEF Temperature - - Respiratory Rate - - Oxygen Saturation 96% 02/13/2014 3:08 PM TESTING AND REGULATING CHIEF Inhaled Oxygen Concentration - - Weight 51.3 kg (113 lb) 02/13/2014 3:08 PM TESTING AND REGULATING CHIEF Height 157.5 cm (5' 2) 02/13/2014 3:08 PM TESTING AND REGULATING CHIEF Body Mass Index 20.67 02/13/2014 3:08 PM TESTING AND REGULATING CHIEF Plan of Treatment Health Maintenance Due Date [...] A AND B BCBS SUPP Care Teams Fiberglass Auto Body Repairer Relationship Specialty Start Date End Date Faye Alvarado MD [address] [phone] PCP - General Internal Medicine 10/05/13
--- OUTSIDE RECORDS SUMMARY | 2025-01-25 16:35 | XMS_ITS | Encounter Summary ---
Author Organization [facility] Address [address] [place] [address] Care Team Providers Care Chief Juvenile Probation Officer Name Role Phone Unavailable Primary Care Provider Unavailabl e Encounter Details Date Type Department Care Team (Late st Contact Info) Description 09/06/2024 Lab Requisition [facility] - Pathology Lab [address] [place] [address] Bobby Finley MD [address] [address] Dysphagia, unspecified Social History Tobacco [...] 12:00 PM CDT) Client Specimen ID # [id number] 01/12/2025 11:17 AM CDT [facility] PATH[facility]Y LAB Number of Blocks Received 0 01/12/2025 11:17 AM CDT [facility] PATHOLOGY LAB Number of Slides 1 01/12/2025 11:17 AM CDT [facility] PATHOLOGY LAB Number of Control Slides 1 01/12/2025 11:17 AM CDT [facility] PATHOLOGY LAB Pathology/Cytolo gy SLIDE / Unknown 09/05/2024 12:00 PM CDT 09/06/2024 3:13 PM CDT us Bobby Finley MD LAB - PATHOLOGY/CYTOLOGY ORDERAB LES Final Result Performing Organization Address City/State/[facility] Co de Phone Number [facility] PATHOLOGY LAB [address] [phone] documented in this encounter Visit Diagnoses Diagnosis Dysphagia, unspecified documented in this encounter
--- OUTSIDE RECORDS SUMMARY | 2025-01-25 16:35 | XMS_ITS | Encounter Summary ---
Author Organization [facility] Address [address] [facility] [place] [address] Care Team Providers Care Asset Analyst Name Role Phone Unavailable Primary Care Provider Unavailabl e Encounter Details Date Type Department Care Team (Late st Contact Info) Description 05/31/2023 Lab Requisition [facility] - DermPath Lab [address] [facility], [place] [address] Ira Casey MD [address] [facility] [address] [place] [address] Social History Tobacco Use Types Packs/Day Years [...]
== END 2025-01-25 14:28 | disposition home or self-care (01) ==
PROVIDERS: Visit Provider Nurse Practitioner Adult Health
DX: M43.02 Spondylolysis, cervical region (principal)
CPT/HCPCS: 72141

== ENCOUNTER 2025-02-01 14:04 | Outpatient (CLI) | payer MEDICARE, SELFPAY ==
--- NOTE | ~2025-02-01 | XR_ITS ---
XR cervical spine 4-5V Indication: M54.12 - Radiculopathy, cervical region Comparison: None Findings: Grade 1 anterolisthesis of C3 on C4, no fracture identified, no subluxation with extension or flexion. Severe loss of disc height at C3-4-5 C5-6 and C6-7. Soft tissues unremarkable Impression: No acute abnormality. Reviewed, dictated and finalized at location P. Impression: No acute abnormality.
--- NOTE | ~2025-02-01 | XR_ITS ---
XR lumbar spine min 4V Indication: Z98.890 - Other specified postprocedural states Comparison: None Findings: Complex scoliosis. Moderate loss of vertebral height. Posterior fixation of S1, L5, L4 on L3 with disc prostheses L5-S1, the hardware is intact, no acute fracture. No subluxation flexion and extension. Severe loss of the remaining disc heights. Soft tissues unremarkable Impression: No acute abnormality. Reviewed, dictated and finalized at location P. Impression: No acute abnormality.
--- OUTSIDE RECORDS SUMMARY | 2025-02-01 15:10 | XMS_ITS | Clinical Summary ---
Author Organization [facility] [employer] Address [address] [facility] [place] [address] Care Team Providers Care Department Supervisor Name Role Phone Unavailable Primary Care Provider Unavailabl e Source Comments [facility] [employer],non-owned Affiliates and Associated Physician Practices is amultiple site organization consisting of ambulatory clinics and hospital sitesin [place], [place] and [place]. This disclosure is being madepursuant to the Care Everywhere program and may not contain all information available regarding this patient. Last updated 17.[facility] [employer] Allergies No known active allergies Medications * [...] patient's age to complete this topic Insurance [facility] MEDICARE ANTHEM SELF PAY NO INSURANCE Member Subscriber Plan / Payer (Ef fective for All Dates) Name:Jia Ferrari Member ID:Not on file Relation to Subscriber:Not on file Name:JIA FERRARI Subscriber ID:Not on file (Home) Address: [address] [place] [id number] Payer ID:Not on file Group ID:Not on file Type:Self Pay Address: [place], [place] MEDICARE ANTHEM
--- OUTSIDE RECORDS SUMMARY | 2025-02-01 15:10 | XMS_ITS | Clinical Summary ---
Author Organization [facility] Address [address] 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 Active celecoxib (CELEBREX) 200 mg capsule Take [...] Comments Blood Pressure 128/88 02/13/2014 3:08 PM SENIOR TECHNICAL SUPPORT ENGINEER Pulse 64 02/13/2014 3:08 PM SENIOR TECHNICAL SUPPORT ENGINEER Temperature - - Respiratory Rate - - Oxygen Saturation 96% 02/13/2014 3:08 PM SENIOR TECHNICAL SUPPORT ENGINEER Inhaled Oxygen Concentration - - Weight 51.3 kg (113 lb) 02/13/2014 3:08 PM SENIOR TECHNICAL SUPPORT ENGINEER Height 157.5 cm (5' 2) 02/13/2014 3:08 PM SENIOR TECHNICAL SUPPORT ENGINEER Body Mass Index 20.67 02/13/2014 3:08 PM SENIOR TECHNICAL SUPPORT ENGINEER Plan of Treatment Health Maintenance Due Date [...] A AND B BCBS SUPP Care Teams Putty And Patch Worker Relationship Specialty Start Date End Date Faye Alvarado MD [address] [phone] PCP - General Internal Medicine 10/05/13
--- OUTSIDE RECORDS SUMMARY | 2025-02-01 15:10 | XMS_ITS | Encounter Summary ---
Author Organization [facility] Address [address] [place] [address] Care Team Providers Care Slot Operations Director Name Role Phone Unavailable Primary Care Provider Unavailabl e Encounter Details Date Type Department Care Team (Late st Contact Info) Description 05/31/2023 Lab Requisition [facility] - [facility]erm[facility] Lab [address] [facility], [place] [address] Ira Casey MD [address] [facility] [address] [place] [address] Social History Tobacco Use Types Packs/Day Years [...]
--- OUTSIDE RECORDS SUMMARY | 2025-02-01 15:11 | XMS_ITS | Encounter Summary ---
Author Organization [facility] Address [address] [facility] [address] Care Team Providers Care Slag Production Worker Name Role Phone Unavailable Primary Care Provider Unavailabl e Encounter Details Date Type Department Care Team (Late st Contact Info) Description 09/06/2024 Lab Requisition [facility] - Pathology Lab [address] [place] [address] Bobby Finley MD [address] [address] Dysphagia, unspecified Social History Tobacco [...] 12:00 PM CDT) Client Specimen ID # [id number] 01/12/2025 11:17 AM CDT U PATHOLOGY LAB Number of Blocks Received 0 01/12/2025 11:17 AM CDT [facility] PATHOLOGY LAB Number of Slides 1 01/12/2025 11:17 AM CDT [facility] PATHOLOGY LAB Number of Control Slides 1 01/12/2025 11:17 AM CDT [facility] PATHOLOGY LAB Pathology/Cytolo gy SLIDE / Unknown 09/05/2024 12:00 PM CDT 09/06/2024 3:13 PM CDT us Bobby Finley MD LAB - PATHOLOGY/CYTOLOGY ORDERAB LES Final Result Performing Organization Address City/State/[facility] Co de Phone Number [facility] PATHOLOGY LAB [address] [phone] documented in this encounter Visit Diagnoses Diagnosis Dysphagia, unspecified documented in this encounter
--- OUTSIDE RECORDS SUMMARY | 2025-02-01 15:11 | XMS_ITS | Clinical Summary ---
Author Organization [facility] Address [address] [place] [address] Care Team Providers Care Internet Assessor Name Role Phone Faye Alvarado MD Primary Care Pro vider Beckie Ansari MD Unavailable [phone] Tyrell Alvarez MD Unavailable [phone] Estella Robles MD Unavailable [phone] Colby Townsend DPM Unavailable [phone] Allergies Active Allergy Reactions Criticality Noted Date [...] Schedule Tau Pet scan. [facility] Arthralgia 03/22/2024 Assessment & Plan (03/22/2024 11:28 AM ACCOUNTANT): Bilateral hip, hand, wrist, knee pain and lower back pain- refer to rheumatology to evaluate for inflammatory arthritis. Age-related osteoporosis wit hout current pathological fracture 12/03/2023 Assessment & Plan (03/22/2024 11:26 AM ACCOUNTANT): Check vitamin D. Patient will get labs [...] nephrology Assessment & Plan (05/05/2023 2:56 PM ACCOUNTANT): Chronic, follows with nephrology. Follow up as scheduled. Hospital discharge follow-up 05/05/2023 Assessment & Plan (05/05/2023 2:56 PM ACCOUNTANT): [employer] NP have personally reviewed pertinent inpatient and/or ED records, including discharge medications and [facility] if applicable. This patient's discharge medication list has been reviewed and reconciled with her outpatient medication list and has also been reviewed with patient and/or caregiver. I have noted any changes. S/P right hip fracture 05/05/2023 Closed fracture of right hip 05/05/2023 Assessment & Plan (05/05/2023 2:57 PM ACCOUNTANT): New problem, s/p total hip replacement. Home health ordered. Lives alone, needs help with transportation, ACO referral placed. Acute midline thoracic back pain 05/05/2023 Assessment & Plan (05/05/2023 2:58 PM ACCOUNTANT): New problem since falling. X-rays were done at outside hospital but I have no records from the hospitalization. Pain is ongoing, requiring tramadol. Updated x-ray of thoracic and lumbar ordered to r/o compression fracture. Heart murmur 03/17/2023 Assessment & Plan (03/22/2024 11:54 AM ACCOUNTANT): Had echocardiogram in March last year and no significant valvular heart disease and LV function was normal. Assessment & Plan (03/17/2023 8:28 PM ACCOUNTANT): Schedule echocardiogram Weight loss 10/16/2022 Assessment & Plan (10/18/2022 9:19 PM CDT): New problem. Check CBC, TSH, CMP Fatigue 10/16/2022 Assessment & Plan (10/18/2022 9:20 PM CDT): New problem. Check CBC, TSH, CMP Dyspnea on exertion 10/16/2022 Assessment & Plan (03/22/2024 11:55 AM ACCOUNTANT): If symptoms worsen then consider referral to [...] 02/13/2022 Assessment & Plan (06/08/2023 3:01 PM ACCOUNTANT): Reviewed fall risk and fall assessment. Reviewed [...] 06/06/2021 Assessment & Plan (06/06/2021 11:13 AM ACCOUNTANT): Longstanding right ht Pt denies signs and [...] 06/04/2020 Assessment & Plan (06/06/2021 11:17 AM ACCOUNTANT): Continue retaine prn Posterior vitreous detachment of both eyes 06/04 Assessment & Plan (06/29/2024 1:39 PM CDT): Stable. Observe. The signs and symptoms of retinal detachment were reviewed. Advised urgent evaluation with any onset. Pseudophakia, both eyes 06/04/2020 Assessment & Plan (06/29/2024 1:39 PM CDT): Clear. Otc readers prn. Assessment & Plan (06/06/2021 11:16 AM ACCOUNTANT): Lenses centered and stable, monitor Ptosis of left eyelid 06/04/2020 Assessment & Plan (06/29/2024 1:39 PM CDT): Offered surgical consult but pt elects observation Assessment & Plan (06/06/2021 12:30 PM ACCOUNTANT): Stable, monitor Paresthesia 10/10/2019 Assessment & Plan (10/10/2019 12:42 PM CDT): Worsening problem. Refer to Neurology Body mass index (BMI) 19.9 or less, adult 2018 Assessment & Plan (06/08/2023 2:59 PM ACCOUNTANT): Patient is thin, but healthy Assessment & [...] exercise. Assessment & Plan (04/27/2019 11:33 AM ACCOUNTANT): Weight is stable and unchanged for patient. Assessment & Plan (02/01/2019 5:14 PM CDT): Patient is thin, but is healthy Grief 02/01/2019 Assessment & Plan (02/01/2019 5:16 PM CDT): This is related to her who has in November 2018. We discussed local measures to treat grief and bereavement. Advised to enlist help of family, friends and yazidi. There are no signs or symptoms of major depression BMI 20.0-20.9, adult 10/27/2017 Assessment & Plan (03/17/2023 8:27 PM ACCOUNTANT): Patient at healthy weight. Continue healthy diet- [...] 10/27/2017 Assessment & Plan (06/08/2023 3:00 PM ACCOUNTANT): Continue current medications and call if problems [...] 07/21/2017 Assessment & Plan (06/08/2023 2:59 PM ACCOUNTANT): Continue current medications and call if problems or side effects. Follow up with bone health Assessment & Plan (05/05/2023 2:56 PM ACCOUNTANT): Chronic, on reclast. Continue to follow up with bone health Assessment & Plan (03/17/2023 8:27 PM ACCOUNTANT): Check vitamin D level Assessment & Plan [...] 10/21/2016 Assessment & Plan (03/17/2023 8:28 PM ACCOUNTANT): Reviewed fall risk and fall assessment. Patient [...] allergic rhinitis. Advised the patient to use tknx-whs-busqxmq antihistamine or qlqn-vyo-fbtsimz nasal spray Medicare annual wellness visit, subsequent 10/20 Assessment & Plan (03/22/2024 11:26 AM ACCOUNTANT): Plan as below Assessment & Plan (03/17/2023 8:29 PM ACCOUNTANT): Patient here for annual Medicare wellness visit [...] pressure Assessment & Plan (06/08/2023 2:59 PM ACCOUNTANT): Continue current medications. Continue low salt diet, home blood pressure checks and low salt diet. Avoid NSAIDs and decongestants which may raise blood pressure Assessment & Plan (05/05/2023 2:55 PM ACCOUNTANT): Chronic, uncontrolled. Was started on hydralazine 12.5 mg TID while in the hospital. Amlodipine was restarted as well. She has peripheral edema historically with higher doses of amlodipine. Increase losartan to 100 mg daily, will need to follow up BMP to monitor her CKD. Will follow up in the office in 1 month. Assessment & Plan (03/17/2023 8:34 PM ACCOUNTANT): Patient is stopping amlodipine due to peripheral [...] at home and will communicate readings via 2U. She will call in 1 week with [...] cholesterol. Assessment & Plan (03/22/2024 11:25 AM ACCOUNTANT): Continue strict low fat diet and regular exercise to lower cholesterol. Assessment & Plan (06/08/2023 3:01 PM ACCOUNTANT): Continue strict low fat diet and regular exercise to lower cholesterol. Assessment & Plan (03/17/2023 8:29 PM ACCOUNTANT): Continue strict low fat diet and regular [...] Encounters Date Type Department Care Team Description 01/29/2025 Documentation [facility] [address] [place] [address] [place] [phone] Katiana Johnson RMA Precivity Note 01/15/2025 11:00 AM CDT Lab [facility] [address] [place] [address] [place] [phone] Alzheimer's disease (Primary Dx) 01/08/2025 Telephone [facility] [address] [place] [address] [place] [phone] Katiana Johnson RMA Schedule Neurodiagnostic Lab 12/18/2024 12:26 PM CDT - 12/18/2024 11:59 PM CDT Hospital Encounter [facility] [address] [place] [address] Discharge Disposition: Discharge to home or self care 12/18/2024 12:26 PM CDT - 12/18/2024 11:59 PM CDT Hospital Encounter [facility] [address] [place] [address] Alzheimer's disease Discharge Disposition: Discharge to home or self care 12/12/2024 12:15 PM CDT Office Visit [facility] at [address] [address] Gorge Hodge NP Skin tear of right forearm without complication, initial encounter (Primary Dx) 11/26/2024 Orders Only [facility] [address] [place] [address] Belle Alegria MD 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 More than 4 times per year 05/07/2023 Do you belong to any clubs o r organizations such as yazidi groups, unions, fraternal or athletic groups, or [...] place to sleep or slept in a fpc (including now)? No 05/07/2023 Comments No Sex and Gender Information Value Date Recorded Sex Assigned at Not on file Legal Sex Female 11:40 PM ACCOUNTANT Gender Identity Female 02/10/2021 6:27 PM CDT [...] (2 of 3) 08/25/2011 06/30/2011 Covid-19 Vaccine ( - 2024-05 6 season) 2024 07/22/2021, 01/23/2021, 05/28/2020, Additional [...] of right forearm without complication, initial encounter DEXA TBS AXIAL SKELETON BONE DENSITY 1 [...] TAU-PET/CT IMAGING DATE OF STUDY: 12/18/2024 SCANNER: [facility] [employer] (NV1). This is a high-resolution scanner, which [...] TAU-PET/CT IMAGING DATE OF STUDY: 12/18/2024 SCANNER: [facility] [employer] (NV1). This is a high-resolution scanner, which [...] Alternatives discussed: No treatment, observation and referral [place] protocol: Procedure explained and questions answered to patient or proxy's satisfaction: yes Patient identity confirmed: Verbally with patient Procedure details: Wound location: right elbow. Wound age (days): 2 Wound surface area (sq cm): 2 Debridement performed: No Dressing: Dressing applied: Telfa pad and Vaseline gauze Wrapped with: Earline 2 inch Post-procedure details: Procedure completion: Tolerated well, no immediate complications us Gorge Hodge NP IN CLINIC/BEDSIDE ORDERABLES Fi nal Result * Dexa TBS Axial Skeleton Bone Density 1 or more sites (12/03/2023 2:02 PM CDT) Anatomical Region Laterality Modality Wrist, Body N/A Radiographic Ykra ging Narrative 12/03/2023 5:41 PM CDT Patient Name: Jia Sequeira Date of : 1940 Date of scan: 12/03/2023 Bone mineral density was performed on a HoloEpiBone Discovery Densitometer. Based on machine cross-calibration and [...] by the International Society of Clinical Densitometry. [id number] Dina Clinton [facility] DXA PROCEDURES Final Result from Last 3 Months or Most Recently Relevant to Health Maintenance Insurance MEDICARE [facility] MEDICARE [facility] MEDICARE SUPPLEMENT MEDICARE BLUE CROSS MEDICARE SUPPLEMENT Advance Directives For more information, please contact: [phone] Documents on File Type Date Recorded Patient Manufacturing Systems Engineer Expl anation ADVANCE DIRECTIVE 05/07/2019 ADVANCE DIRECTIVE 02/21/2019 Care Teams Internet Assessor Relationship Specialty Start Date End Date Faye Alvarado MD [address], [place] [address] PCP - General 04/18/09 Beckie Ansari MD [address] [facility] [address] [place] [address] Referring Physician Endocrinology Diabetes & Metabolism 02/01/19 Tyrell Alvarez MD [address] [facility] [address] [place] [address] Referring Physician Orthopedic Surgery 02/01/19 Estella Robles MD [address], [place] [address] Consulting Physician Dermatology 02/01/19 Colby Townsend DPM [address] [place] [address] Referring Physician Foot and Ankle Surg 02/01/19
== END 2025-02-01 14:05 | disposition home or self-care (01) ==
PROVIDERS: PCP Nurse Practitioner Adult Health; Visit Provider Nurse Practitioner Adult Health
DX: M54.12 Radiculopathy, cervical region (principal); Z98.890 Other specified postprocedural states
CPT/HCPCS: 72050; 72110